=== PATIENT | male | born 1950 | race Two or more races ===

== ENCOUNTER 2017-09-25 09:13 | Inpatient (IN) | payer MEDICARE, MEDICAID ==
[~2017-09-25] VITALS: Ht 177.8 cm; Wt 92.8 kg
[2017-09-25] MEDS ORDERED: SODIUM CHLORIDE 0.9% 1,000 ML IV ONE (10:36)
[2017-09-25] MEDS ORDERED: ONDANSETRON HCL 4 MG/2 ML VIAL IV ONE (10:45)
[2017-09-25] MEDS ORDERED: KETOROLAC TROMETH 30 MG/ML 1ML VIAL IV ONE (10:45)
[2017-09-25] MEDS ORDERED: DEXAMETHASONE SOD PHOS 4 MG/1ML SDV INJ IV ONE (10:45)
[2017-09-25 11:23] LABS: Basophils # (auto) 0.3 uL; Basophils % (auto) 1.1 % (0.0-2.0); Eosinophils # (auto) 0 uL; Eosinophils % (auto) 0.1 % (0.0-7.0); Hematocrit 34.5 % (41.0-53.0); Hemoglobin 11.3 g/dL (13.5-17.5); Lymphocytes # (auto) 1.5 uL; Lymphocytes % (auto) 5.1 % (10.0-50.0); Mean Corpuscular Hemoglobin 32.1 pg (28.0-32.0); Mean Corpuscular Hgb Conc. 32.7 g/dL (32.0-36.0); Mean Corpuscular Volume 98.1 fL (80.0-100.0); Monocytes # (auto) 2.9 uL; Monocytes % (auto) 9.5 % (0.0-12.0); Neutrophils # (auto) 25.2 uL; Neutrophils % (auto) 84.2 % (37.0-80.0); Nucleated Red Blood Cells % 0.1 %; Platelet Count (auto) 256 10^3/uL (140-450); Red Blood Cells 3.52 10^6/uL (4.5-5.90); Red Cell Distribution Width 15.6 % (11.8-14.3); White Blood Cell 29.9 10^3/uL (4.4-10.8)
[2017-09-25 11:43] LABS: Albumin 2.9 g/dL (3.4-5.0); BUN/Creatinine Ratio 14.8; Bilirubin, Total 1.9 mg/dL (0.2-1.0); Calcium 8.3 mg/dL (8.5-10.1); Magnesium 2.6 mg/dL (1.6-2.6); Potassium 3.2 mmol/L (3.5-5.1); Total Protein 7.1 g/dL (6.4-8.2); Uric Acid 6.6 mg/dL (3.5-7.2)
[2017-09-25] MEDS ORDERED: POTASSIUM CHL 10% (20 MEQ/15ML) 15ml ORAL SOLN PO ONE (13:15)
[2017-09-25] MEDS ORDERED: cefTRIAXone 1GM/10ml IVPUSH 10 ML IV ONE (13:15)
[2017-09-25 16:19] LABS: Urine Bacteria NONE SEEN /hpf (None Seen); Urine Blood Negative /uL (Negative); Urine Hyaline Cast FEW /lpf (0 - 2); Urine Specific Gravity 1.016 (1.001-1.035); Urine WBC 1 /hpf (0 - 3)
[2017-09-25] MEDS ORDERED: NITROGLYCERIN 0.4 MG SL TAB SL PRN (19:30)
[2017-09-25] MEDS ORDERED: SOD CHL 0.45% 1,000 ML IV SCH (19:30)
[2017-09-25] MEDS ORDERED: MORPHINE SULFATE 4 MG/ML SYR/VIAL IV PRN (19:30)
[2017-09-25] MEDS ORDERED: TRIATAB3 PO (21:17)
[2017-09-25] MEDS ORDERED: SOTA80TA PO (21:17)
[2017-09-25] MEDS ORDERED: CARV12.544 PO (21:17)
[2017-09-25] MEDS ORDERED: HYOS0.3723 PO (21:17)
[2017-09-25] MEDS ORDERED: ISOS30TA4 PO (21:17)
[2017-09-25] MEDS ORDERED: ATOR1TAB PO (21:17)
[2017-09-25] MEDS ORDERED: DUTA0.5C11 PO (21:17)
[2017-09-25] MEDS ORDERED: IBUP800T24 PO (21:17)
[2017-09-25] MEDS ORDERED: ASPI81TA27 PO (21:17)
[2017-09-25] MEDS ORDERED: ALLO300T2 PO (21:17)
[2017-09-25] MEDS ORDERED: TICA90TA PO (21:17)
[2017-09-25] MEDS ORDERED: LEVO100T8 PO (21:17)
[2017-09-25] MEDS ORDERED: EZET10TA6 PO (21:17)
[2017-09-25] MEDS ORDERED: POTA10TA34 PO (21:17)
[2017-09-25] MEDS: CLINDAMYCIN 600MG IV 50 ML IV SCH (21:33)
[2017-09-25] MEDS ORDERED: TICAGRELOR 90 MG TAB PO SCH (22:00)
[2017-09-25] MEDS: SOTALOL HCL 80 MG TAB PO SCH (22:00)
[2017-09-25] MEDS ORDERED: IBUPROFEN 800 MG TAB PO PRN (22:00)
[2017-09-25] MEDS: D5W/SOD CHL 0.45% 1,000 ML IV SCH (22:25)
[2017-09-25] MEDS: ATORVASTATIN 20 MG TAB PO SCH (22:53)
[2017-09-25] MEDS: HYDROcodone-ACET 5/325MG TAB PO PRN (22:58)
[2017-09-25] MEDS: PIPERACILLIN-TAZOB 3.375GM 50 ML IV SCH (23:23)
[2017-09-26] MEDS: HYDROcodone-ACET 5/325MG TAB PO PRN ×2 (05:00→09:32)
[2017-09-26] MEDS: CLINDAMYCIN 600MG IV 50 ML IV SCH ×3 (05:44→22:14)
[2017-09-26 06:10] LABS: Hematocrit 34.5 % (41.0-53.0); Hemoglobin 10.8 g/dL (13.5-17.5); Mean Corpuscular Hemoglobin 32.6 pg (28.0-32.0); Mean Corpuscular Hgb Conc. 31.4 g/dL (32.0-36.0); Mean Corpuscular Volume 103.9 fL (80.0-100.0); Platelet Count (auto) 212 10^3/uL (140-450); Red Blood Cells 3.32 10^6/uL (4.5-5.90); Red Cell Distribution Width 16.1 % (11.8-14.3); White Blood Cell 27.5 10^3/uL (4.4-10.8)
[2017-09-26 06:12] LABS: Band Neutrophils % (manual) 0; Basophils % (manual) 0 (0.0-2.0); Blast Cells 0; Eosinophils % (manual) 0 (0-7); Metamyelocytes % 0; Myelocytes % 0; Promyelocytes % 0; Reactive Lymphocytes 0
[2017-09-26 06:16] LABS: Albumin 2.5 g/dL (3.4-5.0); BUN/Creatinine Ratio 19.6; Calcium 8.3 mg/dL (8.5-10.1); Potassium 3.5 mmol/L (3.5-5.1); Total Protein 6.8 g/dL (6.4-8.2)
[2017-09-26 07:48] LABS: Lymphocytes % (manual) 5 (10.0-50.0); Monocytes % (manual) 4 (0-12)
[2017-09-26] MEDS: LEVOTHYROXINE SODIUM 100 MCG TAB PO SCH (07:49)
[2017-09-26] MEDS: PIPERACILLIN-TAZOB 3.375GM 50 ML IV SCH ×3 (07:49→18:52)
[2017-09-26] MEDS: D5W/SOD CHL 0.45% 1,000 ML IV SCH ×2 (07:50→17:15)
[2017-09-26] MEDS ORDERED: HYDROCORTISONE 10 MG TAB PO SCH ×2 (08:00→18:00)
[2017-09-26] MEDS: TRIAMTERENE/HCTZ 37.5/25 MG CAP PO SCH (10:00)
[2017-09-26] MEDS: SOTALOL HCL 80 MG TAB PO SCH ×2 (10:00→21:48)
[2017-09-26] MEDS: ASPirin 81 mg TAB PO SCH (10:00)
[2017-09-26] MEDS: ALLOPURINOL 300 MG TAB PO SCH (10:00)
[2017-09-26] MEDS: POTASSIUM CHL 10 Meq TABLET PO SCH (10:00)
[2017-09-26] MEDS: AVODART 0.5 MG PO SCH (10:00)
[2017-09-26] MEDS: ISOSORBIDE MONONITRATE 60 MG TAB PO SCH (10:00)
[2017-09-26 10:27] LABS: Uric Acid 6.3 mg/dL (3.5-7.2)
[2017-09-26 11:25] LABS: CRP High Sensitivity 25.47 mg/dL (< 0.3)
[2017-09-26] MEDS: methylPREDNISolone SOD SUCC 40 MG/ML VL IV SCH ×2 (14:12→22:15)
[2017-09-26] MEDS: ONDANSETRON HCL 4 MG/2 ML VIAL IV PRN (15:20)
[2017-09-26] MEDS ORDERED: ALPRAZolam 0.5 MG TAB PO ONE (15:45)
[2017-09-26] MEDS: HYOSCYAMINE SULF 0.125 MG TAB PO PRN (16:00)
[2017-09-26] MEDS ORDERED: FLEET ENEMA(ADULT) 135 ML PR ONE (17:15)
[2017-09-26] MEDS ORDERED: SODIUM CHLORIDE 0.9% 1,000 ML IV ONE (22:00)
[2017-09-26] MEDS: ATORVASTATIN 20 MG TAB PO SCH (22:15)
[2017-09-27] MEDS ORDERED: metroNIDAZOLE 500MG/100ML 100 ML IV ONE (00:30)
[2017-09-27] MEDS: PIPERACILLIN-TAZOB 3.375GM 50 ML IV SCH ×4 (01:52→17:55)
[2017-09-27] MEDS: D5W/SOD CHL 0.45% 1,000 ML IV SCH ×3 (03:18→23:15)
[2017-09-27 05:45] LABS: Basophils # (auto) 0 uL; Basophils % (auto) 0.1 % (0.0-2.0); Eosinophils # (auto) 0 uL; Hematocrit 27.5 % (41.0-53.0); Hemoglobin 9.1 g/dL (13.5-17.5); Lymphocytes # (auto) 0.5 uL; Lymphocytes % (auto) 1.8 % (10.0-50.0); Mean Corpuscular Hemoglobin 32.4 pg (28.0-32.0); Mean Corpuscular Hgb Conc. 33.3 g/dL (32.0-36.0); Mean Corpuscular Volume 97.3 fL (80.0-100.0); Monocytes # (auto) 0.3 uL; Monocytes % (auto) 1.3 % (0.0-12.0); Neutrophils # (auto) 25.3 uL; Neutrophils % (auto) 96.8 % (37.0-80.0); Platelet Count (auto) 193 10^3/uL (140-450); Red Blood Cells 2.82 10^6/uL (4.5-5.90); Red Cell Distribution Width 15.7 % (11.8-14.3); White Blood Cell 26.1 10^3/uL (4.4-10.8)
[2017-09-27 06:01] LABS: Albumin 2.1 g/dL (3.4-5.0); Bilirubin, Direct 0.4 mg/dL (0-0.2); Bilirubin, Total 0.8 mg/dL (0.2-1.0); Calcium 7.8 mg/dL (8.5-10.1); Potassium 3.3 mmol/L (3.5-5.1)
[2017-09-27] MEDS: CLINDAMYCIN 600MG IV 50 ML IV SCH ×2 (06:26→14:25)
[2017-09-27] MEDS: methylPREDNISolone SOD SUCC 40 MG/ML VL IV SCH ×3 (06:27→22:13)
[2017-09-27] MEDS: LEVOTHYROXINE SODIUM 100 MCG TAB PO SCH ×2 (07:00→11:31)
[2017-09-27] MEDS: metroNIDAZOLE 500MG/100ML 100 ML IV SCH ×3 (07:54→22:13)
[2017-09-27 09:50] LABS: Hepatitis B Surface Antibody Negative
[2017-09-27 10:00] LABS: Hepatitis B Surface Antigen Negative (Negative)
[2017-09-27] MEDS: AVODART 0.5 MG PO SCH (10:00)
[2017-09-27] MEDS: ISOSORBIDE MONONITRATE 60 MG TAB PO SCH (10:00)
[2017-09-27 10:27] LABS: Hepatitis C Antibody Negative (Negative)
[2017-09-27 10:28] LABS: Hepatitis A Total Antibody Positive; Hepatitis B Core Total AB Negative
[2017-09-27] MEDS: SOTALOL HCL 80 MG TAB PO SCH ×2 (10:43→22:14)
[2017-09-27] MEDS: TRIAMTERENE/HCTZ 37.5/25 MG CAP PO SCH (10:43)
[2017-09-27] MEDS: ALLOPURINOL 300 MG TAB PO SCH (11:31)
[2017-09-27] MEDS: ASPirin 81 mg TAB PO SCH (11:31)
[2017-09-27] MEDS: POTASSIUM CHL 10 Meq TABLET PO SCH (11:31)
[2017-09-27] MEDS: HYOSCYAMINE SULF 0.125 MG TAB PO PRN (21:13)
[2017-09-27] MEDS: ALPRAZolam 0.5 MG TAB PO PRN (21:13)
[2017-09-27] MEDS: ATORVASTATIN 20 MG TAB PO SCH (22:14)
[2017-09-28] MEDS: PIPERACILLIN-TAZOB 3.375GM 50 ML IV SCH ×5 (00:21→23:05)
[2017-09-28] MEDS: methylPREDNISolone SOD SUCC 40 MG/ML VL IV SCH ×4 (06:09→23:05)
[2017-09-28] MEDS: metroNIDAZOLE 500MG/100ML 100 ML IV SCH ×3 (06:42→22:00)
[2017-09-28] MEDS: LEVOTHYROXINE SODIUM 100 MCG TAB PO SCH (07:51)
[2017-09-28] MEDS: SOTALOL HCL 80 MG TAB PO SCH ×2 (07:52→23:04)
[2017-09-28] MEDS: ASPirin 81 mg TAB PO SCH (07:52)
[2017-09-28] MEDS: ISOSORBIDE MONONITRATE 60 MG TAB PO SCH (07:52)
[2017-09-28] MEDS: TRIAMTERENE/HCTZ 37.5/25 MG CAP PO SCH (07:52)
[2017-09-28] MEDS: POTASSIUM CHL 10 Meq TABLET PO SCH (07:53)
[2017-09-28] MEDS: ALLOPURINOL 300 MG TAB PO SCH (07:53)
[2017-09-28] MEDS: AVODART 0.5 MG PO SCH (07:57)
[2017-09-28] MEDS: D5W/SOD CHL 0.45% 1,000 ML IV SCH ×2 (09:26→18:41)
[2017-09-28 10:45] LABS: Mean Corpuscular Hemoglobin 31.9 pg (28.0-32.0)
[2017-09-28 10:46] LABS: Mean Corpuscular Hgb Conc. 32.2 g/dL (32.0-36.0); Mean Corpuscular Volume 99.2 fL (80.0-100.0); Platelet Count (auto) 204 10^3/uL (140-450); Red Blood Cells 2.52 10^6/uL (4.5-5.90); White Blood Cell 18.5 10^3/uL (4.4-10.8)
[2017-09-28 11:30] LABS: Band Neutrophils % (manual) 0; Basophils % (manual) 0 (0.0-2.0); Blast Cells 0; Eosinophils % (manual) 0 (0-7); Metamyelocytes % 0; Myelocytes % 0; Promyelocytes % 0; Reactive Lymphocytes 0
[2017-09-28 13:17] LABS: Albumin 2.1 g/dL (3.4-5.0); Calcium 8.2 mg/dL (8.5-10.1); Potassium 3.2 mmol/L (3.5-5.1)
[2017-09-28 13:19] LABS: BUN/Creatinine Ratio 23.5
[2017-09-28 13:24] LABS: Bilirubin, Total 0.6 mg/dL (0.2-1.0); Total Protein 5.6 g/dL (6.4-8.2)
[2017-09-28] MEDS ORDERED: POTASSIUM CHL 20 Meq TABLET PO ONE (14:00)
[2017-09-28 14:20] LABS: Lymphocytes % (manual) 1 (10.0-50.0); Monocytes % (manual) 1 (0-12)
[2017-09-28 17:28] VITALS: BP 119/71
[2017-09-28 22:11] VITALS: BP 134/72
[2017-09-28] MEDS: HYOSCYAMINE SULF 0.125 MG TAB PO PRN (23:02)
[2017-09-28] MEDS: ATORVASTATIN 20 MG TAB PO SCH (23:03)
[2017-09-28] MEDS: ALPRAZolam 0.5 MG TAB PO PRN (23:03)
[2017-09-29 00:46] VITALS: BP 134/72
[2017-09-29] MEDS: metroNIDAZOLE 500MG/100ML 100 ML IV SCH (04:46)
[2017-09-29] MEDS: PIPERACILLIN-TAZOB 3.375GM 50 ML IV SCH (04:46)
[2017-09-29 05:34] VITALS: BP 135/81
[2017-09-29] MEDS: HYOSCYAMINE SULF 0.125 MG TAB PO PRN (05:45)
[2017-09-29] MEDS: ONDANSETRON HCL 4 MG/2 ML VIAL IV PRN (05:46)
[2017-09-29] MEDS: methylPREDNISolone SOD SUCC 40 MG/ML VL IV SCH (06:00)
== END 2017-09-29 09:15 | disposition short-term general hospital (02) | DRG 871 ==
LOC: ER 09:13 → EDBD 09:13 → OVERFLOW 09:14 → EAST 09-28 15:16 → TELE-EAST 09-28 15:28
PROVIDERS: ADMIT Specialist; ATTEND Specialist
DX: A41.9 Sepsis, unspecified organism (principal); R65.21 Severe sepsis with septic shock; E44.0 Moderate protein-calorie malnutrition; N17.9 Acute kidney failure, unspecified; I11.9 Hypertensive heart disease without heart failure; E87.6 Hypokalemia; I25.5 Ischemic cardiomyopathy; F41.9 Anxiety disorder, unspecified; E86.1 Hypovolemia; I25.10 Atherosclerotic heart disease of native coronary artery without angina pectoris; M10.071 Idiopathic gout, right ankle and foot; Z79.899 Other long term (current) drug therapy; Z82.49 Family history of ischemic heart disease and other diseases of the circulatory system; Z95.5 Presence of coronary angioplasty implant and graft; Z95.0 Presence of cardiac pacemaker; Z68.29 Body mass index [BMI] 29.0-29.9, adult; Z88.8 Allergy status to other drugs, medicaments and biological substances; Z91.041 Radiographic dye allergy status; Z91.040 Latex allergy status
CPT/HCPCS: 36415; 36600; 51702; 71046; 73600; 74176; 76700; 80053; 80076; 81001; 82805; 82962; 83036; 83605; 83735; 84550; 85007; 85025; 85027; 85652; 86141; 86704; 86706; 86708; 86803; 87040; 87081; 87086; 87340; 93005; 96361; 96365; 96375; G0378; J1100; J1885; J2405; J2543; J3490

== ENCOUNTER 2020-02-26 17:41 | Emergency (ER) | payer MEDICARE, MEDICAID ==
[~2020-02-26] VITALS: Ht 175.3 cm; Wt 97.5 kg
[~2020-02-26 17:41] MED LIST: ALLO300T2 PO; ASPI-543 PO; ATOR1TAB PO; CARV12.544 PO; DUTA0.5C11 PO; EZET10TA22 PO; HYOS0.3723 PO; IBUP800T24 PO; ISOS30TA4 PO; LEVO100T8 PO; POTA1TAB61 PO; SOTA80TA PO; TICA90TA PO; TRIATAB3 PO
[2020-02-26 20:37] LABS: Basophils # (auto) 0 10 ^3/uL (0-0.2); Basophils % (auto) 0.3 % (0.0-2.0); Eosinophils # (auto) 0 10 ^3/uL (0-0.8); Eosinophils % (auto) 0.2 % (0.0-7.0); Hematocrit 41.8 % (41.0-53.0); Hemoglobin 14.1 g/dL (13.5-17.5); Lymphocytes # (auto) 0.9 10 ^3/uL (0.4-5.4); Lymphocytes % (auto) 8.1 % (10.0-50.0); Mean Corpuscular Hemoglobin 32.9 pg (28.0-32.0); Mean Corpuscular Hgb Conc. 33.8 g/dL (32.0-36.0); Mean Corpuscular Volume 97.2 fL (80.0-100.0); Monocytes # (auto) 0.6 10 ^3/uL (0-1.3); Monocytes % (auto) 4.9 % (0.0-12.0); Neutrophils # (auto) 10.1 10 ^3/uL (1.6-8.6); Neutrophils % (auto) 86.5 % (37.0-80.0); Platelet Count (auto) 204 10^3/uL (140-450); Red Cell Distribution Width 14.6 % (11.8-14.3); White Blood Cell 11.6 10^3/uL (4.4-10.8)
[2020-02-26 20:51] LABS: Albumin 3.6 g/dL (3.4-5.0); BUN/Creatinine Ratio 16.5; Calcium 8.9 mg/dL (8.5-10.1); Potassium 3.3 mmol/L (3.5-5.1)
[2020-02-26 20:54] LABS: Bilirubin, Total 0.9 mg/dL (0.2-1.0); Total Protein 7.3 g/dL (6.4-8.2)
[2020-02-26 21:02] LABS: INR 1.03 (0.9-1.15); Partial Thromboplastin Time 26.7 sec (23.64-32.05)
[2020-02-26] MEDS ORDERED: cefTRIAXone W LIDOCAINE 1 GM IM IM ONE (21:15)
[2020-02-26] MEDS ORDERED: LIDOCAINE 1% HCL (LOCAL ANESTH.) INJ 20ML MDV ONE (21:29)
[2020-02-26] MEDS ORDERED: cefTRIAXone SOD 1,000 MG VL ONE (21:30)
[2020-02-26 22:15] VITALS: BP 162/87
== END 2020-02-26 22:43 | disposition home or self-care (01) ==
LOC: ER 17:41
DX: L03.115 Cellulitis of right lower limb (principal); I10 Essential (primary) hypertension; I25.810 Atherosclerosis of coronary artery bypass graft(s) without angina pectoris; Z86.718 Personal history of other venous thrombosis and embolism; Z95.0 Presence of cardiac pacemaker; Z98.61 Coronary angioplasty status; Z79.899 Other long term (current) drug therapy; Z91.040 Latex allergy status; Z88.8 Allergy status to other drugs, medicaments and biological substances
CPT/HCPCS: 36415; 80053; 85025; 85610; 85730; 93971; 99284; J0696; J2001

== ENCOUNTER 2024-07-18 16:18 | Inpatient (IN) | payer MEDICAID, MEDICARE ==
[~2024-07-18] VITALS: Ht 175.3 cm; Wt 100.3 kg
[~2024-07-18 16:18] MED LIST changes: +ATOR-47 PO; -ATOR1TAB PO; +IBUP-1456 PO; -IBUP800T24 PO; +ISOS1TAB28 PO; -ISOS30TA4 PO; +POTA-215 PO; -POTA1TAB61 PO
--- NOTE | 2024-07-18 16:45 | ED.PDOC ---
GI ASSESSMENT HPI Comments 73-year-old male who comes in with chief complaint of abdominal pain. The patient states that the pain is somewhat epigastric in nature and radiates towards his back. He states that he was at [employer] and the pain was so severe that he had to lay down on the ground. 911 was called and the patient was transferred to our facility. The patient now states that the pain has lasted for about an hour. He rates the pain as a 10/10. When the paramedics arrived, the patient had a blood pressure of 95/65. The patient's blood pressure then went up to 105/65. He denies any nausea or vomiting. The patient also denies any diarrhea at this time. The patient recently had an ablation done on his heart. Time Seen by MD: 16:26 Primary Care Provider: KRISSY Reviewed Notes: Nurses Notes, Cardiopulmonary Physical Therapist Notes, Medications, Allergies (Allergies listed above) Allergies: Coded Allergies: Amlodipine (Verified Allergy, Severe, 09/25/17) Iodine (Verified Allergy, Severe, 09/25/17) Latex (Verified Allergy, Severe, 09/25/17) Home Meds Reported Medications Ibuprofen (Ibuprofen) 800 Mg Tab, 800 MG PO BIDP PRN for MILD PAIN OR TEMP>100.4, MG 09/25/17 Hyoscyamine Sulfate (Hyoscyamine Sulfate) 0.375 Mg Tab, 0.375 MG PO BIDPRN for 30 Days, MG 09/25/17 Aspirin (Aspir-Low) 81 Mg Tab, 81 MG PO DAILY for 30 Days, MG 09/25/17 Ticagrelor Base (BRILINTA) 90 Mg Tab, 90 MG PO BID, TAB 09/25/17 Carvedilol (Carvedilol) 12.5 Mg Tab, 1 TAB PO BID, #180 TAB 1 Refill 09/25/17 Triamterene & Hydrochlorothiaz (Maxzide-25) Tab, 1 TAB PO DAILY, #30 TAB 5 Refills 09/25/17 Dutasteride (Avodart) 0.5 Mg Cap, 1 CAP PO DAILY, #30 CAP 5 Refills 09/25/17 Sotalol Hcl (Sotalol Hcl) 80 Mg Tab, 1 TAB PO BID, #60 TAB 5 Refills 09/25/17 Potassium Chloride (Klor-Con M10) 10 Meq Tab, 1 TAB PO DAILY, #30 TAB 5 Refills 09/25/17 Isosorbide Mononitrate (Isosorbide Mononitrate Er) 30 Mg Tab, 30 MG PO DAILY for 30 Days, MG 09/25/17 Levothyroxine Sodium (Levothyroxine Sodium) 100 Mcg Tab, 100 MCG PO QAM for 30 Days, MCG 09/25/17 Allopurinol (Allopurinol) 300 Mg Tab, 300 MG PO DAILY for 30 Days, MG 09/25/17 Ezetimibe (Zetia) 10 Mg Tab, 1 TAB PO DAILY, #30 TAB 5 Refills 09/25/17 Atorvastatin Calcium (ATORVASTATIN CALCIUM) 80 Mg Tab, 80 MG PO HS, TAB 09/25/17 Information Source: Patient, Emergency Med Personnel Mode of Arrival: EMS Timing: Hours Duration: Since onset Prehospital treatment: 12 Lead EKG, Slot Ambassador Quality: Aching, Burning Vomitus: None Stool: Normal Severity: Severe Recent: None Recent Hx of: None Pain Location: Epigastric Modifying Factors: Nothing Associated sign and symptoms: Abdominal Pain Past Medical History PAST MEDICAL HISTORY: AFIB, CAD, CHF, High Lipids, HTN, Thyroid Past Medical History (Other): Pancreatitis Surgical History: CABG, Cholecystectomy, Pacemaker, PTCA Surgical History (Other): Recent cardiac ablation, right knee surgery Family History Family History: Unknown Social History Smoker: Non-Smoker Alcohol: Rarely Drugs: Denies Drug Use Lives In: Home Constitutional: denies: chills, diaphoresis, fatigue, fever, malaise, sweats, weakness, others EENTM: denies: blurred vision, double vision, ear bleeding, ear discharge, ear drainage, ear pain, ear ringing, eye pain, eye redness, hearing loss, mouth pain, mouth swelling, nasal discharge, nose bleeding, nose congestion, nose pain, photophobia, tearing, throat pain, throat swelling, voice changes, others Respiratory: denies: cough, hemoptysis, orthopnea, SOB at rest, shortness of breath, SOB with excertion, stridor, wheezing, others Cardiovascular: denies: chest pain, dizzy spells, diaphoresis, Dyspnea on exertion, edema, irregular heart beat, left arm pain, lightheadedness, palpitations, PND, syncope, others Gastrointestinal: reports: abdominal pain; denies: abdomen distended, blood streaked bowels, constipated, diarrhea, dysphagia, difficulty swallowing, hematemesis, melena, nausea, poor appetite, poor fluid intake, rectal bleeding, rectal pain, vomiting, others Genitourinary: denies: burning, dysuria, flank pain, frequency, hematuria, incontinence, penile discharge, penile sore, pain, testicle pain, testicle swelling, urgency, others Neurological: denies: dizziness, fainting, headache, left sided numbness, left sided weakness, numbness, paresthesia, pre-existing deficit, right sided numbness, right sided weakness, seizure, speech problems, tingling, tremors, weakness, others Musculoskeletal: denies: back pain, gout, joint pain, joint swelling, muscle pain, muscle stiffness, neck pain, others Integumetry: denies: bruises, change in color, change in hair/nails, dryness, laceration, lesions, lumps, rash, wounds, others Allergic/Immunocompromised: denies: Difficulty Healing, Frequent Infections, Hives, Itching, others Hematologic/Lymphatic: denies: anemia, blood clots, easy bleeding, easy bruising, swollen glands, others Endocrine: denies: excessive hunger, excessive sweating, excessive thirst, excessive urination, flushing, intolerance to cold, intolerance to heat, unexplained weight gain, unexplained weight loss, others Psychiatric: denies: anxiety, bipolar disorder, depression, hopeless, panic disorder, schizophrenia, sleepless, suicidal, others Physical Exam General Appearance: Moderate Distress HEENT: Normal ENT Inspection, Pharynx Normal, TMs Normal Neck: Full Range of Motion, Non-Tender, Normal, Normal Inspection Respiratory: Chest Non-Tender, Lungs Clear, No Accessory Muscle Use, No Respiratory Distress, Normal Breath Sounds Cardiovascular: No Edema, No JVD, No Murmur, No Gallop, Normal Peripheral Pulses, Regular Rate/Rhythm Breast Exam: Deferred Gastrointestinal: Distended, Epigastric, No Organomegaly, No Pulsatile Mass, Normal Bowel Sounds, Soft, Tenderness Genitalia: Deferred Pelvic: Deferred Rectal: Deferred Extremities: No calf tenderness, Normal capillary refill, Normal inspection, Normal range of motion, Non-tender, No pedal edema Musculoskeletal : Apperance: Normal Neurologic: Alert, etl application developer II-XII nml as Tested, No Motor Deficits, Normal Affect, Normal Mood, No Sensory Deficits Cerebellar Function: Normal Reflexes: Normal Skin: Dry, Normal Color, Warm Lymphatic: No Adenopathy EKG EKG : Pulse Rate (adult): 70 [place]: Normal Cardiac Rhythm: Paced ST: Nonsp Was a procedure done? Was a procedure done?: No GI differential Dx Differential Diagnosis: Appendicitis, Bowel Obstruction, Diverticular disease, Gastritis/PUD, Gastroenteritis, Inflammatory BD, Electrolyte Imbalance X-Ray, Labs, Meds, VS Vital Signs Date Time Temp Pulse Resp B/P (MAP) Pulse Ox O2 Delivery O2 Flow Rate FiO2 07/18/24 17:35 70 14 94 Room Air* 0 21 07/18/24 17:35 70 14 100/41 (60) 94 07/18/24 16:45 70 07/18/24 16:30 98.7 97 20 136/63 (87) 95 Lab Test 07/18/24 17:39 Range/Units White Blood Count Pending Red Blood Count Pending Hemoglobin Pending Hematocrit Pending Mean Corpuscular Volume Pending Mean Corpuscular Hemoglobin Pending Mean Corpuscular Hemoglobin Concent Pending Red Cell Distribution Width Pending Platelet Count Pending Mean Platelet Volume Pending Neutrophils (%) (Auto) Pending Lymphocytes (%) (Auto) Pending Monocytes (%) (Auto) Pending Basophils (%) (Auto) Pending Neutrophils # (Auto) Pending Lymphocytes # (Auto) Pending Monocytes # (Auto) Pending Sodium Level Pending Potassium Level Pending Chloride Level Pending Carbon Dioxide Level Pending Anion Gap Pending Blood Urea Nitrogen Pending Creatinine Pending Glomerular Filtration Rate Calc Pending BUN/Creatinine Ratio Pending Serum Glucose Pending Calcium Level Pending Total Bilirubin Pending Aspartate Amino Transferase (AST) Pending Alanine Aminotransferase (ALT) Pending Alkaline Phosphatase Pending Troponin I High Sensitivity Pending Total Protein Pending Albumin Pending Lipase Pending The patient went to CT scan and upon returning the patient was stating that he does not need any pain medication He states that the pain is now gone The patient's labs are pending. Abdomen pelvis shows no sign of any acute disease We did sign the patient out to Dr. Wiggins and we did talk to the patient prior to leaving Images Reviewed?: Images reviewed and evaluated by me Time of 1ST Reevaluation: 16:44 Reevaluation 1ST: Unchanged Patient Education/Counseling: Diagnosis, Treatment, Prognosis Family Education/Counseling: No Family Present Departure 1 Departure Time of Disposition: 18:08 Impression: Primary Impression: Acute abdominal pain Disposition: 30 STILL A PATIENT Condition: Fair Critical Care Note Critical Care Time?: Yes (45 min-critical care time only) Stability Stability form required: No Heart Score Heart Score: Heart Score Response (Comments) Value History Moderate Suspicious 1 EKG Normal 0 Age >65 2 Risk Factors >3 or Hx ASHD 2 Troponin N/A 0 Total 5 AARON GASCA MD Jul 18, 2024 16:45
--- NOTE | 2024-07-18 17:24 | DVH ---
Exam: CT CT AB PEL WO CON-NO ORAL OR IV History: pain Comparison Study: None Technique: Multidetector spiral CT of the abdomen and pelvis was performed from lung bases to pubic symphysis. Imaging was performed without IV contrast. Axial, coronal and sagittal multiplanar reform ats were obtained from the axial data set by the technologist. Radiation dose : Abdomen/Pelvis: CTDIvol 22 mGy, DLP 1209.03 mGy*cm. Findings: Evaluation of solid organs is limited due to lack of intravenous contrast use. Lung Bases: Atelectasis and scarring in the lung bases. Liver: The liver is normal in size. No focal lesions. Gallbladder and biliary Tree: Cholecystectomy. Pneumobilia. Spleen: Unremarkable Pancreas: The pancreas is grossly normal in appearance. Adrenal Glands: Unremarkable Kidneys: Left renal cysts. No hydronephrosis or nephrolithiasis. Bladder: Grossly unremarkable for degree of distention. Bowel: The stomach is grossly normal in appearance. Small bowel and colon are normal in caliber and d istribution. Normal appendix is visualized in the right lower quadrant without findings of appendici tis. Ascites: Absent Lymphadenopathy: No mesenteric, retroperitoneal or periportal lymphadenopathy. Abdominal wall and Mesentery: There is fluid density or nodules in the bilateral groin. Vasculature: The visualized abdominal aorta is normal in size and caliber. There is atherosclerotic calcification of the aorta and its branches. Evaluation of abdominal and pelvic vessels is limited d ue to lack of intravenous contrast. Pelvic Organs: Unremarkable Musculoskeletal: Grade 1 spondylolisthesis of L5 on S1 IMPRESSION: 1. No acute intra-abdominal finding. Nonspecific fluid or nodular density in the bilateral groins. Consider further evaluation with ultrasound. Left renal cysts. Radiation optimization: All CT scans at this facility use at least one of these dose optimization rafy hniques: Automated exposure control mA and/or kV adjustment per patient size (includes targeted exams where dose is matched to clinical indication) or iterative reconstruction. HS:Y
[2024-07-18 17:35] VITALS: PULSE 70; RESP 14; O2SAT 94
--- NOTE | 2024-07-18 18:09 | ECG ---
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
[2024-07-18 18:14] LABS: Basophils # (auto) 0 10 ^3/uL (0-0.2); Basophils % (auto) 0.5 % (0.0-2.0); Eosinophils # (auto) 0.1 10 ^3/uL (0-0.8); Eosinophils % (auto) 0.8 % (0.0-7.0); Hemoglobin 12.6 g/dL (13.5-17.5); Lymphocytes # (auto) 0.8 10 ^3/uL (0.4-5.4); Lymphocytes % (auto) 7.1 % (10.0-50.0); Mean Corpuscular Hemoglobin 32.5 pg (28.0-32.0); Mean Corpuscular Hgb Conc. 33.1 g/dL (32.0-36.0); Mean Corpuscular Volume 98.3 fL (80.0-100.0); Monocytes # (auto) 0.6 10 ^3/uL (0-1.3); Monocytes % (auto) 5.6 % (0.0-12.0); Neutrophils # (auto) 9.2 10 ^3/uL (1.6-8.6); Platelet Count (auto) 156 10^3/uL (140-450); Red Blood Cells 3.86 10^6/uL (4.5-5.90); Red Cell Distribution Width 19.8 % (11.8-14.3); White Blood Cell 10.7 10^3/uL (4.4-10.8)
[2024-07-18] MEDS: PANTOPRAZOLE 40 MG/10 ML VIAL INJ IV ONE (18:16)
[2024-07-18] MEDS: MORPHINE SULFATE 4 MG/ML SYR/VIAL IV ONE (18:16)
[2024-07-18] MEDS: ONDANSETRON HCL 4 MG/2 ML VIAL IV ONE (18:16)
[2024-07-18 18:24] LABS: Albumin 4.1 g/dL (3.2-4.8); Anion Gap 10 (5-15); BUN/Creatinine Ratio 12.8 (10.0-20.0); Blood Urea Nitrogen 22 mg/dL (9-23); Calcium 9.7 mg/dL (8.7-10.4); Carbon Dioxide 25 mmol/L (20-31); Lipase 37 U/L (12-53); Sodium 143 mmol/L (136-145); Total Protein 6.3 g/dL (5.7-8.2)
[2024-07-18 18:27] LABS: Alanine Aminotransferase 69 U/L (7-40); Alkaline Phosphatase 197 U/L (46-116); Aspartate Aminotransferase 137 U/L (13-40); Bilirubin, Total 2.1 mg/dL (0.2-1.0); Chloride 108 mmol/L (98-107); Glucose 150 mg/dL (74-106)
[2024-07-18] MEDS ORDERED: CLOPIDOGREL BISULFATE 75 MG TAB PO ONE (18:45)
[2024-07-18] MEDS: ASPirin 81 mg TAB PO ONE (19:02)
[2024-07-18 19:05] LABS: Urine Bacteria None Seen /hpf (None Seen); Urine WBC None Seen /hpf (0 - 3)
[2024-07-18] MEDS: CLOPIDOGREL BISULFATE 75 MG TAB PO ONE (19:15)
[2024-07-18 19:27] VITALS: PULSE 71; RESP 16; O2SAT 97
[2024-07-18 19:28] LABS: Urine Blood Negative /uL (Negative); Urine Clarity Clear (Clear); Urine Color Yellow (Yellow); Urine Hyaline Cast FEW /lpf (0 - 2); Urine Protein, UAD TRACE (Negative); Urine Specific Gravity 1.023 (1.001-1.035); Urine Urobilinogen 2 mg/dL (Negative); Urine pH 5.5 (5.0-9.0)
--- NOTE | 2024-07-18 19:50 | DVH ---
CHEST RADIOGRAPH Indication: Epigastric pain, elevated troponin Technique: Single frontal view of the chest was obtained Comparison: None FINDINGS: Lines and Tubes: dual lead left sided pacemaker Lungs: No focal consolidation. Pleura: No effusion. No pneumothorax. Cardiomediastinal contours: cardiomegaly Bones: No acute osseous abnormality. IMPRESSION: No acute cardiopulmonary disease.
[2024-07-18] MEDS: SOD CHL 0.45% 1,000 ML IV ONE (21:30)
--- NOTE | 2024-07-18 21:32 | PRN ---
Misceleneous Note Note Note Sign-out received from Dr. Dixon at 6:00 p.m.. 73-year-old male with extensive cardiac history presents with epigastric pain, 10/10 not leave with usual antacids. CT abdomen and pelvis negative for acute process. Labs, imaging pending. Troponin HS elevated at 64 and 63. Patient started on aspirin and Plavix. Case discussed with Dr. Hamilton Case discussed with Dr. Marion. Patient admitted for further treatment, evaluation and monitoring. MARTHA CASTRO MD Jul 18, 2024 21:32
[2024-07-18] MEDS ORDERED: ONDANSETRON HCL 4 MG/2 ML VIAL IV PRN (21:45)
[2024-07-18] MEDS ORDERED: MORPHINE SULFATE INJ 2 MG/ml SYRG IV PRN ×2 (21:45)
[2024-07-18] MEDS ORDERED: NITROGLYCERIN 0.4 MG SL TAB SL PRN (21:45)
[2024-07-18] MEDS ORDERED: DOCUSATE SOD 100 MG CAP PO PRN (21:45)
--- NOTE | 2024-07-18 21:55 | DVHHPRES ---
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 As per patient he was out of [employer] when he started having pain in the upper, [place], 10/10, no aggravating or relieving factor, no radiation. Procedure aborted that because of the pain he went to drug still to get some pain medication were pain was very severe and he had to lay down on the floor. On was called, EMS arrived and his blood pressure was found 95/65, then the blood pressure went up to 105/65. Patient denied any nausea, vomiting, dysuria, constipation, diarrhea, chest pain, short of breath, dysarthria, change in vision, loss of consciousness. Rep orted that he had a cardiac ablation due to atrial fibrillation 2 weeks before at [facility]. Also reported that he had LVEF last 1 was 25%. In she had EKG was negative for any acute ST elevation. Initial lab Workup revealed serum creatinine 1.72, GFR 41, blood sugar 150, transaminitis with amlodipine 2.1, AST 137, ALT 69, alkaline phosphatase 197, lipase 37, mildly elevated troponin I 64> 63> 60, low TSH 0.08. UDS negative, urinalysis negative for UTI. CT abdomen revealed- No acute intra-abdominal finding. Nonspecific fluid or nodular density in the bilateral groins. Consider further evaluation with ultrasound. Left renal cysts. CXR- dual lead left sided pacemaker, cardiomegaly. Whom it include allopurinol 300 mg, atorvastatin 80 mg, ezetemibe, Eliquis 2.5 mg b.i.d., last use 20 mg, cardura, , Jardiance 10 mg, Toprol 25 mg b.i.d., Entresto 1 tab b.i.d., hydrocortisone 50 mg q.d. Past Medical History CAD, CABG x3 in 1992, 2002, 2019, CHF, hypertension, hyperlipidemia, thyroid disease, status post pituitary surgery, atrial fibrillation, ICD in place, status post cardiac ablation Past Surgical History CABGCAD, CABG x3 in 1992, 2002, 2019, status post pituitary surgery, , ICD in place, status post cardiac ablation, he is status post cholecystectomy, retinal surgery-right knee replacement 2021 Past Social History Patient denies is smoking/oxygen alcoholic, denies using drugs, lives weight S at home Review of Systems Review of Systems Allergy- amlodipine, iodine, latex Patient was seen today at the bedside. Cardiovascular- deny acute chest pain or shortness of breath or cough or palpitation Respiratory- denies cough or short of breath or wheezing Gastrointestinal- denies any rectal bleeding, nausea or vomiting Musculoskeletal-denies acute joint swelling or tenderness or redness Neurological- denies acute dysarthria, dysphagia, change in vision Psychiatry- denies depression or SI or HI Skin- denies acute rash or purpura Allergies: Coded Allergies: Amlodipine (Verified Allergy, Severe, 09/25/17) Iodine (Verified Allergy, Severe, 09/25/17) Latex (Verified Allergy, Severe, 09/25/17) Medications Current Medications Medications Dose Ordered Sig/Anna Route Start Time Stop Time Status Last Admin Dose Admin Sodium Chloride 10 ml Q8HR IV 07/18/24 22:00 UNV Ondansetron HCl 4 mg Q4HP PRN IV 07/18/24 21:45 UNV Docusate Sodium 100 mg BIDPRN PRN PO 07/18/24 21:45 UNV Acetaminophen 650 mg Q6HP PRN PO 07/18/24 21:45 UNV Morphine Sulfate 2 mg Q4HPRN PRN IV 07/18/24 21:45 UNV Nitroglycerin 0.4 mg Q5MINP PRN SL 07/18/24 21:45 UNV Morphine Sulfate 2 mg Q30M PRN IV 07/18/24 21:45 UNV Exam Vital Signs Vital Signs Date Time Temp Pulse Resp B/P (MAP) Pulse Ox O2 Delivery O2 Flow Rate FiO2 07/18/24 19:27 71 16 97 Room Air* 0 21 07/18/24 19:27 98.2 145/58 (87) 98.2 Exam General examination- awake, alert, oriented, conversant, obese HEENT- PEER[place], no acute nasal discharge Cardiovascular- S1-S2 audible, rate and rhythm regular, no murmur Respiratory- bilateral lung crackles+ Gastrointestinal-nontender, bowel sound+. Nondistended Musculoskeletal-no acute joint swelling or tenderness or redness# Lower extremity- ++ bilateral leg edema Neurological- cranial nerves intact, no acute dysarthria or dysphagia Psychiatry- denies depression or SI or HI Skin- fragile skin Labs/Xrays Labs Test 07/18/24 21:30 07/18/24 18:20 07/18/24 17:39 Range/Units Urine Color Yellow Yellow Urine Clarity Clear Clear Urine pH 5.5 5.0-9.0 Urine Specific [place] 1.023 1.001-1.035 Urine Protein Trace H Negative Urine Ketones Negative Negative Urine Blood Negative Negative /uL Urine Nitrite Negative Negative Urine Bilirubin Negative Negative Urine Urobilinogen 2 H Negative mg/dL Urine Leukocyte Esterase Negative Negative /uL Urine RBC 1 0 - 3 /hpf Urine WBC None seen 0 - 3 /hpf Urine Squamous Epithelial Cells None seen <5 /hpf Urine Bacteria None seen None Seen /hpf Urine Hyaline Casts Few 0 - 2 /lpf Urine Glucose 4+ H Normal mg/dL White Blood Count 10.7 4.4-10.8 10^3/uL Red Blood Count 3.86 L 4.5-5.90 10^6/uL Hemoglobin 12.6 L 13.5-17.5 g/dL Hematocrit 38.0 L 41.0-53.0 % Mean Corpuscular Volume 98.3 80.0-100.0 fL Mean Corpuscular Hemoglobin 32.5 H 28.0-32.0 pg Mean Corpuscular Hemoglobin Concent 33.1 32.0-36.0 g/dL Red Cell Distribution Width 19.8 H 11.8-14.3 % Platelet Count 156 140-450 10^3/uL Mean Platelet Volume 10.4 6.9-10.8 fL Neutrophils (%) (Auto) 86.0 H 37.0-80.0 % Lymphocytes (%) (Auto) 7.1 L 10.0-50.0 % Monocytes (%) (Auto) 5.6 0.0-12.0 % Eosinophils (%) (Auto) 0.8 0.0-7.0 % Basophils (%) (Auto) 0.5 0.0-2.0 % Neutrophils # (Auto) 9.2 H 1.6-8.6 10 ^3/uL Lymphocytes # (Auto) 0.8 0.4-5.4 10 ^3/uL Monocytes # (Auto) 0.6 0-1.3 10 ^3/uL Eosinophils # (Auto) 0.1 0-0.8 10 ^3/uL Basophils # (Auto) 0 0-0.2 10 ^3/uL Nucleated Red Blood Cells 0.0 % Sodium Level 143 136-145 mmol/L Potassium Level 4.0 3.5-5.1 mmol/L Chloride Level 108 H 98-107 mmol/L Carbon Dioxide Level 25 20-31 mmol/L Anion Gap 10 5-15 Blood Urea Nitrogen 22 9-23 mg/dL Creatinine 1.72 H 0.700-1.30 mg/dL Glomerular Filtration Rate Calc 41 >90 mL/min BUN/Creatinine Ratio 12.8 10.0-20.0 Serum Glucose 150 H 74-106 mg/dL Calcium Level 9.7 8.7-10.4 mg/dL Total Bilirubin 2.1 H 0.2-1.0 mg/dL Aspartate Amino Transferase (AST) 137 H 13-40 U/L Alanine Aminotransferase (ALT) 69 H 7-40 U/L Alkaline Phosphatase 197 H 46-116 U/L Total Protein 6.3 5.7-8.2 g/dL Albumin 4.1 3.2-4.8 g/dL Lipase 37 12-53 U/L Assessment/Plan Assessment/Plan #Acute abdominal pain likely due to gastritis/pancreatitis -lipase 37 -troponin I mildly elevated 64> 63> 60 -CT abdomen revealed- No acute intra-abdominal finding. Nonspecific fluid or nodular density in the bilateral groins. Consider further evaluation with ultrasound. Left renal cysts. CXR- dual lead left sided pacemaker, cardiomegaly. -continue pantoprazole 40 mg IV daily -continue sucralfate 1 g p.o. q.6h # likely NSTEMI likely type 2 from demand related ischemia/likely due to recent cardiac ablation 2 weeks before -continue current management -ordered cardiology consult for further evaluation and care #CAD, CABG x3 in 1992, 2002, 2019, -continue aspirin 81 mg q.d. -pending echo 2D # HFrEF -continue Brilinta 90 mg p.o. b.i.d. # hypertension -carvedilol 12.5 mg p.o. b.i.d. hopefully # hyperlipidemia -continue ezetimibe 10 mg p.o. daily # atrial fibrillation, recent cardiac ablation 2 weeks before -continue sotalol 80 mg p.o. b.i.d. # hypothyroidism due to status post pituitary surgery -TSH 0.08 -continue levothyroxine 100 mg p.o. q.a.m. # CKD stage 3 -dehydration and nephrotoxic drugs # pacemaker in place due to sick sinus syndrome # BPH -continue Flomax 0.4 mg q.d. -continue finasteride 5 mg daily # GOUT -continue allopurinol 100 mg p.o. daily # left renal cyst -incidental CT abdomen finding -follow up outpatient Goals of care/advance care planning; FULL CODE; discussed with the patient >15 minutes PUD prophylaxis: Pantoprazole DVT prophylaxis: Lovenox Plan discussed with Dr. Godl, nursing staff, patient Total time spent on patient evaluation, chart review, assessment and plan, disc ussion discussion >30 minutes Plan discussed with: Patient Plan discussed with: Patient, Other (RN) My Orders Orders - ADELAIDE ORELLANA RESIDENT Procedure Category Date Status Time Admit ADMIT 07/18/24 Transmitted 21:44 Sodium Chloride Lock PHA 07/18/24 Logged (Saline Lock Ns) 22:00 Ondansetron Hcl PHA 07/18/24 Logged (Zofran) 21:45 Docusate Sodium PHA 07/18/24 Logged Capsule (Colace 21:45 Complete Blood Count LAB 07/19/24 Verified 04:00 Comprehensive LAB 07/19/24 Verified Metabolic Panel 04:00 Npo (Nothing By DIET 07/19/24 Transmitted Mouth) Diet Breakfast Acetaminophen Tablet PHA 07/18/24 Logged (Tylenol Tablet) 21:45 Morphine Sulfate PHA 07/18/24 Logged Injection 21:45 Nitroglycerin PHA 07/18/24 Logged Sublingual (Ntrostat 21:45 Morphine Sulfate PHA 07/18/24 Logged Injection 21:45 Oxygen By Nasal RT 07/18/24 Transmitted Cannula 21:44 Stat Ekg For Chest SHAYLA 07/18/24 In Process Pain 21:44 Notify Md Of Changes SHAYLA 07/18/24 In Process From Base 21:44 Racing Driver For SHAYLA 07/18/24 In Process 24 Hours 21:44 Emergency Dysrhythmia SHAYLA 07/18/24 In Process Protocol 21:44 Rhythm Strips Once [employer] [facility] 07/18/24 In Process Every Shift 21:44 Date of Service: Jul 18, 2024 Billing Provider: MELONY GOLD MD Common Visit Codes: 62960-[id number] INP/OBS CARE (HIGH) Secondary Visit Codes: [id number] CARE PLAN 30 MINUTES ADELAIDE ORELLANA RESIDENT Jul 18, 2024 21:55 MELONY GOLD MD Jul 20, 2024 14:58
[2024-07-18] MEDS: SODIUM CHLOR 0.9% PF (SALINE LOCK) 10ML VIAL/SYR IV SCH (22:00)
[2024-07-18] MEDS: CARVEDILOL 12.5 MG TAB PO SCH (22:00)
[2024-07-18] MEDS: TICAGRELOR 90 MG TAB PO SCH (22:00)
[2024-07-18] MEDS: SOTALOL HCL 80 MG TAB PO SCH (22:00)
[2024-07-18] MEDS: ALLOPURINOL 100 MG TAB PO ONE (22:15)
[2024-07-18] MEDS: ISOSORBIDE DINITRATE 10 MG TAB PO ONE (22:30)
[2024-07-18] MEDS ORDERED: MORPHINE SULFATE INJ 2 MG/ml SYRG SC PRN (22:30)
[2024-07-18] MEDS ORDERED: DONNATAL 5ml ORAL Elix (BELLADONNA ALK-PHENOBARB) PO PRN (22:30)
[2024-07-18 22:32] LABS: Amphetamine Screen, Urine Neg (NEGATIVE); Barbiturate Scree,Urine Neg (NEGATIVE); Benzodiazephine Screen, Urine Neg (NEGATIVE); Cannabinoid Screen, Urine Neg (NEGATIVE); Cocaine Screen, Urine Neg (NEGATIVE); Opiate Scree,Urine Neg (NEGATIVE); Phencyclidine Screen, Urine Neg (NEGATIVE)
[2024-07-18 22:35] LABS: Blood Alcohol 3.4 mg/dL (<10); Magnesium 2.5 mg/dL (1.6-2.6)
--- NOTE | 2024-07-18 23:30 | DVHHP2 ---
History of Present Illness 73-year-old male with known history of hypertension, hypercholesterolemia and Atherosclerotic coronary artery disease, status post multiple stent-currently Follows with Dr. Luiz Hamilton cardiology presented to ER with chief symptoms of epigastric abdominal pains spasmodic in nature which refers to back . As per patient he was [facility] when he developed sudden onset of severe epigastric abdominal painsthat compelled him to lay down on floor. As a result paramedics were called and transferred to ER of this facility. The pain was severe at 10/10 That lasted for approximately one hr attended with hypotension BP 95/65 mm Which finally improved to 105/65. There was no nausea vomiting or diarrhea He reports to have recently received ablation in his heart Upon arrival to ER, patient was symptomatic with abdominal pains, hemodynamically frail-received CTA abdomen/pelvis evaluation without remarkable pathology Serial EKGs enzymes were remarkable for acute non-STEMI. He was referred to Dr. 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 and to me for admission under internal medicine service Following my case discussion with ER physician, I attended the patient and admitted To telemetry floor Past Medical History Past medical history records reviewed Past medical history records: R Cardiovascular history: Extensive coronary artery disease requiring CABG, multiple stents x 27 Currently on Brilinta Known history of hypertension requiring antihypertensives Sick sinus--status post pacemaker Respiratory history: No history of COPD asthma Gastrointestinal history: GE reflux Genitourinary history: Chronic kidney disease from hypertension BHP requiring Flomax and Proscar Endocrine history: Hypercholesterolemia-currently on combination of atorvastatin and Zetia Pituitary adenoma Neurology history: No history of CVA Musculoskeletal history: History of gouty arthritis currently on allopurinol Past Surgical History CABG Pacemaker placement 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 History of smoking: Cigarettes: Never History of smoking E cigarettes: Never History of smoking marijuana: Never History of drinking alcohol: Denies History of substance abuse: Never Patient Family History: Cardiovascular disease G8 MOTHER G8 FATHER Allergies: Coded Allergies: Amlodipine (Verified Allergy, Severe, 09/25/17) Iodine (Verified Allergy, Severe, 09/25/17) Latex (Verified Allergy, Severe, 09/25/17) Home Meds Reported Medications Ibuprofen (Ibuprofen) 800 Mg Tab, 800 MG PO BIDP PRN for MILD PAIN OR TEMP>100.4, MG 09/25/17 Hyoscyamine Sulfate (Hyoscyamine Sulfate) 0.375 Mg Tab, 0.375 MG PO BIDPRN for 30 Days, MG 09/25/17 Aspirin (Aspir-Low) 81 Mg Tab, 81 MG PO DAILY for 30 Days, MG 09/25/17 Ticagrelor Base (BRILINTA) 90 Mg Tab, 90 MG PO BID, TAB 09/25/17 Carvedilol (Carvedilol) 12.5 Mg Tab, 1 TAB PO BID, #180 TAB 1 Refill 09/25/17 Triamterene & Hydrochlorothiaz (Maxzide-25) Tab, 1 TAB PO DAILY, #30 TAB 5 Refills 09/25/17 Dutasteride (Avodart) 0.5 Mg Cap, 1 CAP PO DAILY, #30 CAP 5 Refills 09/25/17 Sotalol Hcl (Sotalol Hcl) 80 Mg Tab, 1 TAB PO BID, #60 TAB 5 Refills 09/25/17 Potassium Chloride (Klor-Con M10) 10 Meq Tab, 1 TAB PO DAILY, #30 TAB 5 Refills 09/25/17 Isosorbide Mononitrate (Isosorbide Mononitrate Er) 30 Mg Tab, 30 MG PO DAILY for 30 Days, MG 09/25/17 Levothyroxine Sodium (Levothyroxine Sodium) 100 Mcg Tab, 100 MCG PO QAM for 30 Days, MCG 09/25/17 Allopurinol (Allopurinol) 300 Mg Tab, 300 MG PO DAILY for 30 Days, MG 09/25/17 Ezetimibe (Zetia) 10 Mg Tab, 1 TAB PO DAILY, #30 TAB 5 Refills 09/25/17 Atorvastatin Calcium (ATORVASTATIN CALCIUM) 80 Mg Tab, 80 MG PO HS, TAB 09/25/17 Current Medications Current Medications Medications (Trade) Dose Ordered Sig/Anna Route PRN Reason Start Time Stop Time Status Last Admin Sodium Chloride (Saline Lock Ns) 10 ml Q8HR IV 07/18/24 22:00 Ondansetron HCl (Zofran) 4 mg Q4HP PRN IV NAUSEA / VOMITING 07/18/24 21:45 07/18/24 22:19 DC Docusate Sodium (Colace Capsule) 100 mg BIDPRN PRN PO FOR CONSTIPATION 07/18/24 21:45 Acetaminophen (Tylenol Tablet) 650 mg Q6HP PRN PO PAIN SCALE 1-3 OR TEMP>100.4 07/18/24 21:45 Morphine Sulfate 2 mg Q4HPRN PRN IV SEVERE PAIN (7-10 PAIN SCALE) 07/18/24 21:45 07/18/24 22:24 DC Nitroglycerin (Ntrostat Sublingual) 0.4 mg Q5MINP PRN SL FOR CHEST PAIN 07/18/24 21:45 Morphine Sulfate 2 mg Q30M PRN IV FOR CHEST PAIN 07/18/24 21:45 07/18/24 22:24 DC Tamsulosin HCl (Flomax) 0.4 mg DAILY PO 07/19/24 10:00 Aspirin (Ecotrin Enteric Coated Tablet) 81 mg DAILY PO 07/19/24 10:00 Carvedilol (Coreg Tablet) 12.5 mg BID PO 07/18/24 22:00 EZETIMIBE (Zetia) 10 mg DAILY@LUNCH PO 07/19/24 12:00 Levothyroxine Sodium (Synthroid Tablet) 100 mcg QAM PO 07/19/24 07:00 Sotalol HCl (Betapace) 80 mg BID PO 07/18/24 22:00 Ticagrelor (Brilinta) 90 mg BID PO 07/18/24 22:00 Ondansetron HCl (Zofran) 4 mg Q6HP PRN IV NAUSEA / VOMITING 07/18/24 22:15 Tamsulosin HCl (Flomax) 0.4 mg QPM PO 07/19/24 18:00 Finasteride (Proscar Tablet) 5 mg QPM PO 07/19/24 18:00 Morphine Sulfate 2 mg Q1H PRN SC angina CHEST PAIN 07/18/24 22:30 Belladonna Alkaloids/ Phenobarbital ( Elixir) 5 ml Q8HP PRN PO abdominal spasm pains 07/18/24 22:30 Review of Systems Constitutional: Denies easy tiredness, denies fever chills weight loss HEENT: Denies headache/conjunctival/ENT pains or congestion, Denies hoarse voice, hearing or visual deficit Neck: Denies cervical spine local/radicular pains, denies goiters/stridor Denies stiffness spasms, reduced ROM, RS: Denies chest congestion, cough, wheezing, SOB, pleuritic chest pains CVS: Reports angina, palpitation, SOB, edema, orthopnea, PND GI: Reports epigastric pains, tenderness, loss of appetite,Denies N/V/D, Denies melena, GI bleeding,constipation, : Reports nocturia, prostatism, dysuria, denies flank pains, frequency, hematuria, Denies passing foul odor/cloudy turbid urine, nocturia MS: Denies generalized aches/pains, back pains, spasms, stiffness, Denies radicular pains, denies generalized myalgias/muscle weakness EXTs: Denies edema, rash, open wounds, discoloration, radicular pains NEURO: Denies hypersomnolence, confused mental status, Denies focal weakness or seizures/tremors/myoclonic jerks SKIN: Denies rashes or open ulcerated wound ENDOCRINE: Denies polyuria, polydipsia, denies intolerance to heat and cold HEM/LYMPH: Denies easy tiredness, bruising, lymphadenopathy ALLERGY: Denies allergic reactions Psychiatry: Denies anxiety or depression disorder Otherwise the Review of Systems is Negative as per History & Physical Interview: Yes Vital Signs Vital Signs Date Time Temp Pulse Resp B/P (MAP) Pulse Ox O2 Delivery O2 Flow Rate FiO2 07/18/24 19:27 71 16 97 Room Air* 0 21 07/18/24 19:27 98.2 145/58 (87) 98.2 Physical Exam General appearance: Well-developed, well-nourished elderly white male in discomfort Awake alert oriented x3 no respiratory distress Head: Normocephalic nontraumatic Eyes: EOMI, JOIE, sclera nonicteric, conjunctive- pale ENT: No congestion, NSL bilateral symmetrical, oral mucosa dry Neck: Supple, carotid upstroke +2, trachea midline, JVD-3 cm, C spine- Full ROM No thyroid or lymph node , no use of sternomastoid muscle Chest: Bilateral symmetrical expansions, No costochondral tenderness Lungs: clear breath sounds all over except reduced at bases CVS: PMI- cm medial to L MCL in fifth ICS , S1- S2 NSR no S3 GI: Abdomen soft, obese, bowel sounds normoactive No focal tenderness, no rebound tenderness No hepatosplenomegaly, no mass no hernia , : No CVA tenderness, no bladder mass palpable, genitalia-NE SKIN: Turgor normal, color pink, no rash, no icterus, No varicosity, no ulcers or wounds EXTs: No edema, color pink, no rash, no ecchymosis distal pulses +2 capillary refill <2 seconds, No open wounds JOINTS; full range of motion BACK: No apparent lumbosacral spinal muscle tenderness, LYMPH NODES: No cervical, axillary or inguinal lymph nodes Neuro: Awake alert oriented 4, coherent, all cognitives- intact No pronator drift, no focal motor deficit, No focal sensory deficit, DTR +2, gait steady PSYCH: Affect mildly depressed-denies suicidal ideation Results Labs Test 07/18/24 21:30 07/18/24 18:20 07/18/24 17:39 Range/Units Troponin I High Sensitivity 60 *H </=54 ng/L Urine Color Yellow Yellow Urine Clarity Clear Clear Urine pH 5.5 5.0-9.0 Urine Specific [place] 1.023 1.001-1.035 Urine Protein Trace H Negative Urine Ketones Negative Negative Urine Blood Negative Negative /uL Urine Nitrite Negative Negative Urine Bilirubin Negative Negative Urine Urobilinogen 2 H Negative mg/dL Urine Leukocyte Esterase Negative Negative /uL Urine RBC 1 0 - 3 /hpf Urine WBC None seen 0 - 3 /hpf Urine Squamous Epithelial Cells None seen <5 /hpf Urine Bacteria None seen None Seen /hpf Urine Hyaline Casts Few 0 - 2 /lpf Urine Glucose 4+ H Normal mg/dL Urine Opiates Screen Neg NEGATIVE Urine Fentanyl Screen Neg NEGATIVE Urine Barbiturates Screen Neg NEGATIVE Urine Phencyclidine Screen Neg NEGATIVE Urine Amphetamines Screen Neg NEGATIVE Urine Benzodiazepines Screen Neg NEGATIVE Urine Cocaine Screen Neg NEGATIVE Urine Cannabinoids Screen Neg NEGATIVE White Blood Count 10.7 4.4-10.8 10^3/uL Red Blood Count 3.86 L 4.5-5.90 10^6/uL Hemoglobin 12.6 L 13.5-17.5 g/dL Hematocrit 38.0 L 41.0-53.0 % Mean Corpuscular Volume 98.3 80.0-100.0 fL Mean Corpuscular Hemoglobin 32.5 H 28.0-32.0 pg Mean Corpuscular Hemoglobin Concent 33.1 32.0-36.0 g/dL Red Cell Distribution Width 19.8 H 11.8-14.3 % Platelet Count 156 140-450 10^3/uL Mean Platelet Volume 10.4 6.9-10.8 fL Neutrophils (%) (Auto) 86.0 H 37.0-80.0 % Lymphocytes (%) (Auto) 7.1 L 10.0-50.0 % Monocytes (%) (Auto) 5.6 0.0-12.0 % Eosinophils (%) (Auto) 0.8 0.0-7.0 % Basophils (%) (Auto) 0.5 0.0-2.0 % Neutrophils # (Auto) 9.2 H 1.6-8.6 10 ^3/uL Lymphocytes # (Auto) 0.8 0.4-5.4 10 ^3/uL Monocytes # (Auto) 0.6 0-1.3 10 ^3/uL Eosinophils # (Auto) 0.1 0-0.8 10 ^3/uL Basophils # (Auto) 0 0-0.2 10 ^3/uL Nucleated Red Blood Cells 0.0 % Sodium Level 143 136-145 mmol/L Potassium Level 4.0 3.5-5.1 mmol/L Chloride Level 108 H 98-107 mmol/L Carbon Dioxide Level 25 20-31 mmol/L Anion Gap 10 5-15 Blood Urea Nitrogen 22 9-23 mg/dL Creatinine 1.72 H 0.700-1.30 mg/dL Glomerular Filtration Rate Calc 41 >90 mL/min BUN/Creatinine Ratio 12.8 10.0-20.0 Serum Glucose 150 H 74-106 mg/dL Calcium Level 9.7 8.7-10.4 mg/dL Total Bilirubin 2.1 H 0.2-1.0 mg/dL Aspartate Amino Transferase (AST) 137 H 13-40 U/L Alanine Aminotransferase (ALT) 69 H 7-40 U/L Alkaline Phosphatase 197 H 46-116 U/L Total Protein 6.3 5.7-8.2 g/dL Albumin 4.1 3.2-4.8 g/dL Lipase 37 12-53 U/L PATIENT: MAGNUS BHANDARI ACCT: [id number] UNIT: [id number] : 1950 LOC: ER ROOM / BED: / AGE / SEX: 73 / M ADM STATUS: REG ER SERVICE [id number] ORDERING PHYSICIAN: MARTHA CASTRO MD PROCEDURE(s): CXR1 - CHEST XRAY 1 VIEW REASON: Epigastric pain, elevated troponin ORDER NUMBER(s): [id number], ACCESSION NUMBER(s): [id number] CHEST RADIOGRAPH Indication: Epigastric pain, elevated troponin Comparison: None FINDINGS: Lines and Tubes: dual lead left sided pacemaker Lungs: No focal consolidation. Pleura: No effusion. No pneumothorax. Cardiomediastinal contours: cardiomegaly Bones: No acute osseous abnormality. IMPRESSION: No acute cardiopulmonary disease. ATED BY: ALISHA HERNANDEZ MD DICTATED DATE/TIME: 07/18/241946 SIGNED BY: ALISHA HERNANDEZ MD ORDERING PHYSICIAN: AARON GASCA MD PROCEDURE(s): ABPL - CT AB PEL WO CON-NO ORAL OR IV REASON: pain ORDER NUMBER(s): [id number], ACCESSION NUMBER(s): [id number] History: pain Comparison Study: None Findings: Evaluation of solid organs is limited due to lack of intravenous contrast use. Lung Bases: Atelectasis and scarring in the lung bases. Liver: The liver is normal in size. No focal lesions. Gallbladder and biliary Tree: Cholecystectomy. Pneumobilia. Spleen: Unremarkable Pancreas: The pancreas is grossly normal in appearance. Adrenal Glands: Unremarkable Kidneys: Left renal cysts. No hydronephrosis or nephrolithiasis. Bladder: Grossly unremarkable for degree of distention. Bowel: The stomach is grossly normal in appearance. Small bowel and colon are normal in caliber and distribution. Normal appendix is visualized in the right lower quadrant without findings of appendicitis. Ascites: Absent Lymphadenopathy: No mesenteric, retroperitoneal or periportal lymphadenopathy. Abdominal wall and Mesentery: There is fluid density or nodules in the bilateral groin. Vasculature: The visualized abdominal aorta is normal in size and caliber. There is atherosclerotic calcification of the aorta and its branches. Sue luation of abdominal and pelvic vessels is limited due to lack of intravenous contrast. Pelvic Organs: Unremarkable Musculoskeletal: Grade 1 spondylolisthesis of L5 on S1 IMPRESSION: 1. No acute intra-abdominal finding. Nonspecific fluid or nodular density in the bilateral groins. Consider further evaluation with ultrasound. Left renal cysts. Primary Diagnosis 1. Acute epigastric abdominal pains 2. Acute non STEMI Admitting Diagnosis: 1. Acute epigastric abdominal pains 2. Acute non STEMI 3. Coronary artery disease-status post CABG and PTCA 4. Fairly well-controlled hypertension 5. Hypercholesterolemia 6. Acute kidney injury on CKD 2' Diagnosis/Comorbidities Prostatic hyperplasia Medical decision making: Acute abdominal pains a. Etiology unclear b. Acute non STEMI Present at time of admission: Yes Status: Acute Problem specific AP: 73-year-old elderly white male with known history of hypertensive CAD-status post CABG and PTCA x27 presents with acute epigastric abdominal pains-severe 05/25 attended with hypotension 95/65 mm * Received CT abdomen/pelvis -unremarkable for acute inflammatory condition * EKGs/enzymes unremarkable for acute non-STEMI * Administered antiplatelet agents Plavix and Ecotrin * Referred patient to Dr. Luiz Hamilton for further cardiology evaluation * Case was discussed with ER PA and assigned RN around 9 PM * Full admit orders for telemetry bed was given * Reconciled admission med rec Hypotension Present at time of admission: Yes Status: Acute Problem specific AP: * Etiologic cause could be-hypovolemia, neurogenic from abdominal pains Inadvertent effect of antihypertensive medications/Dyazide * Recommended cautious IV hydration * His blood pressure improved to 145/65 Acute kidney injury on CKD From A intravascular volume depletion B. Inadvertent effect of Dyazide C. Chronic hypertensive kidney disease Present at time of admission: Yes Status: Acute Problem specific AP: * Etiology causes-predominantly from state of hypovolemia, inadvertent effect of Dyazide * Serum creatinine value was high at 1.72 mg/dL * Recommended cautious IV hydration while withholding Dyazide * We will closely monitor patient's renal functions Fairly well-controlled hypertension Hypercholesterolemia Present at time of admission: No Status: Chronic Problem specific AP: * Will cautiously continue antihypertensive medication and low-salt * Will continue patient on Lipitor and low-cholesterol diet Patient education: * Updated depletion about his current condition treatment plans and prognosis * All his questions concerns were satisfactorily addressed Plan Admit to telemetry bed Serial EKGs/enzymes FIO2 2 L via nasal cannula NTG 0.4 mg sublingual Q 5" x 3 angina Morphine sulfate 2 mg slow IV push -unstable angina Reconcile home meds Refer patient to Dr. Luiz Hamilton-notified 2D echo exam VTE precautions Update patient The patient is well informed by me about 1. Clinical impression, treatment plans, side effects of medications, course of the disease and guarded prognosis 2. All patient's question/ concerns raised by patient are satisfactorily addressed by me Plan discussed with: Patient Code Visit Code Visit Total Time (mins): 120 (Including critical care) PAM ASHFORD MD Jul 18, 2024 23:29
--- NOTE | 2024-07-19 03:10 | DVHINCON2 ---
Date of service: Jul 18, 2024 Referring Physician Doni Reason for Consultation Chest pain History of Present Illness This is a 73 year old male with a PMH of CAD, CABG x3 in 1992, 2002, 2019, CHF, hypertension, hyperlipidemia, thyroid disease, status post pituitary surgery, atrial fibrillation, ICD in place, status post cardiac ablation due to atrial fibrillation 2 weeks ago at [facility] was brought in by EMS with complaints of abdominal pain. The patient states that the pain is somewhat epigastric in nature and radiates towards his back. He states that he was at [facility] and the pain was so severe that he had to lay down on the ground. 911 was called and the patient was transferred to our facility. The patient reports his pain lasted for about an hour. He rates the pain as a 10/10. When the paramedics arrived, the patient had a blood pressure of 95/65. EKG shows paced rhythm at 70. CT abd/pel shows no acute intra-abdominal finding. Nonspecific fluid or nodular density in the bilateral groins. Chest x-ray shows NAD. UDS is negative. Urinalysis negative for UTI. 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 AST 137, ALT 69. BNP 150. Troponin 64, 63 and 60. Patient was admitted to the hospital. I am asked to consult on this patient. Family History: Cardiovascular disease G8 MOTHER G8 FATHER Allergies: Coded Allergies: Amlodipine (Verified Allergy, Severe, 09/25/17) Iodine (Verified Allergy, Severe, 09/25/17) Latex (Verified Allergy, Severe, 09/25/17) Home Meds Reported Medications Ibuprofen (Ibuprofen) 800 Mg Tab, 800 MG PO BIDP PRN for MILD PAIN OR TEMP>100.4, MG 09/25/17 Hyoscyamine Sulfate (Hyoscyamine Sulfate) 0.375 Mg Tab, 0.375 MG PO BIDPRN for 30 Days, MG 09/25/17 Aspirin (Aspir-Low) 81 Mg Tab, 81 MG PO DAILY for 30 Days, MG 09/25/17 Ticagrelor Base (BRILINTA) 90 Mg Tab, 90 MG PO BID, TAB 09/25/17 Carvedilol (Carvedilol) 12.5 Mg Tab, 1 TAB PO BID, #180 TAB 1 Refill 09/25/17 Triamterene & Hydrochlorothiaz (Maxzide-25) Tab, 1 TAB PO DAILY, #30 TAB 5 Refills 09/25/17 Dutasteride (Avodart) 0.5 Mg Cap, 1 CAP PO DAILY, #30 CAP 5 Refills 09/25/17 Sotalol Hcl (Sotalol Hcl) 80 Mg Tab, 1 TAB PO BID, #60 TAB 5 Refills 09/25/17 Potassium Chloride (Klor-Con M10) 10 Meq Tab, 1 TAB PO DAILY, #30 TAB 5 Refills 09/25/17 Isosorbide Mononitrate (Isosorbide Mononitrate Er) 30 Mg Tab, 30 MG PO DAILY for 30 Days, MG 09/25/17 Levothyroxine Sodium (Levothyroxine Sodium) 100 Mcg Tab, 100 MCG PO QAM for 30 Days, MCG 09/25/17 Allopurinol (Allopurinol) 300 Mg Tab, 300 MG PO DAILY for 30 Days, MG 09/25/17 Ezetimibe (Zetia) 10 Mg Tab, 1 TAB PO DAILY, #30 TAB 5 Refills 09/25/17 Atorvastatin Calcium (ATORVASTATIN CALCIUM) 80 Mg Tab, 80 MG PO HS, TAB 09/25/17 Current Medications Current Medications Medications (Trade) Dose Ordered Sig/Anna Route PRN Reason Start Time Stop Time Status Last Admin Sodium Chloride (Saline Lock Ns) 10 ml Q8HR IV 07/18/24 22:00 Ondansetron HCl (Zofran) 4 mg Q4HP PRN IV NAUSEA / VOMITING 07/18/24 21:45 07/18/24 22:19 DC Docusate Sodium (Colace Capsule) 100 mg BIDPRN PRN PO FOR CONSTIPATION 07/18/24 21:45 Acetaminophen (Tylenol Tablet) 650 mg Q6HP PRN PO PAIN SCALE 1-3 OR TEMP>100.4 07/18/24 21:45 Morphine Sulfate 2 mg Q4HPRN PRN IV SEVERE PAIN (7-10 PAIN SCALE) 07/18/24 21:45 07/18/24 22:24 DC Nitroglycerin (Ntrostat Sublingual) 0.4 mg Q5MINP PRN SL FOR CHEST PAIN 07/18/24 21:45 Morphine Sulfate 2 mg Q30M PRN IV FOR CHEST PAIN 07/18/24 21:45 07/18/24 22:24 DC Tamsulosin HCl (Flomax) 0.4 mg DAILY PO 07/19/24 10:00 Aspirin (Ecotrin Enteric Coated Tablet) 81 mg DAILY PO 07/19/24 10:00 Carvedilol (Coreg Tablet) 12.5 mg BID PO 07/18/24 22:00 07/18/24 23:55 EZETIMIBE (Zetia) 10 mg DAILY@LUNCH PO 07/19/24 12:00 Levothyroxine Sodium (Synthroid Tablet) 100 mcg QAM PO 07/19/24 07:00 Sotalol HCl (Betapace) 80 mg BID PO 07/18/24 22:00 07/18/24 22:00 Ticagrelor (Brilinta) 90 mg BID PO 07/18/24 22:00 07/18/24 22:00 Ondansetron HCl (Zofran) 4 mg Q6HP PRN IV NAUSEA / VOMITING 07/18/24 22:15 Tamsulosin HCl (Flomax) 0.4 mg QPM PO 07/19/24 18:00 Finasteride (Proscar Tablet) 5 mg QPM PO 07/19/24 18:00 Morphine Sulfate 2 mg Q1H PRN SC angina CHEST PAIN 07/18/24 22:30 Belladonna Alkaloids/ Phenobarbital ( Elixir) 5 ml Q8HP PRN PO abdominal spasm pains 07/18/24 22:30 Pantoprazole Sodium (Protonix) 40 mg DAILY IV 07/19/24 10:00 Sucralfate (Carafate Tab) 1 gm QIDACHS PO 07/19/24 07:00 Patient Own Medication 80 mg HS PO 07/19/24 22:00 07/19/24 00:51 DC Review of Systems Constitutional: denies: chills, diaphoresis, fatigue, fever, malaise, sweats, weakness, others EENTM: denies: blurred vision, double vision, ear bleeding, ear discharge, ear drainage, ear pain, ear ringing, eye pain, eye redness, hearing loss, mouth pain, mouth swelling, nasal discharge, nose bleeding, nose congestion, nose pain, photophobia, tearing, throat pain, throat swelling, voice changes, others Respiratory: denies: cough, hemoptysis, orthopnea, SOB at rest, shortness of breath, SOB with excertion, stridor, wheezing, others Cardiovascular: denies: chest pain, dizzy spells, diaphoresis, Dyspnea on exertion, edema, irregular heart beat, left arm pain, lightheadedness, palpitations, PND, syncope, others Gastrointestinal: reports: abdominal pain; denies: abdomen distended, blood streaked bowels, constipated, diarrhea, dysphagia, difficulty swallowing, hematemesis, melena, nausea, poor appetite, poor fluid intake, rectal bleeding, rectal pain, vomiting, others Genitourinary: denies: burning, dysuria, flank pain, frequency, hematuria, incontinence, penile discharge, penile sore, pain, testicle pain, testicle swelling, urgency, others Neurological: denies: dizziness, fainting, headache, left sided numbness, left sided weakness, numbness, paresthesia, pre-existing deficit, right sided numbness, right sided weakness, seizure, speech problems, tingling, tremors, weakness, others Musculoskeletal: denies: back pain, gout, joint pain, joint swelling, muscle pain, muscle stiffness, neck pain, others Integumetry: denies: bruises, change in color, change in hair/nails, dryness, laceration, lesions, lumps, rash, wounds, others Allergic/Immunocompromised: denies: Difficulty Healing, Frequent Infections, Hives, Itching, others Hematologic/Lymphatic: denies: anemia, blood clots, easy bleeding, easy bruising, swollen glands, others Endocrine: denies: excessive hunger, excessive sweating, excessive thirst, excessive urination, flushing, intolerance to cold, intolerance to heat, unexplained weight gain, unexplained weight loss, others Psychiatric: denies: anxiety, bipolar disorder, depression, hopeless, panic disorder, schizophrenia, sleepless, suicidal, others Vital Signs Vital Signs Date Time Temp Pulse Resp B/P (MAP) Pulse Ox O2 Delivery O2 Flow Rate FiO2 07/19/24 02:19 69 16 117/55 (75) 97 07/18/24 19:27 Room Air* 0 21 07/18/24 19:27 98.2 98.2 Physical Exam GENERAL: Awake, alert, oriented. LUNGS: Clear. CARDIOVASCULAR: Heart sounds are good. ABDOMEN: Soft. Labs/Diagnostic Data Labs Test 07/19/24 00:10 07/18/24 21:30 07/18/24 18:20 07/18/24 17:39 Range/Units Troponin I High Sensitivity 56 *H </=54 ng/L Magnesium Level 2.5 1.6-2.6 mg/dL Thyroid Stimulating Hormone (TSH) 0.08 L 0.55-4.78 uIU/mL Plasma/Serum Blood Alcohol 3.4 <10 mg/dL Urine Color Yellow Yellow Urine Clarity Clear Clear Urine pH 5.5 5.0-9.0 Urine Specific [place] 1.023 1.001-1.035 Urine Protein Trace H Negative Urine Ketones Negative Negative Urine Blood Negative Negative /uL Urine Nitrite Negative Negative Urine Bilirubin Negative Negative Urine Urobilinogen 2 H Negative mg/dL Urine Leukocyte Esterase Negative Negative /uL Urine RBC 1 0 - 3 /hpf Urine WBC None seen 0 - 3 /hpf Urine Squamous Epithelial Cells None seen <5 /hpf Urine Bacteria None seen None Seen /hpf Urine Hyaline Casts Few 0 - 2 /lpf Urine Glucose 4+ H Normal mg/dL Urine Opiates Screen Neg NEGATIVE Urine Fentanyl Screen Neg NEGATIVE Urine Barbiturates Screen Neg NEGATIVE Urine Phencyclidine Screen Neg NEGATIVE Urine Amphetamines Screen Neg NEGATIVE Urine Benzodiazepines Screen Neg NEGATIVE Urine Cocaine Screen Neg NEGATIVE Urine Cannabinoids Screen Neg NEGATIVE White Blood Count 10.7 4.4-10.8 10^3/uL Red Blood Count 3.86 L 4.5-5.90 10^6/uL Hemoglobin 12.6 L 13.5-17.5 g/dL Hematocrit 38.0 L 41.0-53.0 % Mean Corpuscular Volume 98.3 80.0-100.0 fL Mean Corpuscular Hemoglobin 32.5 H 28.0-32.0 pg Mean Corpuscular Hemoglobin Concent 33.1 32.0-36.0 g/dL Red Cell Distribution Width 19.8 H 11.8-14.3 % Platelet Count 156 140-450 10^3/uL Mean Platelet Volume 10.4 6.9-10.8 fL Neutrophils (%) (Auto) 86.0 H 37.0-80.0 % Lymphocytes (%) (Auto) 7.1 L 10.0-50.0 % Monocytes (%) (Auto) 5.6 0.0-12.0 % Eosinophils (%) (Auto) 0.8 0.0-7.0 % Basophils (%) (Auto) 0.5 0.0-2.0 % Neutrophils # (Auto) 9.2 H 1.6-8.6 10 ^3/uL Lymphocytes # (Auto) 0.8 0.4-5.4 10 ^3/uL Monocytes # (Auto) 0.6 0-1.3 10 ^3/uL Eosinophils # (Auto) 0.1 0-0.8 10 ^3/uL Basophils # (Auto) 0 0-0.2 10 ^3/uL Nucleated Red Blood Cells 0.0 % Sodium Level 143 136-145 mmol/L Potassium Level 4.0 3.5-5.1 mmol/L Chloride Level 108 H 98-107 mmol/L Carbon Dioxide Level 25 20-31 mmol/L Anion Gap 10 5-15 Blood Urea Nitrogen 22 9-23 mg/dL Creatinine 1.72 H 0.700-1.30 mg/dL Glomerular Filtration Rate Calc 41 >90 mL/min BUN/Creatinine Ratio 12.8 10.0-20.0 Serum Glucose 150 H 74-106 mg/dL Calcium Level 9.7 8.7-10.4 mg/dL Total Bilirubin 2.1 H 0.2-1.0 mg/dL Aspartate Amino Transferase (AST) 137 H 13-40 U/L Alanine Aminotransferase (ALT) 69 H 7-40 U/L Alkaline Phosphatase 197 H 46-116 U/L B-Type Natriuretic Peptide 150.33 0-100 pg/mL Total Protein 6.3 5.7-8.2 g/dL Albumin 4.1 3.2-4.8 g/dL Lipase 37 12-53 U/L Assessment Acute epigastric abdominal pain. NSTEMI. Coronary artery disease-status post CABG and PTCA. Fairly well-controlled hypertension. Hypercholesterolemia. Acute kidney injury on CKD. Prostatic hyperplasia. HFrEF. Atrial fibrillation, s/p recent cardiac ablation. Plan/Recommendation I agree with your ongoing assessment and care of plan. Trend troponin. Echocardiogram. Aspirin, Lipitor. Coreg. Morphine for pain management. Nitro SL. GI prophylactics. Additional plan as per the hospital course. A total of 45 minutes was spent reviewing the patient record, examining the patient, making a diagnostic and therapeutic plan, discussing this plan with medical personnel, following up on diagnostic studies and following the patient for clinical stability excluding any and all procedures. At least 50% of this time was spent in direct, [id number] contact. Plan discussed with: Patient CHANTEL REY MD Jul 19, 2024 03:10
[2024-07-19] MEDS: LEVOTHYROXINE SODIUM 100 MCG TAB PO SCH (07:11)
[2024-07-19] MEDS: SUCRALFATE 1 GM TAB PO SCH (07:11)
[2024-07-19 07:15] LABS: Basophils # (auto) 0.1 10 ^3/uL (0-0.2); Basophils % (auto) 0.4 % (0.0-2.0); Eosinophils # (auto) 0 10 ^3/uL (0-0.8); Hematocrit 38.1 % (41.0-53.0); Hemoglobin 12.4 g/dL (13.5-17.5); Lymphocytes # (auto) 0.5 10 ^3/uL (0.4-5.4); Mean Corpuscular Hemoglobin 31.8 pg (28.0-32.0); Mean Corpuscular Hgb Conc. 32.6 g/dL (32.0-36.0); Mean Corpuscular Volume 97.3 fL (80.0-100.0); Monocytes % (auto) 5.4 % (0.0-12.0); Neutrophils # (auto) 16.1 10 ^3/uL (1.6-8.6); Neutrophils % (auto) 91.2 % (37.0-80.0); Platelet Count (auto) 158 10^3/uL (140-450); Red Blood Cells 3.92 10^6/uL (4.5-5.90); Red Cell Distribution Width 19.7 % (11.8-14.3); White Blood Cell 17.6 10^3/uL (4.4-10.8)
[2024-07-19 07:40] LABS: Albumin 3.8 g/dL (3.2-4.8); Anion Gap 8 (5-15); Blood Urea Nitrogen 18 mg/dL (9-23); Calcium 9.4 mg/dL (8.7-10.4); Carbon Dioxide 24 mmol/L (20-31); Glucose 94 mg/dL (74-106); Potassium 4.1 mmol/L (3.5-5.1); Sodium 143 mmol/L (136-145)
[2024-07-19 07:41] LABS: Total Protein 6.1 g/dL (5.7-8.2)
[2024-07-19 07:45] LABS: Alanine Aminotransferase 79 U/L (7-40); Alkaline Phosphatase 216 U/L (46-116); Aspartate Aminotransferase 100 U/L (13-40); Bilirubin, Total 1.7 mg/dL (0.2-1.0); Chloride 111 mmol/L (98-107)
[2024-07-19 08:45] VITALS: RESP 18; O2SAT 97
[2024-07-19] MEDS: TAMSULOSIN HYDROCHLORIDE 0.4 MG CAP PO SCH ×2 (10:16→18:39)
[2024-07-19] MEDS: ASPirin-EC 81 mg tab PO SCH (10:16)
[2024-07-19] MEDS: PANTOPRAZOLE 40 MG/10 ML VIAL INJ IV SCH (10:20)
[2024-07-19] MEDS: EZETIMIBE 10 MG TAB PO SCH (12:55)
[2024-07-19 14:20] VITALS: PULSE 66; RESP 16; O2SAT 96
[2024-07-19] MEDS: CEFEPIME 1GM/ 50ML 50 ML IV SCH (14:37)
--- NOTE | 2024-07-19 17:33 | DVHPN2 ---
Progress Note - Dictate Date Seen: Jul 19, 2024 Medical Necessity Reason Pt with a Central, PICC or Fol: No Subjective Patient was seen and evaluated in follow up. Patient is complaining of generalized pain. Patient is ambulating halls. CL 11, QA AUTOMATION ARCHITECT 1.50, AST 100, ALT 79, Trop is 56. Echocardiogram is ordered. vital signs Vital Sign Date Time Temp Pulse Resp B/P (MAP) Pulse Ox O2 Delivery O2 Flow Rate FiO2 07/19/24 13:17 66 18 136/63 (87) 98 07/19/24 11:04 98.1 98.1 07/19/24 08:45 Room Air* 0 N/A Nasal Cannula* medications Current Medications Medications Dose Ordered Sig/Anna Route Start Time Stop Time Status Last Admin Dose Admin Sodium Chloride 10 ml Q8HR IV 07/18/24 22:00 Docusate Sodium 100 mg BIDPRN PRN PO 07/18/24 21:45 Acetaminophen 650 mg Q6HP PRN PO 07/18/24 21:45 Nitroglycerin 0.4 mg Q5MINP PRN SL 07/18/24 21:45 Tamsulosin HCl 0.4 mg DAILY PO 07/19/24 10:00 07/19/24 10:16 0.4 MG Aspirin 81 mg DAILY PO 07/19/24 10:00 07/19/24 10:16 81 MG Carvedilol 12.5 mg BID PO 07/18/24 22:00 07/18/24 23:55 12.5 MG EZETIMIBE 10 mg DAILY@LUNCH PO 07/19/24 12:00 07/19/24 12:55 10 MG Levothyroxine Sodium 100 mcg QAM PO 07/19/24 07:00 07/19/24 07:11 100 MCG Sotalol HCl 80 mg BID PO 07/18/24 22:00 07/19/24 10:15 80 MG Ticagrelor 90 mg BID PO 07/18/24 22:00 07/19/24 10:20 90 MG Ondansetron HCl 4 mg Q6HP PRN IV 07/18/24 22:15 Tamsulosin HCl 0.4 mg QPM PO 07/19/24 18:00 Finasteride 5 mg QPM PO 07/19/24 18:00 Morphine Sulfate 2 mg Q1H PRN SC 07/18/24 22:30 Belladonna Alkaloids/ Phenobarbital 5 ml Q8HP PRN PO 07/18/24 22:30 Pantoprazole Sodium 40 mg DAILY IV 07/19/24 10:00 07/19/24 10:20 40 MG Sucralfate 1 gm QIDACHS PO 07/19/24 07:00 07/19/24 11:49 1 GM Cefepime HCl 50 ml @ 12.5 mls/hr Q8HR IV 07/19/24 14:00 objective GENERAL: Awake, alert, oriented. LUNGS: Clear. CARDIOVASCULAR: Heart sounds are good. ABDOMEN: Soft. laboratory and microbiology Laboratory Tests 07/19/24 06:57 Test 07/19/24 06:57 Range/Units Serum Glucose 94 74-106 mg/dL Problem List Acute epigastric abdominal pain. NSTEMI. Coronary artery disease-status post CABG and PTCA. Fairly well-controlled hypertension. Hypercholesterolemia. Acute kidney injury on CKD. Prostatic hyperplasia. HFrEF. Atrial fibrillation, s/p recent cardiac ablation. Assessment/Plan Continued all current supportive medical care. Echocardiogram. Aspirin, Lipitor. Coreg. Morphine for pain management. Nitro SL. GI prophylactics. Additional plan as per the hospital course. Plan discussed with: Patient CHANTEL REY MD Jul 19, 2024 13:44
[2024-07-19] MEDS: ATORVASTATIN 20 MG TAB PO ONE (18:38)
[2024-07-19] MEDS: FINASTERIDE 5 MG TAB PO SCH (18:38)
[2024-07-19 20:07] VITALS: BP 143/69; PULSE 70; RESP 18; TEMP 97.9; O2SAT 98
[2024-07-19 21:00] VITALS: BP 143/55; PULSE 70; RESP 18; TEMP 98.1; O2SAT 95
[2024-07-19] MEDS ORDERED: PATIENTS OWN MEDICATION (Atorvastatin Calcium 80 MG) PO SCH (22:00)
[2024-07-20] VITALS (9 sets, daily range): BP systolic 108–152; BP diastolic 39–71; PULSE 69–71; RESP 18–20; TEMP 97.7–98.4; O2SAT 94–99
[2024-07-20] MEDS: SOD CHL 0.45% 1,000 ML IV SCH ×2 (00:39→21:45)
--- NOTE | 2024-07-20 01:17 | DVH ---
INDICATION: ELEVATED LFTs TECHNIQUE: Multiple real-time sonographic images of the abdomen were obtained. COMPARISON: None FINDINGS: Liver is homogenous in echogenicity. The liver measures 17.0 cm. No intrahepatic biliary ductal dilatation is noted. The gallbladder wall is unremarkable. No gallstones or gallbladder sludge. No pericholecystic fl uid or edema. The common duct measures 0.9 cm and is unremarkable. The right kidney measures 10.7 cm. No hydronephrosis. The left kidney measures 12.4 cm. No hydronephr osis. Simple cyst seen in the superior pole of the left kidney. The spleen measures 10.7 cm, within normal limits. The echogenicity is within normal limits. The pancreas is not well visualized due to obscuration from bowel gas. The visualized portions of the IVC and aorta are grossly unremarkable. IMPRESSION: 1. Unremarkable exam of the abdomen.
[2024-07-20 07:21] LABS: Basophils # (auto) 0 10 ^3/uL (0-0.2); Basophils % (auto) 0.4 % (0.0-2.0); Eosinophils # (auto) 0.3 10 ^3/uL (0-0.8); Eosinophils % (auto) 2.8 % (0.0-7.0); Hematocrit 37.8 % (41.0-53.0); Hemoglobin 12.9 g/dL (13.5-17.5); Lymphocytes % (auto) 9.3 % (10.0-50.0); Monocytes # (auto) 0.9 10 ^3/uL (0-1.3); Monocytes % (auto) 8.3 % (0.0-12.0); Neutrophils # (auto) 8.6 10 ^3/uL (1.6-8.6); Neutrophils % (auto) 79.2 % (37.0-80.0); Platelet Count (auto) 148 10^3/uL (140-450); Red Cell Distribution Width 19.5 % (11.8-14.3); White Blood Cell 10.9 10^3/uL (4.4-10.8)
[2024-07-20 07:52] LABS: Albumin 3.6 g/dL (3.2-4.8); Anion Gap 7 (5-15); BUN/Creatinine Ratio 13.8 (10.0-20.0); Blood Urea Nitrogen 20 mg/dL (9-23); Calcium 9.6 mg/dL (8.7-10.4); Carbon Dioxide 27 mmol/L (20-31); Cholesterol 133 mg/dL (< 200); Glucose 87 mg/dL (74-106); HDL Cholesterol 50 mg/dL (40-59); LDL Cholesterol 59 mg/dL (< 100); Potassium 3.7 mmol/L (3.5-5.1); Sodium 142 mmol/L (136-145); Triglycerides 115 mg/dL (< 150)
[2024-07-20 07:53] LABS: Chloride 108 mmol/L (98-107)
[2024-07-20 07:54] LABS: Alanine Aminotransferase 69 U/L (7-40); Alkaline Phosphatase 198 U/L (46-116); Aspartate Aminotransferase 68 U/L (13-40); Phosphorus 1.6 mg/dL (2.4-5.1)
[2024-07-20 09:02] LABS: Folate (Folic Acid) 18.07 ng/mL (>5.38)
[2024-07-20] MEDS: ONDANSETRON HCL 4 MG/2 ML VIAL IV PRN (12:15)
--- NOTE | 2024-07-20 14:14 | DVHPN2 ---
Progress Note - Dictate Date Seen: Jul 20, 2024 Medical Necessity Reason Pt with a Central, PICC or Fol: No Subjective Patient was seen and evaluated in follow up. Patient is complaining of generalized pain. WBC 10.9, CL 108, NUCLEAR TEST TECHNICIAN 1.45, AST 68, ALT 69. Abdominal US is unremarkable. vital signs Vital Sign Date Time Temp Pulse Resp B/P (MAP) Pulse Ox O2 Delivery O2 Flow Rate FiO2 07/20/24 11:13 70 138/69 07/20/24 08:44 97.9 20 96 97.9 07/20/24 08:00 Room Air* 0 21 Total Intake and Output 07/19/24 07/19/24 07/20/24 15:00 23:00 07:00 Intake Total 440 ml Balance 440 ml medications Current Medications Medications Dose Ordered Sig/Anna Route Start Time Stop Time Status Last Admin Dose Admin Sodium Chloride 10 ml Q8HR IV 07/18/24 22:00 07/20/24 06:25 10 ML Docusate Sodium 100 mg BIDPRN PRN PO 07/18/24 21:45 Acetaminophen 650 mg Q6HP PRN PO 07/18/24 21:45 Nitroglycerin 0.4 mg Q5MINP PRN SL 07/18/24 21:45 Tamsulosin HCl 0.4 mg DAILY PO 07/19/24 10:00 07/20/24 11:08 0.4 MG Aspirin 81 mg DAILY PO 07/19/24 10:00 07/20/24 10:13 81 MG Carvedilol 12.5 mg BID PO 07/18/24 22:00 07/20/24 10:13 12.5 MG EZETIMIBE 10 mg DAILY@LUNCH PO 07/19/24 12:00 07/20/24 12:11 10 MG Levothyroxine Sodium 100 mcg QAM PO 07/19/24 07:00 07/20/24 06:25 100 MCG Sotalol HCl 80 mg BID PO 07/18/24 22:00 07/20/24 10:13 80 MG Ticagrelor 90 mg BID PO 07/18/24 22:00 07/20/24 10:13 90 MG Ondansetron HCl 4 mg Q6HP PRN IV 07/18/24 22:15 07/20/24 12:15 4 MG Tamsulosin HCl 0.4 mg QPM PO 07/19/24 18:00 07/19/24 18:39 0.4 MG Finasteride 5 mg QPM PO 07/19/24 18:00 07/19/24 18:38 5 MG Morphine Sulfate 2 mg Q1H PRN SC 07/18/24 22:30 Belladonna Alkaloids/ Phenobarbital 5 ml Q8HP PRN PO 07/18/24 22:30 Pantoprazole Sodium 40 mg DAILY IV 07/19/24 10:00 07/20/24 10:13 40 MG Sucralfate 1 gm QIDACHS PO 07/19/24 07:00 07/20/24 12:11 1 GM Cefepime HCl 50 ml @ 12.5 mls/hr Q8HR IV 07/19/24 14:00 07/20/24 06:25 12.5 MLS/HR Sodium Chloride 1,000 ml @ 40 mls/hr Q24H IV 07/20/24 00:00 07/20/24 00:39 40 MLS/HR objective GENERAL: Awake, alert, oriented. LUNGS: Clear. CARDIOVASCULAR: Heart sounds are good. ABDOMEN: Soft. laboratory and microbiology Laboratory Tests 07/20/24 06:35 Test 07/20/24 06:35 Range/Units Serum Glucose 87 74-106 mg/dL Problem List Acute epigastric abdominal pain. NSTEMI. Coronary artery disease-status post CABG and PTCA. Fairly well-controlled hypertension. Hypercholesterolemia. Acute kidney injury on CKD. Prostatic hyperplasia. HFrEF. Atrial fibrillation, s/p recent cardiac ablation. Assessment/Plan Continued all current supportive medical care. Echocardiogram. Aspirin, Lipitor. Coreg. Morphine for pain management. Nitro SL. GI prophylactics. Additional plan as per the hospital course. Dietary Evaluation Review Is there a minimum of two crit: No Plan discussed with: Patient CHANTEL REY MD Jul 20, 2024 12:24
[2024-07-20] MEDS ORDERED: MAGNESIUM SULFATE 1GM/100ML 100 ML IV SCH (22:00)
[2024-07-20] MEDS: NEUTRA-PHOS TABLET PO SCH (23:13)
[2024-07-21] VITALS (10 sets, daily range): BP systolic 119–163; BP diastolic 39–82; PULSE 63–73; RESP 16–20; TEMP 98–99.2; O2SAT 93–98
--- NOTE | 2024-07-21 00:02 | DVHPN2 ---
Progress Note - Dictate Date Seen: Jul 19, 2024 Medical Necessity Reason Pt with a Central, PICC or Fol: No Medical Necessity Reason Evaluation for RUQ abdominal pains, jaundice IV antibiotics Parenteral analgesics Subjective The patient is currently being evaluated and treated acute abdominal pains accompanied by Mild jaundice with elevated liver functions. The latter is Reflective of obstructive jaundice * Recommended patient to receive abdominal ultrasound to looking into Hepato biliary tract obstruction * Refer to Dr. Luiz Hamilton for cardiac evaluation since patient has extensive cardiac history Overnight events are reviewed through medical chart and case discussion with patient's assigned RN while making rounds on patient on the day of service vital signs Vital Sign Vital Sign Date Time Temp Pulse Resp B/P (MAP) Pulse Ox O2 Delivery O2 Flow Rate FiO2 07/19/24 13:17 66 18 136/63 (87) 98 07/19/24 11:04 98.1 98.1 07/19/24 08:45 Room Air* 0 N/A Nasal Cannula* Total Intake and Output 07/19/24 07/19/24 15:00 23:00 Intake Total Balance medications Current Medications Medications Dose Ordered Sig/Anna Route Start Time Stop Time Status Last Admin Dose Admin Sodium Chloride 10 ml Q8HR IV 07/18/24 22:00 07/20/24 23:08 10 ML Docusate Sodium 100 mg BIDPRN PRN PO 07/18/24 21:45 Acetaminophen 650 mg Q6HP PRN PO 07/18/24 21:45 Nitroglycerin 0.4 mg Q5MINP PRN SL 07/18/24 21:45 Tamsulosin HCl 0.4 mg DAILY PO 07/19/24 10:00 07/20/24 11:08 0.4 MG Aspirin 81 mg DAILY PO 07/19/24 10:00 07/20/24 10:13 81 MG Carvedilol 12.5 mg BID PO 07/18/24 22:00 07/20/24 23:07 12.5 MG EZETIMIBE 10 mg DAILY@LUNCH PO 07/19/24 12:00 07/20/24 12:11 10 MG Levothyroxine Sodium 100 mcg QAM PO 07/19/24 07:00 07/20/24 06:25 100 MCG Sotalol HCl 80 mg BID PO 07/18/24 22:00 07/20/24 23:07 80 MG Ticagrelor 90 mg BID PO 07/18/24 22:00 07/20/24 23:07 90 MG Ondansetron HCl 4 mg Q6HP PRN IV 07/18/24 22:15 07/20/24 12:15 4 MG Tamsulosin HCl 0.4 mg QPM PO 07/19/24 18:00 07/20/24 17:33 0.4 MG Finasteride 5 mg QPM PO 07/19/24 18:00 07/20/24 17:32 5 MG Morphine Sulfate 2 mg Q1H PRN SC 07/18/24 22:30 Belladonna Alkaloids/ Phenobarbital 5 ml Q8HP PRN PO 07/18/24 22:30 Pantoprazole Sodium 40 mg DAILY IV 07/19/24 10:00 07/20/24 10:13 40 MG Sucralfate 1 gm QIDACHS PO 07/19/24 07:00 07/20/24 23:07 1 GM Cefepime HCl 50 ml @ 12.5 mls/hr Q12HR IV 07/21/24 02:00 Magnesium Sulfate/ Dextrose 100 ml @ 100 mls/hr Q1HR IV 07/20/24 22:00 Hold Sodium Chloride 1,000 ml @ 25 mls/hr Q24H IV 07/20/24 21:45 Sodium Phosphate 1 tab BID PO 07/20/24 23:30 07/23/24 23:30 07/20/24 23:13 1 TAB objective Physical Exam General appearance: Well-developed, tall obese built elderly white male in mild discomfort Due to recurrent abdominal pains Awake alert oriented x3 no respiratory distress Head: Normocephalic nontraumatic Eyes: EOMI, JOIE, sclera tinge icteric, conjunctive-pale ENT: No congestion, NSL bilateral symmetrical, oral mucosa dry Neck: Supple, carotid upstroke +2, trachea midline, JVD-3 cm, C spine- Full ROM No thyroid or lymph node , no use of sternomastoid muscle Chest: Bilateral symmetrical expansions, No costochondral tenderness Lungs: clear breath sounds all over except reduced at bases CVS: PMI- cm medial to L MCL in fifth ICS , S1- S2 NSR no S3 GI: Abdomen soft, obese, bowel sounds normoactive RUQ tenderness, no rebound tenderness No hepatosplenomegaly, no mass no hernia , : No CVA tenderness, no bladder mass palpable, genitalia-NE SKIN: Turgor normal, color pink, no rash, no icterus, No varicosity, no ulcers or wounds EXTs: No edema, color pink, no rash, no ecchymosis distal pulses +2 capillary refill <2 seconds, No open wounds JOINTS; full range of motion BACK: No apparent lumbosacral spinal muscle tenderness, LYMPH NODES: No cervical, axillary or inguinal lymph nodes Neuro: Awake alert oriented 4, coherent, all cognitives- intact No pronator drift, no focal motor/sensory deficit, gait steady PSYCH: Affect no new findings laboratory and microbiology Laboratory Tests laboratory and microbiology Laboratory Tests 07/19/24 06:57 Test 07/19/24 06:57 Range/Units Serum Glucose 94 74-106 mg/dL ORDERING PHYSICIAN: AARON GASCA MD PROCEDURE(s): ABPL - CT AB PEL WO CON-NO ORAL OR IV REASON: pain ORDER NUMBER(s): [id number], ACCESSION NUMBER(s): [id number] History: pain Comparison Study: None Findings: Evaluation of solid organs is limited due to lack of intravenous contrast use. Lung Bases: Atelectasis and scarring in the lung bases. Liver: The liver is normal in size. No focal lesions. Gallbladder and biliary Tree: Cholecystectomy. Pneumobilia. Spleen: Unremarkable Pancreas: The pancreas is grossly normal in appearance. Adrenal Glands: Unremarkable Kidneys: Left renal cysts. No hydronephrosis or nephrolithiasis. Bladder: Grossly unremarkable for degree of distention. Bowel: The stomach is grossly normal in appearance. Small bowel and colon are normal in caliber and distribution. Normal appendix is visualized in the right lower quadrant without findings of appendicitis. Ascites: Absent Lymphadenopathy: No mesenteric, retroperitoneal or periportal lymphadenopathy. Abdominal wall and Mesentery: There is fluid density or nodules in the bilateral groin. Vasculature: The visualized abdominal aorta is normal in size and caliber. There is atherosclerotic calcification of the aorta and its branches. Evaluation of abdominal and pelvic vessels is limited due to lack of intravenous contrast. Pelvic Organs: Unremarkable Musculoskeletal: Grade 1 spondylolisthesis of L5 on S1 IMPRESSION: 1. No acute intra-abdominal finding. Nonspecific fluid or nodular density in the bilateral groins. Consider further evaluation with ultrasound. Left renal cysts. Problem List Primary Diagnosis 1. Acute RUQ/epigastric abdominal pains a. Suspect hepatobiliary tract sludge b. Rule out choledocholithiasis 2. Leukocytosis From 1. Abdominal pains-etiology unclear 3. Elevated troponins a. Status post recent ablation therapy b. Possible Acute non STEMI 3. Coronary artery disease-status post CABG and PTCA 4. Fairly well-controlled hypertension 5. Hypercholesterolemia 6. Acute kidney injury on CKD From A intravascular volume depletion B. Inadvertent effect of diuretics 2' Diagnosis/Comorbidities Prostatic hyperplasia Assessment/Plan Medical decision making: Acute abdominal pains, hypotension, mild icterus and elevated liver functions Accompanied by leukocytosis.................................................. Improving a. Suspect hepatobiliary sludge b. Rule out choledocholithiasis Present at time of admission: Yes Status: Acute Problem specific AP: * Presented with severe RUQ/epigastric abdominal pains 10 out of 10 last night Attended with hypotension 95/65- the latter could be more hypovolemic than neurogenic. His hemodynamic stability improved as the pain is under control as state of hypovolemia is being corrected. BP improved to 136/63 * Interesting enough imaging studies CT abdomen pelvis did not show acute inflammatory condition affecting internal organs of the abdomen * Recommended ultrasound of abdomen looking into cause of obstructive jaundice Such as hepatobiliary sludge, choledocholithiasis * Currently on IV antibiotics in consult with Dr. Luiz Hamilton * Benefits importance and Side effects of cefepime are well explained to the patient Elevated troponins a. Rule out Acute non STEMI ........................................... Clinically stable Present at time of admission: Yes Status: Acute Problem specific AP: * Patient remains hemodynamically stable * Seen by Dr. Luiz Hamilton * Recommends 2D echo exam * Continued on antiplatelet agents Acute kidney injury on CKD..................................................... Improving From A intravascular volume depletion B. Inadvertent effect of Dyazide C. Chronic hypertensive kidney disease Present at time of admission: Yes Status: Acute Problem specific AP: * Etiology causes-predominantly from state of hypovolemia, inadvertent effect of Dyazide * Electrolyte panels reflective hypovolemic hyperchloremia * Currently on hypotonic saline infusion * Diuretics like Dyazide has been held * Serum creatinine value improved to 1.5 mg/dL as compared to 1.72 mg/dL * We will closely monitor patient's renal functions * Avoid nephrotoxic agents Fairly well-controlled hypertension Hypercholesterolemia Present at time of admission: No Status: Chronic Problem specific AP: * Will cautiously continue antihypertensive medication and low-salt * Will continue patient on Lipitor and low-cholesterol diet 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 RS -obesity hypoventilation and hypoxia, pulmonary embolism, sudden b.CVS-cardiac arrhythmia, embolic events c. GI-GE reflux d. Endocrine-diabetes and comorbidities from diabetes e Neuro-embolic CVA, lifelong disability [id number] susceptibility for Covid infection and comorbidities Recommended patient to follow a. daily weight, b. ADA 1800-calorie diet-40% calories from breakfast 30% calories from lunch and dinner each, avoid carbonated soda c. Recommended aerobic exercises like walking 1-5 miles per day, riding on a stationary bike for 1-2 hours Patient education: * Updated depletion about his current condition treatment plans and prognosis * All his questions concerns were satisfactorily addressed Treatment plans as of today Continue hospital stay at telemetry bed Ultrasound of abdomen Continue IV cefepime FIO2 2 L via nasal cannula NTG 0.4 mg sublingual Q 5" x 3 angina Morphine sulfate 2 mg slow IV push -unstable angina Reconcile home meds Refer patient to Dr. Luiz Hamilton-notified 2D echo exam Education on obesity management VTE precautions Update patient The patient is well informed by me about 1. Clinical impression, treatment plans, side effects of medications, course of the disease and guarded prognosis 2. All patient's question/ concerns raised by patient are satisfactorily addressed by me Plan discussed with: Patient Prognosis Fair to guarded Dietary Evaluation Review Recommendations by RD: Dietary education by RD, Decrease Calorie Intake (Which CC) Expected Outcomes/Goals: Recommend 1800 calorie low carb low-fat diet Recommended intentional weight loss of 50 lb as at rate of 5-6 lb per month A[place] body weight can help patient improve his state of health Is there a minimum of two crit: No Plan discussed with: Patient Total Time (mins): 45 PAM ASHFORD MD Jul 21, 2024 00:02
--- NOTE | 2024-07-21 00:07 | DVHPN2 ---
Progress Note - Dictate Date Seen: Jul 20, 2024 Medical Necessity Reason Pt with a Central, PICC or Fol: No Medical Necessity Reason Evaluation of abdominal pains, jaundice, Elevated liver functions Acute kidney injury IV hydration and IV antibiotics Subjective The patient is currently being evaluated and treated acute abdominal pains Accompanied by leukocytosis, jaundice and elevated liver functions * The patient remains hemodynamically stable, afebrile * Noted improvement in jaundice and elevated liver functions * Abdominal ultrasound unremarkable for gallbladder sludge * Labs are remarkable for hypophosphatemia. Recommended Neutra-Phos Overnight events are reviewed through medical chart and case discussion with patient's assigned RN while making rounds on patient on the day of service vital signs Vital Sign Date Time Temp Pulse Resp B/P (MAP) Pulse Ox O2 Delivery O2 Flow Rate FiO2 07/20/24 11:13 70 138/69 07/20/24 08:44 97.9 20 96 97.9 07/20/24 08:00 Room Air* 0 21 Total Intake and Output 07/19/24 07/19/24 07/20/24 15:00 23:00 07:00 Intake Total 440 ml Balance 440 ml medications Current Medications Medications Dose Ordered Sig/Anna Route Start Time Stop Time Status Last Admin Dose Admin Sodium Chloride 10 ml Q8HR IV 07/18/24 22:00 07/20/24 23:08 10 ML Docusate Sodium 100 mg BIDPRN PRN PO 07/18/24 21:45 Acetaminophen 650 mg Q6HP PRN PO 07/18/24 21:45 Nitroglycerin 0.4 mg Q5MINP PRN SL 07/18/24 21:45 Tamsulosin HCl 0.4 mg DAILY PO 07/19/24 10:00 07/20/24 11:08 0.4 MG Aspirin 81 mg DAILY PO 07/19/24 10:00 07/20/24 10:13 81 MG Carvedilol 12.5 mg BID PO 07/18/24 22:00 07/20/24 23:07 12.5 MG EZETIMIBE 10 mg DAILY@LUNCH PO 07/19/24 12:00 07/20/24 12:11 10 MG Levothyroxine Sodium 100 mcg QAM PO 07/19/24 07:00 07/20/24 06:25 100 MCG Sotalol HCl 80 mg BID PO 07/18/24 22:00 07/20/24 23:07 80 MG Ticagrelor 90 mg BID PO 07/18/24 22:00 07/20/24 23:07 90 MG Ondansetron HCl 4 mg Q6HP PRN IV 07/18/24 22:15 07/20/24 12:15 4 MG Tamsulosin HCl 0.4 mg QPM PO 07/19/24 18:00 07/20/24 17:33 0.4 MG Finasteride 5 mg QPM PO 07/19/24 18:00 07/20/24 17:32 5 MG Morphine Sulfate 2 mg Q1H PRN SC 07/18/24 22:30 Belladonna Alkaloids/ Phenobarbital 5 ml Q8HP PRN PO 07/18/24 22:30 Pantoprazole Sodium 40 mg DAILY IV 07/19/24 10:00 07/20/24 10:13 40 MG Sucralfate 1 gm QIDACHS PO 07/19/24 07:00 07/20/24 23:07 1 GM Cefepime HCl 50 ml @ 12.5 mls/hr Q12HR IV 07/21/24 02:00 Magnesium Sulfate/ Dextrose 100 ml @ 100 mls/hr Q1HR IV 07/20/24 22:00 Hold Sodium Chloride 1,000 ml @ 25 mls/hr Q24H IV 07/20/24 21:45 Sodium Phosphate 1 tab BID PO 07/20/24 23:30 07/23/24 23:30 07/20/24 23:13 1 TAB objective Physical Exam General appearance: Well-developed, tall obese elderly white male in no apparent distress Awake alert oriented x3 no respiratory distress Head: Normocephalic nontraumatic Eyes: EOMI, JOIE, sclera tinge icteric, conjunctive-pale ENT: No congestion, NSL bilateral symmetrical, oral mucosa dry Neck: Supple, carotid upstroke +2, trachea midline, JVD-3 cm, C spine- Full ROM No thyroid or lymph node , no use of sternomastoid muscle Chest: Bilateral symmetrical expansions, No costochondral tenderness Lungs: clear breath sounds all over except reduced at bases CVS: PMI-1.5 cm medial to L MCL in fifth ICS , S1- S2 NSR no S3 GI: Abdomen soft, obese, bowel sounds normoactive RUQ abdominal tenderness, no rebound tenderness No hepatosplenomegaly, no mass no hernia , : No CVA tenderness, no bladder mass palpable, genitalia-NE SKIN: Turgor improving, color pink, no rash, no icterus, No varicosity, no ulcers or wounds EXTs: No edema, color pink, no rash, no ecchymosis Or distal pulses +2 capillary refill <2 seconds, No open wounds JOINTS; full range of motion BACK: No apparent lumbosacral spinal muscle tenderness, LYMPH NODES: No cervical, axillary or inguinal lymph nodes Neuro: Awake alert oriented 4, coherent, all cognitives- intact No pronator drift, no focal motor/sensory deficit, DTR +2, gait steady PSYCH: No new findings laboratory and microbiology Laboratory Tests 07/20/24 06:35 Test 07/20/24 06:35 Range/Units Serum Glucose 87 74-106 mg/dL ORDERING PHYSICIAN: PAM ASHFORD MD PROCEDURE(s): ABDC - ABDOMEN COMPLETE SONOGRAM REASON: ELEVATED LFTs ORDER NUMBER(s): [id number], ACCESSION NUMBER(s): [id number] INDICATION: ELEVATED LFTs TECHNIQUE: Multiple real-time sonographic images of the abdomen were obtained. COMPARISON: None FINDINGS: Liver is homogenous in echogenicity. The liver measures 17.0 cm. No intrahepatic biliary ductal dilatation is noted. The gallbladder wall is unremarkable. No gallstones or gallbladder sludge. No pericholecystic fluid or edema. The common duct measures 0.9 cm and is unremarkable. The right kidney measures 10.7 cm. No hydronephrosis. The left kidney measures 12.4 cm. No hydronephrosis. Simple cyst seen in the superior pole of the left kidney. The spleen measures 10.7 cm, within normal limits. The echogenicity is within normal limits. The pancreas is not well visualized due to obscuration from bowel gas. The visualized portions of the IVC and aorta are grossly unremarkable. IMPRESSION: 1. Unremarkable exam of the abdomen. Problem List Primary Diagnosis 1. Acute RUQ/epigastric abdominal pains a. Suspect hepatobiliary tract sludge b. Rule out choledocholithiasis 2. Leukocytosis From 1. Abdominal pains-etiology unclear 3. Elevated troponins a. Status post recent ablation therapy b. Possible Acute non STEMI 3. Coronary artery disease-status post CABG and PTCA 4. Fairly well-controlled hypertension 5. Hypercholesterolemia 6. Acute kidney injury on CKD From A intravascular volume depletion B. Inadvertent effect of diuretics 2' Diagnosis/Comorbidities Prostatic hyperplasia Assessment/Plan Medical decision making: Acute abdominal pains, hypotension, mild icterus and elevated liver functions Accompanied by leukocytosis.................................................. Improving a. Suspect hepatobiliary sludge b. Rule out choledocholithiasis Present at time of admission: Yes Status: Acute Problem specific AP: * Noted improvement in severe RUQ/epigastric abdominal pains and jaundice * Patient remains hemodynamically stable afebrile * Leukocytosis improved to 10.[address] of 17K as the time of admission * Liver enzymes AST/ALT are improving-total bilirubin slightly worse at 2 mg/dL * Received ultrasound of abdomen unremarkable for hepatobiliary sludge, choledocholithiasis. Other etiology cause of jaundice suggest infectious vs hemolysis be explored * CT abdomen pelvis did not show acute inflammatory condition affecting internal organs * Currently on IV cefepime Elevated troponins a. Rule out Acute non STEMI ........................................... Clinically stable Present at time of admission: Yes Status: Acute Problem specific AP: * Patient remains hemodynamically stable * Seen by Dr. Luiz Hamilton * Recommends 2D echo exam * Continued on antiplatelet agents Acute kidney injury on CKD..................................................... Improving From A intravascular volume depletion B. Inadvertent effect of Dyazide C. Chronic hypertensive kidney disease Present at time of admission: Yes Status: Acute Problem specific AP: * Etiology causes-predominantly from state of hypovolemia, inadvertent effect of Dyazide * Electrolyte panels reflective hypovolemic hyperchloremia * Currently on hypotonic saline infusion * Diuretics like Dyazide has been held * Serum creatinine value improved to 1.45 mg/dL as compared to 1.72 mg/dL * We will closely monitor patient's renal functions * Avoid nephrotoxic agents Fairly well-controlled hypertension Hypercholesterolemia Present at time of admission: No Status: Chronic Problem specific AP: * Will cautiously continue antihypertensive medication and low-salt * Will continue patient on Lipitor and low-cholesterol diet 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 RS -obesity hypoventilation and hypoxia, pulmonary embolism, sudden b.CVS-cardiac arrhythmia, embolic events c. GI-GE reflux d. Endocrine-diabetes and comorbidities from diabetes e Neuro-embolic CVA, lifelong disability [id number] susceptibility for Covid infection and comorbidities Recommended patient to follow a. daily weight, b. ADA 1800-calorie diet-40% calories from breakfast 30% calories from lunch and dinner each, avoid carbonated soda c. Recommended aerobic exercises like walking 1-5 miles per day, riding on a stationary bike for 1-2 hours Patient education: * Updated depletion about his current condition treatment plans and prognosis * All his questions concerns were satisfactorily addressed Treatment plans as of today Continue hospital stay at telemetry bed Reviewed the results of Ultrasound of abdomen Continue IV cefepime FIO2 2 L via nasal cannula NTG 0.4 mg sublingual Q 5" x 3 angina Morphine sulfate 2 mg slow IV push -unstable angina Reconcile home meds Await for 2D echo exam Education on obesity management VTE precautions Update patient The patient is well informed by me about 1. Clinical impression, treatment plans, side effects of medications, course of the disease and guarded prognosis 2. All patient's question/ concerns raised by patient are satisfactorily addressed by me Prognosis fair to guarded Dietary Evaluation Review Recommendations by RD: Dietary education by RD, Decrease Calorie Intake Comments: recommended intentional weight loss of 50 lbs through Low-carb low calorie 1800-calorie diet and aerobic exercises as tolerated Expected Outcomes/Goals: Help avoiding comorbidities due to obesity a. RS -obesity hypoventilation and hypoxia, pulmonary embolism, sudden b.CVS-cardiac arrhythmia, embolic events c. GI-GE reflux d. Endocrine-diabetes and comorbidities from diabetes e Neuro-embolic CVA, lifelong disability [id number] susceptibility for Covid infection and comorbidities Is there a minimum of two crit: No Plan discussed with: Patient Total Time (mins): 45 PAM ASHFORD MD Jul 21, 2024 00:07
[2024-07-21] MEDS: CEFEPIME 1GM/ 50ML 50 ML IV SCH (02:00)
[2024-07-21 06:59] LABS: Albumin 3.6 g/dL (3.2-4.8); Anion Gap 10 (5-15); BUN/Creatinine Ratio 11.4 (10.0-20.0); Blood Urea Nitrogen 17 mg/dL (9-23); Calcium 8.9 mg/dL (8.7-10.4); Carbon Dioxide 24 mmol/L (20-31); Sodium 141 mmol/L (136-145)
[2024-07-21 07:03] LABS: Alanine Aminotransferase 54 U/L (7-40); Alkaline Phosphatase 195 U/L (46-116); Aspartate Aminotransferase 52 U/L (13-40); Chloride 107 mmol/L (98-107); Glucose 74 mg/dL (74-106); Potassium 3.5 mmol/L (3.5-5.1); Total Protein 5.7 g/dL (5.7-8.2)
[2024-07-21] MEDS ORDERED: NEUTRA-PHOS TABLET PO SCH (10:00)
--- NOTE | 2024-07-21 21:06 | DVHPN2 ---
Progress Note - Dictate Date Seen: Jul 21, 2024 Medical Necessity Reason Pt with a Central, PICC or Fol: No Subjective Patient was seen and evaluated in follow up. Patient is complaining of generalized pain. Noted improvement in jaundice. 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 vital signs Vital Sign Date Time Temp Pulse Resp B/P (MAP) Pulse Ox O2 Delivery O2 Flow Rate FiO2 07/21/24 10:13 63 163/74 07/21/24 09:00 98.1 16 95 98.1 07/21/24 08:00 Room Air* 0 21 Total Intake and Output 07/20/24 07/20/24 07/21/24 15:00 23:00 07:00 Intake Total 450 ml 250 ml Output Total 800 ml Balance 450 ml -550 ml medications Current Medications Medications Dose Ordered Sig/Anna Route Start Time Stop Time Status Last Admin Dose Admin Sodium Chloride 10 ml Q8HR IV 07/18/24 22:00 07/21/24 06:25 10 ML Docusate Sodium 100 mg BIDPRN PRN PO 07/18/24 21:45 Acetaminophen 650 mg Q6HP PRN PO 07/18/24 21:45 Nitroglycerin 0.4 mg Q5MINP PRN SL 07/18/24 21:45 Tamsulosin HCl 0.4 mg DAILY PO 07/19/24 10:00 07/21/24 10:13 0.4 MG Aspirin 81 mg DAILY PO 07/19/24 10:00 07/20/24 10:13 81 MG Carvedilol 12.5 mg BID PO 07/18/24 22:00 07/21/24 10:12 12.5 MG EZETIMIBE 10 mg DAILY@LUNCH PO 07/19/24 12:00 07/20/24 12:11 10 MG Levothyroxine Sodium 100 mcg QAM PO 07/19/24 07:00 07/21/24 06:25 100 MCG Sotalol HCl 80 mg BID PO 07/18/24 22:00 07/21/24 10:13 80 MG Ticagrelor 90 mg BID PO 07/18/24 22:00 07/21/24 10:12 90 MG Ondansetron HCl 4 mg Q6HP PRN IV 07/18/24 22:15 07/20/24 12:15 4 MG Tamsulosin HCl 0.4 mg QPM PO 07/19/24 18:00 07/20/24 17:33 0.4 MG Finasteride 5 mg QPM PO 07/19/24 18:00 07/20/24 17:32 5 MG Morphine Sulfate 2 mg Q1H PRN SC 07/18/24 22:30 Belladonna Alkaloids/ Phenobarbital 5 ml Q8HP PRN PO 07/18/24 22:30 Pantoprazole Sodium 40 mg DAILY IV 07/19/24 10:00 07/21/24 10:12 40 MG Sucralfate 1 gm QIDACHS PO 07/19/24 07:00 07/21/24 06:25 1 GM Cefepime HCl 50 ml @ 12.5 mls/hr Q12HR IV 07/21/24 02:00 07/21/24 10:11 12.5 MLS/HR Magnesium Sulfate/ Dextrose 100 ml @ 100 mls/hr Q1HR IV 07/20/24 22:00 Hold Sodium Chloride 1,000 ml @ 25 mls/hr Q24H IV 07/20/24 21:45 Sodium Phosphate 1 tab BID PO 07/20/24 23:30 07/23/24 23:30 07/21/24 10:12 1 TAB objective GENERAL: Awake, alert, oriented. LUNGS: Clear. CARDIOVASCULAR: Heart sounds are good. ABDOMEN: Soft. laboratory and microbiology Laboratory Tests 07/21/24 05:02 07/20/24 06:35 Test 07/21/24 05:02 Range/Units Serum Glucose 74 74-106 mg/dL Problem List Acute epigastric abdominal pain. NSTEMI. Coronary artery disease-status post CABG and PTCA. Fairly well-controlled hypertension. Hypercholesterolemia. Acute kidney injury on CKD. Prostatic hyperplasia. HFrEF. Atrial fibrillation, s/p recent cardiac ablation. Assessment/Plan Continued all current supportive medical care. Echocardiogram. Aspirin, Lipitor. Coreg. Morphine for pain management. Nitro SL. GI prophylactics. Additional plan as per the hospital course. Dietary Evaluation Review Is there a minimum of two crit: No Plan discussed with: Patient CHANTEL REY MD Jul 21, 2024 12:09
--- NOTE | 2024-07-21 22:52 | DVHPN2 ---
Progress Note - Dictate Date Seen: Jul 21, 2024 Medical Necessity Reason Pt with a Central, PICC or Fol: No Medical Necessity Reason Evaluation of RUQ abdominal pain Evaluation for jaundice IV antibiotics IV hydration Subjective The patient is currently being evaluated and treated acute abdominal pains, Jaundice, elevated liver enzymes and acute kidney injury * Symptomatic for nausea and mild worsening of jaundice * Serum total bilirubin values mildly rising 2 mg/dL while liver enzymes Have been improving except for alkaline phosphatase * Consider giving MRCP. Case is discussed with Dr. Luiz Hamilton Patient may require cardiac clearance prior to MRI * Patient is referred to Dr. Luiz Miller Gastroenterology and Dr. Serge Marion infectious disease Overnight events are reviewed through medical chart and case discussion with patient's assigned RN while making rounds on patient on the day of service vital signs Vital Sign Date Time Temp Pulse Resp B/P (MAP) Pulse Ox O2 Delivery O2 Flow Rate FiO2 07/21/24 21:27 73 147/82 07/21/24 17:00 99.2 16 93 99.2 07/21/24 10:00 Room Air* 0 21 Total Intake and Output 07/20/24 07/20/24 07/21/24 15:00 23:00 07:00 Intake Total 450 ml 250 ml Output Total 800 ml Balance 450 ml -550 ml medications Current Medications Medications Dose Ordered Sig/Anna Route Start Time Stop Time Status Last Admin Dose Admin Sodium Chloride 10 ml Q8HR IV 07/18/24 22:00 07/21/24 21:27 10 ML Docusate Sodium 100 mg BIDPRN PRN PO 07/18/24 21:45 Acetaminophen 650 mg Q6HP PRN PO 07/18/24 21:45 Nitroglycerin 0.4 mg Q5MINP PRN SL 07/18/24 21:45 Tamsulosin HCl 0.4 mg DAILY PO 07/19/24 10:00 07/21/24 10:13 0.4 MG Aspirin 81 mg DAILY PO 07/19/24 10:00 07/20/24 10:13 81 MG Carvedilol 12.5 mg BID PO 07/18/24 22:00 07/21/24 21:27 12.5 MG EZETIMIBE 10 mg DAILY@LUNCH PO 07/19/24 12:00 07/21/24 12:04 10 MG Levothyroxine Sodium 100 mcg QAM PO 07/19/24 07:00 07/21/24 21:54 100 MCG Sotalol HCl 80 mg BID PO 07/18/24 22:00 07/21/24 21:27 80 MG Ticagrelor 90 mg BID PO 07/18/24 22:00 07/21/24 21:27 90 MG Ondansetron HCl 4 mg Q6HP PRN IV 07/18/24 22:15 07/21/24 15:39 4 MG Tamsulosin HCl 0.4 mg QPM PO 07/19/24 18:00 07/21/24 17:19 0.4 MG Finasteride 5 mg QPM PO 07/19/24 18:00 07/21/24 17:19 5 MG Morphine Sulfate 2 mg Q1H PRN SC 07/18/24 22:30 Belladonna Alkaloids/ Phenobarbital 5 ml Q8HP PRN PO 07/18/24 22:30 Pantoprazole Sodium 40 mg DAILY IV 07/19/24 10:00 07/21/24 10:12 40 MG Sucralfate 1 gm QIDACHS PO 07/19/24 07:00 07/21/24 21:19 1 GM Magnesium Sulfate/ Dextrose 100 ml @ 100 mls/hr Q1HR IV 07/20/24 22:00 Hold Sodium Chloride 1,000 ml @ 25 mls/hr Q24H IV 07/20/24 21:45 Sodium Phosphate 1 tab BID PO 07/20/24 23:30 07/23/24 23:30 07/21/24 21:27 1 TAB Piperacillin Sod/ Tazobactam Sod 50 ml @ 12.5 mls/hr Q12HR IV 07/22/24 10:00 UNV objective Physical Exam General appearance: Well-developed, tall obese,elderly white male in discomfort Awake alert oriented x3 no respiratory distress Head: Normocephalic nontraumatic Eyes: EOMI, JOIE, sclera tinge icteric, conjunctive-pale ENT: No congestion, NSL bilateral symmetrical, oral mucosa dry Neck: Supple, carotid upstroke +2, trachea midline, JVD-3 cm, C spine- Full ROM No thyroid or lymph node , no use of sternomastoid muscle Chest: Bilateral symmetrical expansions, No costochondral tenderness Lungs: clear breath sounds all over except reduced at bases CVS: PMI- 1.5 cm medial to L MCL in fifth ICS , S1-S2 NSR no S3 GI: Abdomen soft, obese, bowel sounds normoactive RUQ tenderness-present, no rebound tenderness No hepatosplenomegaly, no mass no hernia , : No CVA tenderness, no bladder mass palpable, genitalia-NE SKIN: Turgor normal, color pink, no rash, no icterus, No varicosity, no ulcers or wounds EXTs: No edema, color pink, no rash, no ecchymosis distal pulses +2 capillary refill <2 seconds, No open wounds JOINTS; full range of motion BACK: No apparent lumbosacral spinal muscle tenderness, LYMPH NODES: No cervical, axillary or inguinal lymph nodes Neuro: Awake alert oriented 4, coherent, all cognitives- intact No pronator drift, no focal motor/sensory deficit, DTR + PSYCH: No new focal finding laboratory and microbiology Laboratory Tests 07/21/24 05:02 07/20/24 06:35 Test 07/21/24 05:02 Range/Units Serum Glucose 74 74-106 mg/dL Problem List 1. Acute RUQ/epigastric abdominal pains a. Suspect hepatobiliary tract sludge b. Rule out choledocholithiasis 2. Leukocytosis From 1. Abdominal pains-etiology unclear 3. Elevated troponins a. Status post recent ablation therapy b. Possible Acute non STEMI 3. Coronary artery disease-status post CABG and PTCA 4. Fairly well-controlled hypertension 5. Hypercholesterolemia 6. Acute kidney injury on CKD From A intravascular volume depletion B. Inadvertent effect of diuretics 2' Diagnosis/Comorbidities Prostatic hyperplasia Assessment/Plan Prognosis fair to guarded Dietary Evaluation Review Is there a minimum of two crit: No Plan discussed with: Patient Total Time (mins): 45 Primary Diagnosis 1. Acute epigastric abdominal pains 2. Acute non STEMI Admitting Diagnosis: 1. Acute epigastric abdominal pains 2. Acute non STEMI 3. Coronary artery disease-status post CABG and PTCA 4. Fairly well-controlled hypertension 5. Hypercholesterolemia 6. Acute kidney injury on CKD 2' Diagnosis/Comorbidities Prostatic hyperplasia Assessment/Plan Medical decision making: Acute abdominal pains, hypotension, mild icterus and elevated liver functions Accompanied by leukocytosis.................................................. Improving a. Suspect hepatobiliary sludge b. Rule out choledocholithiasis Present at time of admission: Yes Status: Acute Problem specific AP: * Noted improvement in severe RUQ/epigastric abdominal pains and jaundice * Patient remains hemodynamically stable afebrile * Leukocytosis improved to 10.[address] of 17K as the time of admission * Liver enzymes AST/ALT are improving-total bilirubin slightly worse at 2 mg/dL * Received ultrasound of abdomen unremarkable for hepatobiliary sludge, choledocholithiasis. Other etiology cause of jaundice suggest infectious vs hemolysis be explored. Order reticulocyte count haptoglobin and LDH As well as hepatitis panel * CT abdomen pelvis did not show acute inflammatory condition affecting internal organs * Replace Cefepime with help of Zosyn Elevated troponins a. Rule out Acute non STEMI ........................................... Clinically stable Present at time of admission: Yes Status: Acute Problem specific AP: * Patient remains hemodynamically stable * Seen by Dr. Luiz Hamilton * Recommends 2D echo exam * Continued on antiplatelet agents Acute kidney injury on CKD..................................................... Improving From A intravascular volume depletion B. Inadvertent effect of Dyazide C. Chronic hypertensive kidney disease Present at time of admission: Yes Status: Acute Problem specific AP: * Etiology causes-predominantly from state of hypovolemia, inadvertent effect of Dyazide * Electrolyte panels reflective hypovolemic hyperchloremia * Currently on hypotonic saline infusion * Diuretics like Dyazide has been held * Serum creatinine value improved to 1.49 mg/dL as compared to 1.72 mg/dL * We will closely monitor patient's renal functions * Avoid nephrotoxic agents Fairly well-controlled hypertension Hypercholesterolemia Present at time of admission: No Status: Chronic Problem specific AP: * Will cautiously continue antihypertensive medication and low-salt * Will continue patient on Lipitor and low-cholesterol diet 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 RS -obesity hypoventilation and hypoxia, pulmonary embolism, sudden b.CVS-cardiac arrhythmia, embolic events c. GI-GE reflux d. Endocrine-diabetes and comorbidities from diabetes e Neuro-embolic CVA, lifelong disability [id number] susceptibility for Covid infection and comorbidities Recommended patient to follow a. daily weight, b. ADA 1800-calorie diet-40% calories from breakfast 30% calories from lunch and dinner each, avoid carbonated soda c. Recommended aerobic exercises like walking 1-5 miles per day, riding on a stationary bike for 1-2 hours Patient education: * Updated depletion about his current condition treatment plans and prognosis * All his questions concerns were satisfactorily addressed Treatment plans as of today Continue hospital stay at telemetry bed Replace Cefepime with help of Zosyn Monitor CBC CMP Order hepatitis Refer to Dr. Luiz Miller gastroenterology-case discussed with him Refer to Dr. Serge marion, infectious Disease Reviewed the results of Ultrasound CT of abdomen with patient Continue Neutra-Phos FIO2 2 L via nasal cannula NTG 0.4 mg sublingual Q 5" x 3 angina Morphine sulfate 2 mg slow IV push -unstable angina Reconcile home meds Await for 2D echo exam Education on obesity management VTE precautions Update patient The patient is well informed by me about 1. Clinical impression, treatment plans, side effects of medications, course of the disease and guarded prognosis 2. All patient's question/ concerns raised by patient are satisfactorily addressed by me Dietary Evaluation Review Recommendations by RD: Decrease Calorie Intake Comments: Recommended intentional weight loss of 50 lbs through Low-carb low calorie 1800-calorie diet and aerobic exercises as tolerated a. RS -obesity hypoventilation and hypoxia, pulmonary embolism, sudden b.CVS-cardiac arrhythmia, embolic events c. GI-GE reflux d. Endocrine-diabetes and comorbidities from diabetes e Neuro-embolic CVA, lifelong disability [id number] susceptibility for Covid infection and comorbidities Expected Outcomes/Goals: Help avoiding comorbidities due to obesity Is there a minimum of two crit: No Plan discussed with: Patient Total Time (mins): 45 PAM MARION MD Jul 21, 2024 22:52
[2024-07-22] VITALS (9 sets, daily range): BP systolic 105–153; BP diastolic 36–86; PULSE 63–76; RESP 17–20; TEMP 99–102.9; O2SAT 91–97
[2024-07-22 08:32] LABS: Basophils # (auto) 0.1 10 ^3/uL (0-0.2); Basophils % (auto) 0.6 % (0.0-2.0); Eosinophils # (auto) 0.3 10 ^3/uL (0-0.8); Eosinophils % (auto) 3.5 % (0.0-7.0); Hematocrit 36.8 % (41.0-53.0); Hemoglobin 12.7 g/dL (13.5-17.5); Lymphocytes # (auto) 0.7 10 ^3/uL (0.4-5.4); Lymphocytes % (auto) 6.9 % (10.0-50.0); Mean Corpuscular Hemoglobin 33.1 pg (28.0-32.0); Mean Corpuscular Hgb Conc. 34.7 g/dL (32.0-36.0); Mean Corpuscular Volume 95.6 fL (80.0-100.0); Monocytes # (auto) 0.8 10 ^3/uL (0-1.3); Monocytes % (auto) 8.7 % (0.0-12.0); Neutrophils # (auto) 7.8 10 ^3/uL (1.6-8.6); Neutrophils % (auto) 80.3 % (37.0-80.0); Nucleated Red Blood Cells % 0.2 %; Platelet Count (auto) 145 10^3/uL (140-450); Red Blood Cells 3.85 10^6/uL (4.5-5.90); Red Cell Distribution Width 18.9 % (11.8-14.3); White Blood Cell 9.7 10^3/uL (4.4-10.8)
[2024-07-22 08:33] LABS: Chloride 105 mmol/L (98-107); Potassium 3.7 mmol/L (3.5-5.1); Sodium 139 mmol/L (136-145)
[2024-07-22 08:43] LABS: BUN/Creatinine Ratio 9.6 (10.0-20.0); Blood Urea Nitrogen 15 mg/dL (9-23); Glucose 81 mg/dL (74-106); Magnesium 1.9 mg/dL (1.6-2.6)
[2024-07-22 08:44] LABS: Alanine Aminotransferase 47 U/L (7-40); Albumin 3.7 g/dL (3.2-4.8); Alkaline Phosphatase 214 U/L (46-116); Aspartate Aminotransferase 40 U/L (13-40)
[2024-07-22 08:45] LABS: Total Protein 6.2 g/dL (5.7-8.2)
[2024-07-22 08:47] LABS: Bilirubin, Total 2.4 mg/dL (0.2-1.0); Phosphorus 2.2 mg/dL (2.4-5.1)
[2024-07-22 09:13] LABS: Anion Gap 8 (5-15); Carbon Dioxide 26 mmol/L (20-31)
[2024-07-22] MEDS: PIPERACILLIN-TAZOB 2.25GM 50 ML IV SCH ×2 (10:29→17:29)
--- NOTE | 2024-07-22 13:13 | DVHPN2 ---
Progress Note - Dictate Date Seen: Jul 22, 2024 Medical Necessity Reason Pt with a Central, PICC or Fol: No Subjective Patient was seen and evaluated in follow up. Patient is complaining of generalized pain. 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 vital signs Vital Sign Date Time Temp Pulse Resp B/P (MAP) Pulse Ox O2 Delivery O2 Flow Rate FiO2 07/22/24 11:33 71 133/62 07/22/24 10:00 96 Room Air 0.0 07/22/24 10:00 21 07/22/24 09:00 99.1 18 99.1 Total Intake and Output 07/21/24 07/21/24 07/22/24 15:00 23:00 07:00 Intake Total 100 ml 540 ml 600 ml Output Total 825 ml Balance 100 ml 540 ml -225 ml medications Current Medications Medications Dose Ordered Sig/Anna Route Start Time Stop Time Status Last Admin Dose Admin Sodium Chloride 10 ml Q8HR IV 07/18/24 22:00 07/22/24 06:17 10 ML Docusate Sodium 100 mg BIDPRN PRN PO 07/18/24 21:45 Acetaminophen 650 mg Q6HP PRN PO 07/18/24 21:45 Nitroglycerin 0.4 mg Q5MINP PRN SL 07/18/24 21:45 Tamsulosin HCl 0.4 mg DAILY PO 07/19/24 10:00 07/22/24 10:30 0.4 MG Aspirin 81 mg DAILY PO 07/19/24 10:00 07/20/24 10:13 81 MG Carvedilol 12.5 mg BID PO 07/18/24 22:00 07/22/24 10:31 12.5 MG EZETIMIBE 10 mg DAILY@LUNCH PO 07/19/24 12:00 07/22/24 11:33 10 MG Levothyroxine Sodium 100 mcg QAM PO 07/19/24 07:00 07/22/24 06:27 100 MCG Sotalol HCl 80 mg BID PO 07/18/24 22:00 07/22/24 10:30 80 MG Ticagrelor 90 mg BID PO 07/18/24 22:00 07/22/24 10:29 90 MG Ondansetron HCl 4 mg Q6HP PRN IV 07/18/24 22:15 07/21/24 15:39 4 MG Tamsulosin HCl 0.4 mg QPM PO 07/19/24 18:00 07/21/24 17:19 0.4 MG Finasteride 5 mg QPM PO 07/19/24 18:00 07/21/24 17:19 5 MG Morphine Sulfate 2 mg Q1H PRN SC 07/18/24 22:30 Belladonna Alkaloids/ Phenobarbital 5 ml Q8HP PRN PO 07/18/24 22:30 Pantoprazole Sodium 40 mg DAILY IV 07/19/24 10:00 07/22/24 10:29 40 MG Sucralfate 1 gm QIDACHS PO 07/19/24 07:00 07/22/24 11:33 1 GM Magnesium Sulfate/ Dextrose 100 ml @ 100 mls/hr Q1HR IV 07/20/24 22:00 Hold Sodium Chloride 1,000 ml @ 25 mls/hr Q24H IV 07/20/24 21:45 Sodium Phosphate 1 tab BID PO 07/20/24 23:30 07/23/24 23:30 07/22/24 10:30 1 TAB Piperacillin Sod/ Tazobactam Sod 50 ml @ 12.5 mls/hr Q12HR IV 07/22/24 10:00 07/22/24 10:29 12.5 MLS/HR objective GENERAL: Awake, alert, oriented. LUNGS: Clear. CARDIOVASCULAR: Heart sounds are good. ABDOMEN: Soft. laboratory and microbiology Laboratory Tests 07/22/24 07:35 Test 07/22/24 07:35 Range/Units Serum Glucose 81 74-106 mg/dL Problem List Acute epigastric abdominal pain. NSTEMI. Coronary artery disease-status post CABG and PTCA. Fairly well-controlled hypertension. Hypercholesterolemia. Acute kidney injury on CKD. Prostatic hyperplasia. HFrEF. Atrial fibrillation, s/p recent cardiac ablation. Assessment/Plan Continued all current supportive medical care. Echocardiogram. Aspirin, Lipitor. Coreg. Morphine for pain management. Nitro SL. GI prophylactics. Additional plan as per the hospital course. Dietary Evaluation Review Is there a minimum of two crit: No Plan discussed with: Patient CHANTEL REY MD Jul 22, 2024 12:11
[2024-07-22] MEDS: ACETAMINOPHEN 325 MG TAB PO PRN (14:58)
[2024-07-22 16:26] LABS: Basophils # (auto) 0 10 ^3/uL (0-0.2); Basophils % (auto) 0.5 % (0.0-2.0); Eosinophils # (auto) 0.2 10 ^3/uL (0-0.8); Eosinophils % (auto) 2.5 % (0.0-7.0); Hemoglobin 12.6 g/dL (13.5-17.5); Lymphocytes # (auto) 0.5 10 ^3/uL (0.4-5.4); Lymphocytes % (auto) 5.2 % (10.0-50.0); Mean Corpuscular Hemoglobin 32.8 pg (28.0-32.0); Mean Corpuscular Volume 96.6 fL (80.0-100.0); Monocytes # (auto) 0.8 10 ^3/uL (0-1.3); Monocytes % (auto) 8.2 % (0.0-12.0); Neutrophils % (auto) 83.6 % (37.0-80.0); Nucleated Red Blood Cells % 0.1 %; Platelet Count (auto) 121 10^3/uL (140-450); Red Blood Cells 3.83 10^6/uL (4.5-5.90); Red Cell Distribution Width 18.8 % (11.8-14.3); White Blood Cell 9.5 10^3/uL (4.4-10.8)
--- NOTE | 2024-07-22 16:29 | DVH ---
CHEST RADIOGRAPH Indication: ALOC Technique: Single frontal view of the chest was obtained COMPARISON: XY CHEST XRAY 1 VIEW on DOS: 07/18/24 FINDINGS: Lines and Tubes: Dual lead left-sided pacemaker. Lungs: Questionable mild interstitial pulmonary edema. Pleura: No effusion. No pneumothorax. Cardiomediastinal contours: Cardiomegaly Bones: Unremarkable IMPRESSION: 1. Questionable mild interstitial pulmonary edema.
[2024-07-22] MEDS ORDERED: ACETAMINOPHEN 500 MG TAB or CAP PO PRN (17:15)
[2024-07-22] MEDS: FUROSEMIDE 20 MG/2 ML VIAL IV ONE (17:30)
[2024-07-22 18:59] LABS: Alanine Aminotransferase 40 U/L (7-40); Anion Gap 9 (5-15); BUN/Creatinine Ratio 7.7 (10.0-20.0); Blood Urea Nitrogen 13 mg/dL (9-23); Carbon Dioxide 24 mmol/L (20-31); Chloride 104 mmol/L (98-107); Glucose 85 mg/dL (74-106); Sodium 137 mmol/L (136-145)
[2024-07-22 19:00] LABS: Albumin 3.6 g/dL (3.2-4.8)
[2024-07-22 19:01] LABS: Alkaline Phosphatase 187 U/L (46-116); Aspartate Aminotransferase 40 U/L (13-40); Bilirubin, Total 2.2 mg/dL (0.2-1.0); Calcium 8.5 mg/dL (8.7-10.4); Potassium 3.2 mmol/L (3.5-5.1); Total Protein 5.7 g/dL (5.7-8.2)
[2024-07-22] MEDS: ACETAMINOPHEN 500 MG TAB or CAP PO PRN (21:07)
--- NOTE | 2024-07-22 21:25 | DVHPN2 ---
Progress Note - Dictate Date Seen: Jul 21, 2024 Has the PT tested + for MRSA If YES, has PT been informed?: No Medical Necessity Reason Pt with a Central, PICC or Fol: No Subjective The patient is currently being evaluated and treated acute abdominal pains, Jaundice, elevated liver enzymes and acute kidney injury * Symptomatic for nausea and mild worsening of jaundice * Serum total bilirubin values mildly rising 2 mg/dL while liver enzymes Have been improving except for alkaline phosphatase * Consider giving MRCP. Case is discussed with Dr. Luiz Hamilton Patient may require cardiac clearance prior to MRI * Patient is referred to Dr. Luiz Miller Gastroenterology and Dr. Serge Marion infectious disease Overnight events are reviewed through medical chart and case discussion with patient's assigned RN while making rounds on patient on the day of service vital signs Vital Sign Date Time Temp Pulse Resp B/P (MAP) Pulse Ox O2 Delivery O2 Flow Rate FiO2 07/22/24 20:00 75 Room Air* 0 21 07/22/24 17:30 119/69 07/22/24 16:50 100.1 20 92 100.1 Total Intake and Output 07/21/24 07/21/24 07/22/24 15:00 23:00 07:00 Intake Total 100 ml 540 ml 600 ml Output Total 825 ml Balance 100 ml 540 ml -225 ml medications Current Medications Medications Dose Ordered Sig/Anna Route Start Time Stop Time Status Last Admin Dose Admin Sodium Chloride 10 ml Q8HR IV 07/18/24 22:00 07/22/24 13:23 10 ML Docusate Sodium 100 mg BIDPRN PRN PO 07/18/24 21:45 Nitroglycerin 0.4 mg Q5MINP PRN SL 07/18/24 21:45 Tamsulosin HCl 0.4 mg DAILY PO 07/19/24 10:00 07/22/24 10:30 0.4 MG Aspirin 81 mg DAILY PO 07/19/24 10:00 07/20/24 10:13 81 MG Carvedilol 12.5 mg BID PO 07/18/24 22:00 07/22/24 10:31 12.5 MG EZETIMIBE 10 mg DAILY@LUNCH PO 07/19/24 12:00 07/22/24 11:33 10 MG Levothyroxine Sodium 100 mcg QAM PO 07/19/24 07:00 07/22/24 06:27 100 MCG Sotalol HCl 80 mg BID PO 07/18/24 22:00 07/22/24 10:30 80 MG Ticagrelor 90 mg BID PO 07/18/24 22:00 07/22/24 10:29 90 MG Ondansetron HCl 4 mg Q6HP PRN IV 07/18/24 22:15 07/22/24 17:47 4 MG Tamsulosin HCl 0.4 mg QPM PO 07/19/24 18:00 07/22/24 17:29 0.4 MG Finasteride 5 mg QPM PO 07/19/24 18:00 07/22/24 17:29 5 MG Morphine Sulfate 2 mg Q1H PRN SC 07/18/24 22:30 Belladonna Alkaloids/ Phenobarbital 5 ml Q8HP PRN PO 07/18/24 22:30 Pantoprazole Sodium 40 mg DAILY IV 07/19/24 10:00 07/22/24 10:29 40 MG Sucralfate 1 gm QIDACHS PO 07/19/24 07:00 07/22/24 17:29 1 GM Magnesium Sulfate/ Dextrose 100 ml @ 100 mls/hr Q1HR IV 07/20/24 22:00 Hold Sodium Phosphate 1 tab BID PO 07/20/24 23:30 07/23/24 23:30 07/22/24 10:30 1 TAB Piperacillin Sod/ Tazobactam Sod 50 ml @ 12.5 mls/hr Q6HR IV 07/22/24 17:00 07/22/24 17:29 12.5 MLS/HR Acetaminophen 500 mg Q6HP PRN PO 07/22/24 17:15 objective Physical Exam General appearance: Well-developed, tall obese,elderly white male in discomfort Awake alert oriented x3 no respiratory distress Head: Normocephalic nontraumatic Eyes: EOMI, JOIE, sclera tinge icteric, conjunctive-pale ENT: No congestion, NSL bilateral symmetrical, oral mucosa dry Neck: Supple, carotid upstroke +2, trachea midline, JVD-3 cm, C spine- Full ROM No thyroid or lymph node , no use of sternomastoid muscle Chest: Bilateral symmetrical expansions, No costochondral tenderness Lungs: clear breath sounds all over except reduced at bases CVS: PMI- 1.5 cm medial to L MCL in fifth ICS , S1-S2 NSR no S3 GI: Abdomen soft, obese, bowel sounds normoactive RUQ tenderness-present, no rebound tenderness No hepatosplenomegaly, no mass no hernia , : No CVA tenderness, no bladder mass palpable, genitalia-NE SKIN: Turgor normal, color pink, no rash, no icterus, No varicosity, no ulcers or wounds EXTs: No edema, color pink, no rash, no ecchymosis distal pulses +2 capillary refill <2 seconds, No open wounds JOINTS; full range of motion BACK: No apparent lumbosacral spinal muscle tenderness, LYMPH NODES: No cervical, axillary or inguinal lymph nodes Neuro: Awake alert oriented 4, coherent, all cognitives- intact No pronator drift, no focal motor/sensory deficit, DTR + PSYCH: No new focal finding laboratory and microbiology Laboratory Tests 07/22/24 17:55 07/22/24 15:51 Test 07/22/24 17:55 Range/Units Serum Glucose 85 74-106 mg/dL Problem List 1. Acute RUQ/epigastric abdominal pains a. Suspect hepatobiliary tract sludge b. Rule out choledocholithiasis 2. Leukocytosis From 1. Abdominal pains-etiology unclear 3. Elevated troponins a. Status post recent ablation therapy b. Possible Acute non STEMI 3. Coronary artery disease-status post CABG and PTCA 4. Fairly well-controlled hypertension 5. Hypercholesterolemia 6. Acute kidney injury on CKD From A intravascular volume depletion B. Inadvertent effect of diuretics 2' Diagnosis/Comorbidities Prostatic hyperplasia Assessment/Plan Prognosis fair to guarded Dietary Evaluation Review Is there a minimum of two crit: No Plan discussed with: Patient Total Time (mins): 45 Primary Diagnosis 1. Acute epigastric abdominal pains 2. Acute non STEMI Admitting Diagnosis: 1. Acute epigastric abdominal pains 2. Acute non STEMI 3. Coronary artery disease-status post CABG and PTCA 4. Fairly well-controlled hypertension 5. Hypercholesterolemia 6. Acute kidney injury on CKD 2' Diagnosis/Comorbidities Prostatic hyperplasia Assessment/Plan Medical decision making: Acute abdominal pains, hypotension, mild icterus and elevated liver functions Accompanied by leukocytosis.................................................. Improving a. Suspect hepatobiliary sludge b. Rule out choledocholithiasis Present at time of admission: Yes Status: Acute Problem specific AP: * Noted improvement in severe RUQ/epigastric abdominal pains and jaundice * Patient remains hemodynamically stable afebrile * Leukocytosis improved to 10.[address] of 17K as the time of admission * Liver enzymes AST/ALT are improving-total bilirubin slightly worse at 2 mg/dL * Received ultrasound of abdomen unremarkable for hepatobiliary sludge, choledocholithiasis. Other etiology cause of jaundice suggest infectious vs hemolysis be explored. Order reticulocyte count haptoglobin and LDH As well as hepatitis panel * CT abdomen pelvis did not show acute inflammatory condition affecting internal organs * Replace Cefepime with help of Zosyn Elevated troponins a. Rule out Acute non STEMI ........................................... Clinically stable Present at time of admission: Yes Status: Acute Problem specific AP: * Patient remains hemodynamically stable * Seen by Dr. Luiz Hamilton * Recommends 2D echo exam * Continued on antiplatelet agents Acute kidney injury on CKD..................................................... Improving From A intravascular volume depletion B. Inadvertent effect of Dyazide C. Chronic hypertensive kidney disease Present at time of admission: Yes Status: Acute Problem specific AP: * Etiology causes-predominantly from state of hypovolemia, inadvertent effect of Dyazide * Electrolyte panels reflective hypovolemic hyperchloremia * Currently on hypotonic saline infusion * Diuretics like Dyazide has been held * Serum creatinine value improved to 1.49 mg/dL as compared to 1.72 mg/dL * We will closely monitor patient's renal functions * Avoid nephrotoxic agents Fairly well-controlled hypertension Hypercholesterolemia Present at time of admission: No Status: Chronic Problem specific AP: * Will cautiously continue antihypertensive medication and low-salt * Will continue patient on Lipitor and low-cholesterol diet 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 RS -obesity hypoventilation and hypoxia, pulmonary embolism, sudden b.CVS-cardiac arrhythmia, embolic events c. GI-GE reflux d. Endocrine-diabetes and comorbidities from diabetes e Neuro-embolic CVA, lifelong disability [id number] susceptibility for Covid infection and comorbidities Recommended patient to follow a. daily weight, b. ADA 1800-calorie diet-40% calories from breakfast 30% calories from lunch and dinner each, avoid carbonated soda c. Recommended aerobic exercises like walking 1-5 miles per day, riding on a stationary bike for 1-2 hours Patient education: * Updated depletion about his current condition treatment plans and prognosis * All his questions concerns were satisfactorily addressed Treatment plans as of today Continue hospital stay at telemetry bed Replace Cefepime with help of Zosyn Monitor CBC CMP Order hepatitis Refer to Dr. Luiz Miller gastroenterology-case discussed with him Refer to Dr. Serge marion, infectious Disease Reviewed the results of Ultrasound CT of abdomen with patient Continue Neutra-Phos FIO2 2 L via nasal cannula NTG 0.4 mg sublingual Q 5" x 3 angina Morphine sulfate 2 mg slow IV push -unstable angina Reconcile home meds Await for 2D echo exam Education on obesity management VTE precautions Update patient The patient is well informed by me about 1. Clinical impression, treatment plans, side effects of medications, course of the disease and guarded prognosis 2. All patient's question/ concerns raised by patient are satisfactorily addressed by me Prognosis Fair to guarded Dietary Evaluation Review Recommendations by RD: Decrease Calorie Intake Comments: Recommended intentional weight loss of 50 lbs through Low-carb low calorie 1800-calorie diet and aerobic exercises as tolerated a. RS -obesity hypoventilation and hypoxia, pulmonary embolism, sudden b.CVS-cardiac arrhythmia, embolic events c. GI-GE reflux d. Endocrine-diabetes and comorbidities from diabetes e Neuro-embolic CVA, lifelong disability [id number] susceptibility for Covid infection and comorbidities Expected Outcomes/Goals: Help avoiding comorbidities due to obesity Is there a minimum of two crit: No Plan discussed with: Patient Total Time (mins): 45 PAM MARION MD Jul 22, 2024 21:25
--- NOTE | 2024-07-22 21:47 | DVHPN2 ---
Progress Note - Dictate Date Seen: Jul 22, 2024 Has the PT tested + for MRSA If YES, has PT been informed?: No Medical Necessity Reason Pt with a Central, PICC or Fol: No Medical Necessity Reason Eval of Febrile illness, RUQ abdominal pains and jaundice IV antibiotics Subjective The patient is currently being evaluated and treated acute abdominal pains, Jaundice, elevated liver enzymes and acute kidney injury * Symptomatic for hyperpyrexia (T-max 102 F), delirium nausea and mild worsening of jaundice * Serum total bilirubin values mildly rising 2.4 mg/dL while liver enzymes AST/ALT have improved to the normal baseline except for alkaline phosphatase * Case is discussed with Dr. Serge Marion. consensus is to order MRCP * Patient may require cardiac clearance prior to MRI Overnight events are reviewed through medical chart and case discussion with patient's assigned RN while making rounds on patient on the day of service vital signs Vital Sign Date Time Temp Pulse Resp B/P (MAP) Pulse Ox O2 Delivery O2 Flow Rate FiO2 07/22/24 20:00 75 Room Air* 0 21 07/22/24 17:30 119/69 07/22/24 16:50 100.1 20 92 100.1 Total Intake and Output 07/21/24 07/21/24 07/22/24 15:00 23:00 07:00 Intake Total 100 ml 540 ml 600 ml Output Total 825 ml Balance 100 ml 540 ml -225 ml medications Current Medications Medications Dose Ordered Sig/Anna Route Start Time Stop Time Status Last Admin Dose Admin Sodium Chloride 10 ml Q8HR IV 07/18/24 22:00 07/22/24 13:23 10 ML Docusate Sodium 100 mg BIDPRN PRN PO 07/18/24 21:45 Nitroglycerin 0.4 mg Q5MINP PRN SL 07/18/24 21:45 Tamsulosin HCl 0.4 mg DAILY PO 07/19/24 10:00 07/22/24 10:30 0.4 MG Aspirin 81 mg DAILY PO 07/19/24 10:00 07/20/24 10:13 81 MG Carvedilol 12.5 mg BID PO 07/18/24 22:00 07/22/24 10:31 12.5 MG EZETIMIBE 10 mg DAILY@LUNCH PO 07/19/24 12:00 07/22/24 11:33 10 MG Levothyroxine Sodium 100 mcg QAM PO 07/19/24 07:00 07/22/24 06:27 100 MCG Sotalol HCl 80 mg BID PO 07/18/24 22:00 07/22/24 10:30 80 MG Ticagrelor 90 mg BID PO 07/18/24 22:00 07/22/24 10:29 90 MG Ondansetron HCl 4 mg Q6HP PRN IV 07/18/24 22:15 07/22/24 17:47 4 MG Tamsulosin HCl 0.4 mg QPM PO 07/19/24 18:00 07/22/24 17:29 0.4 MG Finasteride 5 mg QPM PO 07/19/24 18:00 07/22/24 17:29 5 MG Morphine Sulfate 2 mg Q1H PRN SC 07/18/24 22:30 Belladonna Alkaloids/ Phenobarbital 5 ml Q8HP PRN PO 07/18/24 22:30 Pantoprazole Sodium 40 mg DAILY IV 07/19/24 10:00 07/22/24 10:29 40 MG Sucralfate 1 gm QIDACHS PO 07/19/24 07:00 07/22/24 17:29 1 GM Magnesium Sulfate/ Dextrose 100 ml @ 100 mls/hr Q1HR IV 07/20/24 22:00 Hold Sodium Phosphate 1 tab BID PO 07/20/24 23:30 07/23/24 23:30 07/22/24 10:30 1 TAB Piperacillin Sod/ Tazobactam Sod 50 ml @ 12.5 mls/hr Q6HR IV 07/22/24 17:00 07/22/24 17:29 12.5 MLS/HR Acetaminophen 500 mg Q6HP PRN PO 07/22/24 17:15 objective Physical Exam General appearance: Well-developed, tall obese,elderly white male in discomfort Awake alert oriented x3 no respiratory distress Head: Normocephalic nontraumatic Eyes: EOMI, JOIE, sclera tinge icteric, conjunctive-pale ENT: No congestion, NSL bilateral symmetrical, oral mucosa dry Neck: Supple, carotid upstroke +2, trachea midline, JVD-3 cm, C spine- Full ROM No thyroid or lymph node , no use of sternomastoid muscle Chest: Bilateral symmetrical expansions, No costochondral tenderness Lungs: clear breath sounds all over except reduced at bases CVS: PMI- 1.5 cm medial to L MCL in fifth ICS , S1-S2 NSR no S3 GI: Abdomen soft, obese, bowel sounds normoactive RUQ tenderness-present, no rebound tenderness No hepatosplenomegaly, no mass no hernia , : No CVA tenderness, no bladder mass palpable, genitalia-NE SKIN: Turgor normal, color pink, no rash, no icterus, No varicosity, no ulcers or wounds EXTs: No edema, color pink, no rash, no ecchymosis distal pulses +2 capillary refill <2 seconds, No open wounds JOINTS; full range of motion BACK: No apparent lumbosacral spinal muscle tenderness, LYMPH NODES: No cervical, axillary or inguinal lymph nodes Neuro: Awake alert oriented 4, coherent, all cognitives- intact No pronator drift, no focal motor/sensory deficit, DTR + PSYCH: No new focal finding laboratory and microbiology Laboratory Tests 07/22/24 17:55 07/22/24 15:51 Test 07/22/24 17:55 Range/Units Serum Glucose 85 74-106 mg/dL Problem List 1. Acute RUQ/epigastric abdominal pains recommended by hyperpyrexia and jaundice a. Suspect hepatobiliary tract sludge b. Rule out choledocholithiasis 2. Hemolytic jaundice 3. Elevated troponins a. Status post recent ablation therapy b. Possible Acute non STEMI 3. Coronary artery disease-status post CABG and PTCA 4. Fairly well-controlled hypertension 5. Hypercholesterolemia 6. Acute kidney injury on CKD From A intravascular volume depletion B. Inadvertent effect of diuretics 2' Diagnosis/Comorbidities Assessment/Plan Medical decision making: Acute abdominal pains accompanied by hyperpyrexia, jaundice and elevated liver functions and delirium........................................................................ ........................ Improving a. Suspect hepatobiliary sludge b. Rule out choledocholithiasis Present at time of admission: Yes Status: Acute Problem specific AP: * Noted new development of hyperpyrexia with residual RUQ/epigastric abdominal pains and mild worsening of jaundice. T-max was 102 F with delirium Etiologic cause of delirium was due to metabolic encephalopathy * His general condition remains hemodynamically stable * Leukocytosis improved to 9.5 K with neutrophilia (80%)-suggestive of acute inflammatory condition * Liver enzymes AST/ALT have improved to the baseline while noted High value of alkaline phosphatase and bilirubin at 2 mg/dL Case is discussed with Dr. Serge marion, infectious Disease, Dr. Luiz Miller gastroenterology Consensus is to order MRCP * High value of reticulocyte points at hemolytic jaundice-refer patient to Dr. Louie Connell * Hepatitis panels are pending * CT abdomen pelvis did not show acute inflammatory condition affecting internal organs * Revised dose of IV Zosyn Elevated troponins a. Rule out Acute non STEMI ........................................... Clinically stable Present at time of admission: Yes Status: Acute Problem specific AP: * Patient remains hemodynamically stable * Seen by Dr. Luiz Hamilton * Recommends 2D echo exam * Continued on antiplatelet agents Acute kidney injury on CKD..................................................... Worse today From A intravascular volume depletion B. Inadvertent effect of Dyazide C. Chronic hypertensive kidney disease Present at time of admission: Yes Status: Acute Problem specific AP: * Etiology causes-predominantly from state of hypovolemia, inadvertent effect of Dyazide * Electrolyte panels reflective hypovolemic hyperchloremia * Currently on hypotonic saline infusion * Diuretics like Dyazide has been held * Serum creatinine value improved to 1.68 mg/dL as compared to 1.5 mg/dL * We will closely monitor patient's renal functions * Avoid nephrotoxic agents Fairly well-controlled hypertension Hypercholesterolemia Present at time of admission: No Status: Chronic Problem specific AP: * Will cautiously continue antihypertensive medication and low-salt * Will continue patient on Lipitor and low-cholesterol diet 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 RS -obesity hypoventilation and hypoxia, pulmonary embolism, sudden b.CVS-cardiac arrhythmia, embolic events c. GI-GE reflux d. Endocrine-diabetes and comorbidities from diabetes e Neuro-embolic CVA, lifelong disability [id number] susceptibility for Covid infection and comorbidities Recommended patient to follow a. daily weight, b. ADA 1800-calorie diet-40% calories from breakfast 30% calories from lunch and dinner each, avoid carbonated soda c. Recommended aerobic exercises like walking 1-5 miles per day, riding on a stationary bike for 1-2 hours Patient education: * Updated depletion about his current condition treatment plans and prognosis * All his questions concerns were satisfactorily addressed Treatment plans as of today Continue hospital stay at telemetry bed Revised dose of IV Zosyn Order blood cultures Order ammonia level and serum lactate Monitor CBC CMP this evening Await for hepatitis panel results Refer patient to Dr. louie connell Refer to Dr. Luiz Miller gastroenterology-case discussed with him Refer to Dr. Serge marion, infectious Disease-case discussed with him Reviewed the results of Ultrasound CT of abdomen with patient Continue Neutra-Phos FIO2 2 L via nasal cannula NTG 0.4 mg sublingual Q 5" x 3 angina Morphine sulfate 2 mg slow IV push -unstable angina Await for 2D echo exam Education on obesity management VTE precautions Update patient The patient is well informed by me about 1. Clinical impression, treatment plans, side effects of medications, course of the disease and guarded prognosis 2. All patient's question/ concerns raised by patient are satisfactorily addressed by me Prognosis Fair to guarded Dietary Evaluation Review Recommendations by RD: Decrease Calorie Intake Comments: Recommended intentional weight loss of 50 lbs through Low-carb low calorie 1800-calorie diet and aerobic exercises as tolerated a. RS -obesity hypoventilation and hypoxia, pulmonary embolism, sudden b.CVS-cardiac arrhythmia, embolic events c. GI-GE reflux d. Endocrine-diabetes and comorbidities from diabetes e Neuro-embolic CVA, lifelong disability [id number] susceptibility for Covid infection and comorbidities Expected Outcomes/Goals: Help avoiding comorbidities due to obesity Is there a minimum of two crit: No Plan discussed with: Patient Total Time (mins): 45 PAM MARION MD Jul 22, 2024 21:47
--- NOTE | 2024-07-22 22:41 | DVHINCON2 ---
Date of service: Jul 22, [address] arita Reason for Consultation Abdominal pain abnormal liver enzymes status post cholecystectomy History of Present Illness Old male with a history of hypertension hypercholesteremia coronary artery disease admitted with complaints admitted with complaints of abdominal pain in the epigastric area which was radiating to the back. Pain was very severe and radiated to the back No nausea or vomiting hematemesis or lower GI symptoms Has got a fever now and his liver enzymes was found to be increased Patient is on Brilinta Past Medical History Gallbladder disease status post cholecystectomy Coronary artery disease status post bypass graft and multiple stents Hypertension Pacemaker Past Surgical History Cholecystectomy Family History: Cardiovascular disease G8 MOTHER G8 FATHER Family History Noncontributory Social History Denies smoking or drinking Allergies: Coded Allergies: Amlodipine (Verified Allergy, Severe, 09/25/17) Iodine (Verified Allergy, Severe, 09/25/17) Latex (Verified Allergy, Severe, 09/25/17) Home Meds Reported Medications Ibuprofen (Ibuprofen) 800 Mg Tab, 800 MG PO BIDP PRN for MILD PAIN OR TEMP>100.4, MG 09/25/17 Hyoscyamine Sulfate (Hyoscyamine Sulfate) 0.375 Mg Tab, 0.375 MG PO BIDPRN for 30 Days, MG 09/25/17 Aspirin (Aspir-Low) 81 Mg Tab, 81 MG PO DAILY for 30 Days, MG 09/25/17 Ticagrelor Base (BRILINTA) 90 Mg Tab, 90 MG PO BID, TAB 09/25/17 Carvedilol (Carvedilol) 12.5 Mg Tab, 1 TAB PO BID, #180 TAB 1 Refill 09/25/17 Triamterene & Hydrochlorothiaz (Maxzide-25) Tab, 1 TAB PO DAILY, #30 TAB 5 Refills 09/25/17 Dutasteride (Avodart) 0.5 Mg Cap, 1 CAP PO DAILY, #30 CAP 5 Refills 09/25/17 Sotalol Hcl (Sotalol Hcl) 80 Mg Tab, 1 TAB PO BID, #60 TAB 5 Refills 09/25/17 Potassium Chloride (Klor-Con M10) 10 Meq Tab, 1 TAB PO DAILY, #30 TAB 5 Refills 09/25/17 Isosorbide Mononitrate (Isosorbide Mononitrate Er) 30 Mg Tab, 30 MG PO DAILY for 30 Days, MG 09/25/17 Levothyroxine Sodium (Levothyroxine Sodium) 100 Mcg Tab, 100 MCG PO QAM for 30 Days, MCG 09/25/17 Allopurinol (Allopurinol) 300 Mg Tab, 300 MG PO DAILY for 30 Days, MG 09/25/17 Ezetimibe (Zetia) 10 Mg Tab, 1 TAB PO DAILY, #30 TAB 5 Refills 09/25/17 Atorvastatin Calcium (ATORVASTATIN CALCIUM) 80 Mg Tab, 80 MG PO HS, TAB 09/25/17 Current Medications Current Medications Medications (Trade) Dose Ordered Sig/Anna Route PRN Reason Start Time Stop Time Status Last Admin Piperacillin Sod/ Tazobactam Sod 50 ml @ 12.5 mls/hr Q12HR IV 07/22/24 10:00 07/22/24 16:51 DC 07/22/24 10:29 Piperacillin Sod/ Tazobactam Sod 50 ml @ 12.5 mls/hr Q6HR IV 07/22/24 17:00 07/22/24 17:29 Acetaminophen (Tylenol Tablet) 500 mg Q4HP PRN PO MILD PAIN (1-3 PAIN SCALE) 07/22/24 17:15 07/22/24 17:07 DC Acetaminophen (Tylenol Tablet) 500 mg Q6HP PRN PO MILD PAIN (1-3 PAIN SCALE) 07/22/24 17:15 07/22/24 21:07 Review of Systems Noncontributory Vital Signs Vital Signs Date Time Temp Pulse Resp B/P (MAP) Pulse Ox O2 Delivery O2 Flow Rate FiO2 07/22/24 21:09 75 108/50 07/22/24 21:07 102.9 07/22/24 21:00 20 97 07/22/24 20:00 Room Air* 0 21 Physical Exam Poorly built and nourished male in no acute distress but uncomfortable from the pain Fever with a temperature of 102 HEENT examination no pallor no icterus Clear lungs Cardiovascular unremarkable Abdomen is soft mild tenderness in the epigastrium no rigidity no guarding no masses bowel sounds normal Extremities no edema Grossly intact neurologically Labs/Diagnostic Data Labs Test 07/22/24 17:55 07/22/24 15:51 07/22/24 07:35 07/20/24 06:35 Range/Units Sodium Level 137 136-145 mmol/L Potassium Level 3.2 L 3.5-5.1 mmol/L Chloride Level 104 98-107 mmol/L Carbon Dioxide Level 24 20-31 mmol/L Anion Gap 9 5-15 Blood Urea Nitrogen 13 9-23 mg/dL Creatinine 1.68 H 0.700-1.30 mg/dL Glomerular Filtration Rate Calc 42 >90 mL/min BUN/Creatinine Ratio 7.7 L 10.0-20.0 Serum Glucose 85 74-106 mg/dL Calcium Level 8.5 L 8.7-10.4 mg/dL Total Bilirubin 2.2 H 0.2-1.0 mg/dL Aspartate Amino Transferase (AST) 40 13-40 U/L Alanine Aminotransferase (ALT) 40 7-40 U/L Alkaline Phosphatase 187 H 46-116 U/L Ammonia 18 11-32 umol/L Total Protein 5.7 5.7-8.2 g/dL Albumin 3.6 3.2-4.8 g/dL White Blood Count 9.5 4.4-10.8 10^3/uL Red Blood Count 3.83 L 4.5-5.90 10^6/uL Hemoglobin 12.6 L 13.5-17.5 g/dL Hematocrit 37.0 L 41.0-53.0 % Mean Corpuscular Volume 96.6 80.0-100.0 fL Mean Corpuscular Hemoglobin 32.8 H 28.0-32.0 pg Mean Corpuscular Hemoglobin Concent 34.0 32.0-36.0 g/dL Red Cell Distribution Width 18.8 H 11.8-14.3 % Platelet Count 121 L 140-450 10^3/uL Mean Platelet Volume 10.0 6.9-10.8 fL Neutrophils (%) (Auto) 83.6 H 37.0-80.0 % Lymphocytes (%) (Auto) 5.2 L 10.0-50.0 % Monocytes (%) (Auto) 8.2 0.0-12.0 % Eosinophils (%) (Auto) 2.5 0.0-7.0 % Basophils (%) (Auto) 0.5 0.0-2.0 % Neutrophils # (Auto) 8.0 1.6-8.6 10 ^3/uL Lymphocytes # (Auto) 0.5 0.4-5.4 10 ^3/uL Monocytes # (Auto) 0.8 0-1.3 10 ^3/uL Eosinophils # (Auto) 0.2 0-0.8 10 ^3/uL Basophils # (Auto) 0 0-0.2 10 ^3/uL Nucleated Red Blood Cells 0.1 % Reticulocyte Count (auto) 2.24 H 0.5-1.5 % Phosphorus Level 2.2 L 2.4-5.1 mg/dL Magnesium Level 1.9 1.6-2.6 mg/dL Triglycerides Level 115 < 150 mg/dL Cholesterol Level 133 < 200 mg/dL LDL Cholesterol 59 < 100 mg/dL HDL Cholesterol 50 40-59 mg/dL Vitamin B12 Level 373 211-911 pg/mL Folic Acid 18.07 >5.38 ng/mL Test 07/19/24 03:00 07/18/24 21:30 07/18/24 18:20 07/18/24 17:39 Range/Units Troponin I High Sensitivity 56 *H </=54 ng/L Thyroid Stimulating Hormone (TSH) 0.08 L 0.55-4.78 uIU/mL Plasma/Serum Blood Alcohol 3.4 <10 mg/dL Urine Color Yellow Yellow Urine Clarity Clear Clear Urine pH 5.5 5.0-9.0 Urine Specific [place] 1.023 1.001-1.035 Urine Protein Trace H Negative Urine Ketones Negative Negative Urine Blood Negative Negative /uL Urine Nitrite Negative Negative Urine Bilirubin Negative Negative Urine Urobilinogen 2 H Negative mg/dL Urine Leukocyte Esterase Negative Negative /uL Urine RBC 1 0 - 3 /hpf Urine WBC None seen 0 - 3 /hpf Urine Squamous Epithelial Cells None seen <5 /hpf Urine Bacteria None seen None Seen /hpf Urine Hyaline Casts Few 0 - 2 /lpf Urine Glucose 4+ H Normal mg/dL Urine Opiates Screen Neg NEGATIVE Urine Fentanyl Screen Neg NEGATIVE Urine Barbiturates Screen Neg NEGATIVE Urine Phencyclidine Screen Neg NEGATIVE Urine Amphetamines Screen Neg NEGATIVE Urine Benzodiazepines Screen Neg NEGATIVE Urine Cocaine Screen Neg NEGATIVE Urine Cannabinoids Screen Neg NEGATIVE B-Type Natriuretic Peptide 150.33 0-100 pg/mL Lipase 37 12-53 U/L Assessment 73-year-old male with a history of hypertension hypercholesterolemia coronary artery disease status post multiple stents came with severe abdominal pain which was spastic and colicky referring radiate to the back patient has history of cholecystectomy in the past some nausea and anorexia but no hematemesis melena lower GI symptoms Examination mild tenderness in the epigastrium no rigidity no guarding Alk phos is increased bilirubin is also increased liver enzymes like AST ALT are normal lipase is normal at 37 Hemoglobin normal WBCs normal Clinical impression Abdominal pain status post cholecystectomy with abnormal liver enzymes especially alkaline phosphatase and bilirubin with normal lipase and transaminases Possibility choledocholithiasis with cholangitis to be strongly considered especially with fever and abnormal liver enzymes seen this post cholecystectomy patient His pain unfortunately is unremarkable but done without any contrast oral or IV Plan/Recommendation MRI and MRCP as soon as possible Liver panel and lipase Depending upon the MRI MRCP results will probably need to be referred to a referral center soon for possible ERCP and intervention of the biliary tree Thank you Dr. Miller Plan discussed with: Patient STEVEN MILLER MD Jul 22, 2024 22:41
--- NOTE | 2024-07-22 23:44 | DVHINCON2 ---
Date of service: Jul 22, 2024 Family History: Cardiovascular disease G8 MOTHER G8 FATHER Allergies: Coded Allergies: Amlodipine (Verified Allergy, Severe, 09/25/17) Iodine (Verified Allergy, Severe, 09/25/17) Latex (Verified Allergy, Severe, 09/25/17) Home Meds Reported Medications Ibuprofen (Ibuprofen) 800 Mg Tab, 800 MG PO BIDP PRN for MILD PAIN OR TEMP>100.4, MG 09/25/17 Hyoscyamine Sulfate (Hyoscyamine Sulfate) 0.375 Mg Tab, 0.375 MG PO BIDPRN for 30 Days, MG 09/25/17 Aspirin (Aspir-Low) 81 Mg Tab, 81 MG PO DAILY for 30 Days, MG 09/25/17 Ticagrelor Base (BRILINTA) 90 Mg Tab, 90 MG PO BID, TAB 09/25/17 Carvedilol (Carvedilol) 12.5 Mg Tab, 1 TAB PO BID, #180 TAB 1 Refill 09/25/17 Triamterene & Hydrochlorothiaz (Maxzide-25) Tab, 1 TAB PO DAILY, #30 TAB 5 Refills 09/25/17 Dutasteride (Avodart) 0.5 Mg Cap, 1 CAP PO DAILY, #30 CAP 5 Refills 09/25/17 Sotalol Hcl (Sotalol Hcl) 80 Mg Tab, 1 TAB PO BID, #60 TAB 5 Refills 09/25/17 Potassium Chloride (Klor-Con M10) 10 Meq Tab, 1 TAB PO DAILY, #30 TAB 5 Refills 09/25/17 Isosorbide Mononitrate (Isosorbide Mononitrate Er) 30 Mg Tab, 30 MG PO DAILY for 30 Days, MG 09/25/17 Levothyroxine Sodium (Levothyroxine Sodium) 100 Mcg Tab, 100 MCG PO QAM for 30 Days, MCG 09/25/17 Allopurinol (Allopurinol) 300 Mg Tab, 300 MG PO DAILY for 30 Days, MG 09/25/17 Ezetimibe (Zetia) 10 Mg Tab, 1 TAB PO DAILY, #30 TAB 5 Refills 09/25/17 Atorvastatin Calcium (ATORVASTATIN CALCIUM) 80 Mg Tab, 80 MG PO HS, TAB 09/25/17 Current Medications Current Medications Medications (Trade) Dose Ordered Sig/Anna Route PRN Reason Start Time Stop Time Status Last Admin Piperacillin Sod/ Tazobactam Sod 50 ml @ 12.5 mls/hr Q12HR IV 07/22/24 10:00 07/22/24 16:51 DC 07/22/24 10:29 Piperacillin Sod/ Tazobactam Sod 50 ml @ 12.5 mls/hr Q6HR IV 07/22/24 17:00 07/22/24 17:29 Acetaminophen (Tylenol Tablet) 500 mg Q4HP PRN PO MILD PAIN (1-3 PAIN SCALE) 07/22/24 17:15 07/22/24 17:07 DC Acetaminophen (Tylenol Tablet) 500 mg Q6HP PRN PO MILD PAIN (1-3 PAIN SCALE) 07/22/24 17:15 07/22/24 21:07 Vital Signs Vital Signs Date Time Temp Pulse Resp B/P (MAP) Pulse Ox O2 Delivery O2 Flow Rate FiO2 07/22/24 22:07 98.9 07/22/24 21:09 75 108/50 07/22/24 21:00 20 97 07/22/24 20:00 Room Air* 0 21 Labs/Diagnostic Data Labs Test 07/22/24 17:55 07/22/24 15:51 07/22/24 07:35 07/20/24 06:35 Range/Units Sodium Level 137 136-145 mmol/L Potassium Level 3.2 L 3.5-5.1 mmol/L Chloride Level 104 98-107 mmol/L Carbon Dioxide Level 24 20-31 mmol/L Anion Gap 9 5-15 Blood Urea Nitrogen 13 9-23 mg/dL Creatinine 1.68 H 0.700-1.30 mg/dL Glomerular Filtration Rate Calc 42 >90 mL/min BUN/Creatinine Ratio 7.7 L 10.0-20.0 Serum Glucose 85 74-106 mg/dL Calcium Level 8.5 L 8.7-10.4 mg/dL Total Bilirubin 2.2 H 0.2-1.0 mg/dL Aspartate Amino Transferase (AST) 40 13-40 U/L Alanine Aminotransferase (ALT) 40 7-40 U/L Alkaline Phosphatase 187 H 46-116 U/L Ammonia 18 11-32 umol/L Total Protein 5.7 5.7-8.2 g/dL Albumin 3.6 3.2-4.8 g/dL White Blood Count 9.5 4.4-10.8 10^3/uL Red Blood Count 3.83 L 4.5-5.90 10^6/uL Hemoglobin 12.6 L 13.5-17.5 g/dL Hematocrit 37.0 L 41.0-53.0 % Mean Corpuscular Volume 96.6 80.0-100.0 fL Mean Corpuscular Hemoglobin 32.8 H 28.0-32.0 pg Mean Corpuscular Hemoglobin Concent 34.0 32.0-36.0 g/dL Red Cell Distribution Width 18.8 H 11.8-14.3 % Platelet Count 121 L 140-450 10^3/uL Mean Platelet Volume 10.0 6.9-10.8 fL Neutrophils (%) (Auto) 83.6 H 37.0-80.0 % Lymphocytes (%) (Auto) 5.2 L 10.0-50.0 % Monocytes (%) (Auto) 8.2 0.0-12.0 % Eosinophils (%) (Auto) 2.5 0.0-7.0 % Basophils (%) (Auto) 0.5 0.0-2.0 % Neutrophils # (Auto) 8.0 1.6-8.6 10 ^3/uL Lymphocytes # (Auto) 0.5 0.4-5.4 10 ^3/uL Monocytes # (Auto) 0.8 0-1.3 10 ^3/uL Eosinophils # (Auto) 0.2 0-0.8 10 ^3/uL Basophils # (Auto) 0 0-0.2 10 ^3/uL Nucleated Red Blood Cells 0.1 % Reticulocyte Count (auto) 2.24 H 0.5-1.5 % Phosphorus Level 2.2 L 2.4-5.1 mg/dL Magnesium Level 1.9 1.6-2.6 mg/dL Triglycerides Level 115 < 150 mg/dL Cholesterol Level 133 < 200 mg/dL LDL Cholesterol 59 < 100 mg/dL HDL Cholesterol 50 40-59 mg/dL Vitamin B12 Level 373 211-911 pg/mL Folic Acid 18.07 >5.38 ng/mL Test 07/19/24 03:00 07/18/24 21:30 07/18/24 18:20 07/18/24 17:39 Range/Units Troponin I High Sensitivity 56 *H </=54 ng/L Thyroid Stimulating Hormone (TSH) 0.08 L 0.55-4.78 uIU/mL Plasma/Serum Blood Alcohol 3.4 <10 mg/dL Urine Color Yellow Yellow Urine Clarity Clear Clear Urine pH 5.5 5.0-9.0 Urine Specific [place] 1.023 1.001-1.035 Urine Protein Trace H Negative Urine Ketones Negative Negative Urine Blood Negative Negative /uL Urine Nitrite Negative Negative Urine Bilirubin Negative Negative Urine Urobilinogen 2 H Negative mg/dL Urine Leukocyte Esterase Negative Negative /uL Urine RBC 1 0 - 3 /hpf Urine WBC None seen 0 - 3 /hpf Urine Squamous Epithelial Cells None seen <5 /hpf Urine Bacteria None seen None Seen /hpf Urine Hyaline Casts Few 0 - 2 /lpf Urine Glucose 4+ H Normal mg/dL Urine Opiates Screen Neg NEGATIVE Urine Fentanyl Screen Neg NEGATIVE Urine Barbiturates Screen Neg NEGATIVE Urine Phencyclidine Screen Neg NEGATIVE Urine Amphetamines Screen Neg NEGATIVE Urine Benzodiazepines Screen Neg NEGATIVE Urine Cocaine Screen Neg NEGATIVE Urine Cannabinoids Screen Neg NEGATIVE B-Type Natriuretic Peptide 150.33 0-100 pg/mL Lipase 37 12-53 U/L Problems(with codes): (1) Acute abdominal pain (2) Chest pain, rule out acute myocardial infarction (3) Chest pain with moderate risk of acute coronary syndrome Plan/Recommendation ASSESSMENT AND PLAN: ID Problem List: - Acute epigastric abdominal pain - Hyperbilirubinemia - Elevated liver enzymes - Fevers - Possible ascending cholangitis Assessment This is a 73 y.o. male with a past medical history of hypertension, hypercholesterolemia, coronary artery disease status post multiple stents and CABG, sick sinus syndrome with pacemaker and ICD, COPD, asthma, GERD, chronic kidney disease, BPH, pituitary adenoma, and gouty arthritis, who presents with acute onset of severe epigastric abdominal pain. He developed severe, colicky epigastric abdominal pain, rated 10/10, causing him to be doubled over. On evaluation in the ED, his blood pressure was 95/65, which has since improved. He denies nausea, vomiting, or heavy meals prior to symptom onset. He has not had recurrent severe abdominal pain since admission but is experiencing fevers up to 102.9F. Laboratory evaluation reveals elevated liver enzymes with AST 137 U/L, ALT 69 U/L, alkaline phosphatase 197 U/L, and total bilirubin initially 2.1 mg/dL, peaking at 24 mg/dL during admission. Imaging including abdominal CT and ultrasound were unremarkable, showing no acute intra-abdominal findings, no biliary duct dilation, and no hydronephrosis. Blood cultures were obtained and are no growth to date. Plan: - Suspect ascending cholangitis as the etiology of fevers and elevated LFTs in a post-cholecystectomy patient. continue Zosyn - Continue to monitor vital signs and trend liver enzymes. - Follow up on blood cultures. - Recommend MRCP to evaluate the biliary tract if feasible, considering pacemaker/ICD and bilateral prosthetic knee joints. - Defer any interventions, including ERCP, to GI service. Isolation Precautions: standard Assessment and plan were discussed with the patient as written above Plan is subject to change pending incorporation of new incoming information/diagnostics. Updates may be added as addendum at the bottom (OR TOP) of this note Thank you for interesting consult. We will continue to follow. Please contact us for any questions or concerns. Kaley Marion M.D. [facility] Ph: ? History: The patient's chart and medications were reviewed in detail, and the patient was seen and examined. History obtained from: patient Jesus Mcocy is a 73 y.o. male with a past medical history of hypertension, hypercholesterolemia, coronary artery disease status post multiple stents and CABG, sick sinus syndrome with pacemaker and ICD, COPD, asthma, GERD, chronic kidney disease, BPH, pituitary adenoma, and gouty arthritis, who presents with acute onset of severe epigastric abdominal pain. He developed severe, colicky epigastric abdominal pain, rated 10/10, causing him to be doubled over. On evaluation in the ED, his blood pressure was 95/65, which has since improved. He denies nausea, vomiting, or heavy meals prior to symptom onset. He has not had severe abdominal pain since admission but is experiencing fevers up to 102.9F. Review of Systems: A complete 10-system review of systems was completed and negative except as noted in the HPI or here. ROS: - CONSTITUTIONAL: Reports fever. Denies weight loss and chills. - HEENT: Denies changes in vision and hearing. - RESPIRATORY: Denies shortness of breath and cough. - CV: Denies palpitations and chest pain. - GI: Reports severe epigastric abdominal pain. Denies nausea, vomiting, and diarrhea. - : Denies dysuria and urinary frequency. - MSK: Denies myalgia and joint pain. - SKIN: Denies rash and pruritus. - NEUROLOGICAL: Denies headache and syncope. - PSYCHIATRIC: Denies recent changes in mood. Denies anxiety and depression. Past Medical History: Diagnosis Date Hypertension Hypercholesterolemia Coronary artery disease status post multiple stents and CABG Sick sinus syndrome with pacemaker and ICD COPD Asthma GERD Chronic kidney disease BPH Pituitary adenoma Gouty arthritis Past Surgical History: CABG Pacemaker/ICD placement Cholecystectomy Home Medications: Prior to Admission Medications Medication Sig aspirin 81 mg tablet Take 1 tablet by mouth daily. ibuprofen Take as needed. ticagrelor (BRILINTA) Take as prescribed. carvedilol (COREG) Take as prescribed. triamterene Take as prescribed. dutasteride Take as prescribed. potassium Take as prescribed. isosorbide Take as prescribed. levothyroxine Take as prescribed. allopurinol Take as prescribed. acetazolamide Take as prescribed. atorvastatin Take as prescribed. 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 Tobacco Use Smoking status: Never Smokeless tobacco: Never Vaping Use Vaping status: Never Used Substance and Sexual Activity Alcohol use: Denies Drug use: Denies Sexual activity: Not Currently Other Topics Concern Not on file Social History Narrative Not on file Social Determinants of Health Not on file Objective: Vital Signs on Arrival: Temp: 98.2 F (36.8 C) BP: 95/65 Pulse: 71 Resp: 16 SpO2: 97% on room air Most Recent Vital Signs: Temp: 98.6 F (37.0 C) BP: 145/58 Pulse: 71 Resp: 16 SpO2: 97% on room air Admission Weight: Weight: Not provided BMI: Not provided Physical Exam: General: NAD Neck: Supple. No masses. HEENT: PERRL. Normal lids and conjunctiva. Moist mucous membranes. Oropharynx without lesions, exudates or excessive erythema. Normal appearance of the external aspects of the nose and ears. Heart: Regular rhythm, normal rate. No murmur. No lower extremity edema. Lungs: Normal respiratory effort. Clear to auscultation bilaterally. No wheezes. No crackles. Abdomen: Mildly distended. Soft, non-tender. Normal active bowel sounds. No masses or abdominal hernia. Msk: No digital cyanosis. Normal strength and tone in all 4 limbs Skin: Warm and dry, no rashes. Neuro: Alert. No facial droop or slurred speech. Extra-ocular movements intact. Sensation intact to soft touch in all 4 limbs. Psych: Appropriate mood. Full affect. Oriented to person, place, time, and situation. Lines: Active Lines None noted Diagnostic Studies: Available diagnostic studies were reviewed personally. Significant relevant results and findings are outlined below or addressed in the Assessment and Plan above. Pertinent Labs: AST: 137 U/L ALT: 69 U/L Alkaline phosphatase: 197 U/L Total bilirubin: 2.1 mg/dL, peaked at 24 mg/dL during admission Blood cultures: No growth to date Urinalysis: Negative for nitrites and leukocyte esterase, no pyuria Urine drug screen: Negative Pertinent Imaging: Abdominal CT Scan: No acute intra-abdominal findings. Nonspecific fluid/nodular density in bilateral groins. Chest X-Ray: No acute cardiopulmonary disease. Abdominal Ultrasound: Unremarkable. No hydronephrosis. Spleen: 10.7 cm. Common bile duct: 0.9 cm, unremarkable. No intrahepatic biliary dilatation noted. Plan discussed with: Patient KALEY MARION MD Jul 22, 2024 23:44
[2024-07-22] MEDS: CYANOCOBALAMIN (B-12) 1000 MCG/1 ML VIAL SUBCUT ONE (23:59)
[2024-07-23] VITALS (10 sets, daily range): BP systolic 91–105; BP diastolic 43–66; PULSE 63–71; RESP 16–19; TEMP 98.3–101.9; O2SAT 91–97
[2024-07-23 10:42] LABS: Basophils # (auto) 0 10 ^3/uL (0-0.2); Basophils % (auto) 0.4 % (0.0-2.0); Eosinophils # (auto) 0.2 10 ^3/uL (0-0.8); Eosinophils % (auto) 2.1 % (0.0-7.0); Hematocrit 37.3 % (41.0-53.0); Hemoglobin 12.4 g/dL (13.5-17.5); Lymphocytes # (auto) 0.4 10 ^3/uL (0.4-5.4); Lymphocytes % (auto) 5.1 % (10.0-50.0); Mean Corpuscular Hemoglobin 32.1 pg (28.0-32.0); Mean Corpuscular Hgb Conc. 33.2 g/dL (32.0-36.0); Mean Corpuscular Volume 96.8 fL (80.0-100.0); Monocytes # (auto) 0.7 10 ^3/uL (0-1.3); Monocytes % (auto) 8.4 % (0.0-12.0); Neutrophils # (auto) 7.2 10 ^3/uL (1.6-8.6); Nucleated Red Blood Cells % 0.1 %; Platelet Count (auto) 127 10^3/uL (140-450); Red Blood Cells 3.86 10^6/uL (4.5-5.90); White Blood Cell 8.6 10^3/uL (4.4-10.8)
[2024-07-23 11:05] LABS: Albumin 3.5 g/dL (3.2-4.8); Anion Gap 11 (5-15); BUN/Creatinine Ratio 7.3 (10.0-20.0); Blood Urea Nitrogen 14 mg/dL (9-23); Carbon Dioxide 24 mmol/L (20-31); Chloride 101 mmol/L (98-107); Glucose 90 mg/dL (74-106); Sodium 136 mmol/L (136-145)
[2024-07-23 11:11] LABS: Alanine Aminotransferase 46 U/L (7-40); Alkaline Phosphatase 170 U/L (46-116); Aspartate Aminotransferase 54 U/L (13-40); Bilirubin, Total 2.2 mg/dL (0.2-1.0); Calcium 8.5 mg/dL (8.7-10.4)
--- NOTE | 2024-07-23 14:58 | DVHPN2 ---
Progress Note - Dictate Date Seen: Jul 23, 2024 Has the PT tested + for MRSA If YES, has PT been informed?: No Medical Necessity Reason Pt with a Central, PICC or Fol: No Subjective Patient continues to have fever and abdominal pains vital signs Vital Sign Date Time Temp Pulse Resp B/P (MAP) Pulse Ox O2 Delivery O2 Flow Rate FiO2 07/23/24 13:05 99.8 07/23/24 13:00 63 17 91/48 (62) 91 07/23/24 10:00 Room Air 0.0 07/23/24 10:00 21 Total Intake and Output 07/22/24 07/22/24 07/23/24 15:00 23:00 07:00 Intake Total 150 ml 475 ml 665 ml Balance 150 ml 475 ml 665 ml medications Current Medications Medications Dose Ordered Sig/Anna Route Start Time Stop Time Status Last Admin Dose Admin Sodium Chloride 10 ml Q8HR IV 07/18/24 22:00 07/23/24 14:17 10 ML Docusate Sodium 100 mg BIDPRN PRN PO 07/18/24 21:45 Nitroglycerin 0.4 mg Q5MINP PRN SL 07/18/24 21:45 Tamsulosin HCl 0.4 mg DAILY PO 07/19/24 10:00 07/23/24 09:53 0.4 MG Aspirin 81 mg DAILY PO 07/19/24 10:00 07/20/24 10:13 81 MG Carvedilol 12.5 mg BID PO 07/18/24 22:00 07/23/24 09:53 12.5 MG EZETIMIBE 10 mg DAILY@LUNCH PO 07/19/24 12:00 07/23/24 11:34 10 MG Levothyroxine Sodium 100 mcg QAM PO 07/19/24 07:00 07/23/24 05:19 100 MCG Sotalol HCl 80 mg BID PO 07/18/24 22:00 07/23/24 09:53 80 MG Ticagrelor 90 mg BID PO 07/18/24 22:00 07/23/24 09:53 90 MG Ondansetron HCl 4 mg Q6HP PRN IV 07/18/24 22:15 07/23/24 14:26 4 MG Tamsulosin HCl 0.4 mg QPM PO 07/19/24 18:00 07/22/24 17:29 0.4 MG Finasteride 5 mg QPM PO 07/19/24 18:00 07/22/24 17:29 5 MG Morphine Sulfate 2 mg Q1H PRN SC 07/18/24 22:30 Belladonna Alkaloids/ Phenobarbital 5 ml Q8HP PRN PO 07/18/24 22:30 Pantoprazole Sodium 40 mg DAILY IV 07/19/24 10:00 07/23/24 09:52 40 MG Sucralfate 1 gm QIDACHS PO 07/19/24 07:00 07/23/24 11:34 1 GM Magnesium Sulfate/ Dextrose 100 ml @ 100 mls/hr Q1HR IV 07/20/24 22:00 Hold Sodium Phosphate 1 tab BID PO 07/20/24 23:30 07/23/24 23:30 07/23/24 09:53 1 TAB Piperacillin Sod/ Tazobactam Sod 50 ml @ 12.5 mls/hr Q6HR IV 07/22/24 17:00 07/23/24 11:34 12.5 MLS/HR Acetaminophen 500 mg Q6HP PRN PO 07/22/24 17:15 07/23/24 12:05 500 MG objective Abdomen is soft mild nonspecific tenderness in both upper quadrants and epigastrium and periumbilically No rigidity no guarding laboratory and microbiology Laboratory Tests 07/23/24 09:50 Test 07/23/24 09:50 Range/Units Serum Glucose 90 74-106 mg/dL Assessment/Plan 73-year-old male with a history of hypertension hypercholesterolemia coronary artery disease status post multiple stents came with severe abdominal pain which was spastic and colicky referring radiate to the back patient has history of cholecystectomy in the past some nausea and anorexia but no hematemesis melena lower GI symptoms Examination mild tenderness in the epigastrium no rigidity no guarding Alk phos is increased bilirubin is also increased liver enzymes like AST ALT are normal lipase is normal at 37 Hemoglobin normal WBCs normal Clinical impression Abdominal pain status post cholecystectomy with abnormal liver enzymes especially alkaline phosphatase and bilirubin with normal lipase and transaminases Possibility choledocholithiasis with cholangitis to be strongly considered especially with fever and abnormal liver enzymes seen this post cholecystectomy patient His CFscan unfortunately is unremarkable but done without any contrast oral or IV plan apparently MRI MRCP could not be done because of the some question about metals If unable to do MRI we will recommend a dedicated CT with oral and IV contrast with special evaluation of the common bile duct as well as pancreatic ducts We will recommend to repeat the labs liver panel and lipase Because of the fever we will recommend also an ID consult Thank you Dr. Miller Dietary Evaluation Review Recommendations by RD: Decrease Calorie Intake Comments: Recommended intentional weight loss of 50 lbs through Low-carb low calorie 1800-calorie diet and aerobic exercises as tolerated a. RS -obesity hypoventilation and hypoxia, pulmonary embolism, sudden b.CVS-cardiac arrhythmia, embolic events c. GI-GE reflux d. Endocrine-diabetes and comorbidities from diabetes e Neuro-embolic CVA, lifelong disability [id number] susceptibility for Covid infection and comorbidities Expected Outcomes/Goals: Help avoiding comorbidities due to obesity Is there a minimum of two crit: No Plan discussed with: Patient STEVEN MILLER MD Jul 23, 2024 14:58
--- NOTE | 2024-07-23 15:18 | DVHPN2 ---
Progress Note - Dictate Date Seen: Jul 23, 2024 Has the PT tested + for MRSA If YES, has PT been informed?: No Medical Necessity Reason Pt with a Central, PICC or Fol: No Subjective Patient was seen and evaluated in follow up. Patient is complaining of generalized pain. Patient is febrile and patient is on cooling measures. Patient's daughter Cari at bedside. MRI has been held due to the patient having a pacemaker. K 3, [employer] 1.91, AST 54, ALT 46. vital signs Vital Sign Date Time Temp Pulse Resp B/P (MAP) Pulse Ox O2 Delivery O2 Flow Rate FiO2 07/23/24 13:05 99.8 07/23/24 11:00 70 125/59 07/23/24 10:00 94 Room Air 0.0 07/23/24 10:00 21 07/23/24 09:00 16 Total Intake and Output 07/22/24 07/22/24 07/23/24 15:00 23:00 07:00 Intake Total 150 ml 475 ml 665 ml Balance 150 ml 475 ml 665 ml medications Current Medications Medications Dose Ordered Sig/Anna Route Start Time Stop Time Status Last Admin Dose Admin Sodium Chloride 10 ml Q8HR IV 07/18/24 22:00 07/23/24 14:17 10 ML Docusate Sodium 100 mg BIDPRN PRN PO 07/18/24 21:45 Nitroglycerin 0.4 mg Q5MINP PRN SL 07/18/24 21:45 Tamsulosin HCl 0.4 mg DAILY PO 07/19/24 10:00 07/23/24 09:53 0.4 MG Aspirin 81 mg DAILY PO 07/19/24 10:00 07/20/24 10:13 81 MG Carvedilol 12.5 mg BID PO 07/18/24 22:00 07/23/24 09:53 12.5 MG EZETIMIBE 10 mg DAILY@LUNCH PO 07/19/24 12:00 07/23/24 11:34 10 MG Levothyroxine Sodium 100 mcg QAM PO 07/19/24 07:00 07/23/24 05:19 100 MCG Sotalol HCl 80 mg BID PO 07/18/24 22:00 07/23/24 09:53 80 MG Ticagrelor 90 mg BID PO 07/18/24 22:00 07/23/24 09:53 90 MG Ondansetron HCl 4 mg Q6HP PRN IV 07/18/24 22:15 07/23/24 09:52 4 MG Tamsulosin HCl 0.4 mg QPM PO 07/19/24 18:00 07/22/24 17:29 0.4 MG Finasteride 5 mg QPM PO 07/19/24 18:00 07/22/24 17:29 5 MG Morphine Sulfate 2 mg Q1H PRN SC 07/18/24 22:30 Belladonna Alkaloids/ Phenobarbital 5 ml Q8HP PRN PO 07/18/24 22:30 Pantoprazole Sodium 40 mg DAILY IV 07/19/24 10:00 07/23/24 09:52 40 MG Sucralfate 1 gm QIDACHS PO 07/19/24 07:00 07/23/24 11:34 1 GM Magnesium Sulfate/ Dextrose 100 ml @ 100 mls/hr Q1HR IV 07/20/24 22:00 Hold Sodium Phosphate 1 tab BID PO 07/20/24 23:30 07/23/24 23:30 07/23/24 09:53 1 TAB Piperacillin Sod/ Tazobactam Sod 50 ml @ 12.5 mls/hr Q6HR IV 07/22/24 17:00 07/23/24 11:34 12.5 MLS/HR Acetaminophen 500 mg Q6HP PRN PO 07/22/24 17:15 07/23/24 12:05 500 MG objective GENERAL: Awake, alert, oriented. LUNGS: Clear. CARDIOVASCULAR: Heart sounds are good. ABDOMEN: Soft. laboratory and microbiology Laboratory Tests 07/23/24 09:50 Test 07/23/24 09:50 Range/Units Serum Glucose 90 74-106 mg/dL Problem List Acute epigastric abdominal pain. NSTEMI. Coronary artery disease-status post CABG and PTCA. Fairly well-controlled hypertension. Hypercholesterolemia. Acute kidney injury on CKD. Prostatic hyperplasia. HFrEF. Atrial fibrillation, s/p recent cardiac ablation. Assessment/Plan Continued all current supportive medical care. Echocardiogram. Aspirin, Lipitor. Coreg. Morphine for pain management. Nitro SL. GI prophylactics. Additional plan as per the hospital course. Dietary Evaluation Review Recommendations by RD: Decrease Calorie Intake Comments: Recommended intentional weight loss of 50 lbs through Low-carb low calorie 1800-calorie diet and aerobic exercises as tolerated a. RS -obesity hypoventilation and hypoxia, pulmonary embolism, sudden b.CVS-cardiac arrhythmia, embolic events c. GI-GE reflux d. Endocrine-diabetes and comorbidities from diabetes e Neuro-embolic CVA, lifelong disability [id number] susceptibility for Covid infection and comorbidities Expected Outcomes/Goals: Help avoiding comorbidities due to obesity Is there a minimum of two crit: No Plan discussed with: Patient CHANTEL REY MD Jul 23, 2024 14:28
[2024-07-23] MEDS ORDERED: methylPREDNISolone SOD SUCC 125 MG/2 ML VL IV PRN (17:00)
--- NOTE | 2024-07-23 17:21 | DVHPN2 ---
Progress Note - Dictate Date Seen: Jul 23, 2024 Has the PT tested + for MRSA If YES, has PT been informed?: No Medical Necessity Reason Pt with a Central, PICC or Fol: No Medical Necessity Reason Febrile illness RUQ abdominal pains Jaundice Currently on IV antibiotics Subjective The patient remains symptomatic for hyperpyrexia (T-max 102.9 F) cough Accompanied by mind jaundice and elevation of liver enzymes. Serum TB 2.2 mg Mild elevation of AST/ALT and significantly high alkaline phosphatase * Awaiting to receive MRCP/CT scan abdomen imaging studies * Currently followed by Dr. Serge Marion. * Patient may require cardiac clearance prior to MRI * Dr. Luiz Miller gastroenterology also recommends MRCP to rule out CBD pathology Overnight events are reviewed through medical chart and case discussion with patient's assigned RN while making rounds on patient on the day of service vital signs Vital Sign Date Time Temp Pulse Resp B/P (MAP) Pulse Ox O2 Delivery O2 Flow Rate FiO2 07/23/24 13:05 99.8 07/23/24 13:00 63 17 91/48 (62) 91 07/23/24 10:00 Room Air 0.0 07/23/24 10:00 21 Total Intake and Output 07/22/24 07/22/24 07/23/24 15:00 23:00 07:00 Intake Total 150 ml 475 ml 665 ml Balance 150 ml 475 ml 665 ml medications Current Medications Medications Dose Ordered Sig/Anna Route Start Time Stop Time Status Last Admin Dose Admin Sodium Chloride 10 ml Q8HR IV 07/18/24 22:00 07/23/24 14:17 10 ML Docusate Sodium 100 mg BIDPRN PRN PO 07/18/24 21:45 Nitroglycerin 0.4 mg Q5MINP PRN SL 07/18/24 21:45 Tamsulosin HCl 0.4 mg DAILY PO 07/19/24 10:00 07/23/24 09:53 0.4 MG Aspirin 81 mg DAILY PO 07/19/24 10:00 07/20/24 10:13 81 MG Carvedilol 12.5 mg BID PO 07/18/24 22:00 07/23/24 09:53 12.5 MG EZETIMIBE 10 mg DAILY@LUNCH PO 07/19/24 12:00 07/23/24 11:34 10 MG Levothyroxine Sodium 100 mcg QAM PO 07/19/24 07:00 07/23/24 05:19 100 MCG Sotalol HCl 80 mg BID PO 07/18/24 22:00 07/23/24 09:53 80 MG Ticagrelor 90 mg BID PO 07/18/24 22:00 07/23/24 09:53 90 MG Ondansetron HCl 4 mg Q6HP PRN IV 07/18/24 22:15 07/23/24 14:26 4 MG Tamsulosin HCl 0.4 mg QPM PO 07/19/24 18:00 07/22/24 17:29 0.4 MG Finasteride 5 mg QPM PO 07/19/24 18:00 07/22/24 17:29 5 MG Morphine Sulfate 2 mg Q1H PRN SC 07/18/24 22:30 Belladonna Alkaloids/ Phenobarbital 5 ml Q8HP PRN PO 07/18/24 22:30 Pantoprazole Sodium 40 mg DAILY IV 07/19/24 10:00 07/23/24 09:52 40 MG Sucralfate 1 gm QIDACHS PO 07/19/24 07:00 07/23/24 11:34 1 GM Magnesium Sulfate/ Dextrose 100 ml @ 100 mls/hr Q1HR IV 07/20/24 22:00 Hold Sodium Phosphate 1 tab BID PO 07/20/24 23:30 07/23/24 23:30 07/23/24 09:53 1 TAB Piperacillin Sod/ Tazobactam Sod 50 ml @ 12.5 mls/hr Q6HR IV 07/22/24 17:00 07/23/24 11:34 12.5 MLS/HR Acetaminophen 500 mg Q6HP PRN PO 07/22/24 17:15 07/23/24 12:05 500 MG objective Physical Exam General appearance: Well-developed, tall obese,elderly white male in discomfort Awake alert oriented x3 no respiratory distress Head: Normocephalic nontraumatic Eyes: EOMI, JOIE, sclera tinge icteric, conjunctive-pale ENT: No congestion, NSL bilateral symmetrical, oral mucosa dry Neck: Supple, carotid upstroke +2, trachea midline, JVD-3 cm, C spine- Full ROM No thyroid or lymph node , no use of sternomastoid muscle Chest: Bilateral symmetrical expansions, No costochondral tenderness Lungs: clear breath sounds all over except reduced at bases CVS: PMI- 1.5 cm medial to L MCL in fifth ICS , S1-S2 NSR no S3 GI: Abdomen soft, obese, bowel sounds normoactive RUQ tenderness-present, no rebound tenderness No hepatosplenomegaly, no mass no hernia , : No CVA tenderness, no bladder mass palpable, genitalia-NE SKIN: Turgor normal, color pink, no rash, no icterus, No varicosity, no ulcers or wounds EXTs: No edema, color pink, no rash, no ecchymosis distal pulses +2 capillary refill <2 seconds, No open wounds JOINTS; full range of motion BACK: No apparent lumbosacral spinal muscle tenderness, LYMPH NODES: No cervical, axillary or inguinal lymph nodes Neuro: Awake alert oriented 4, coherent, all cognitives- intact No pronator drift, no focal motor/sensory deficit, DTR + PSYCH: No new focal finding laboratory and microbiology Laboratory Tests 07/23/24 09:50 Test 07/23/24 09:50 Range/Units Serum Glucose 90 74-106 mg/dL Problem List 1. Acute RUQ/epigastric abdominal pains accompanied by hyperpyrexia and jaundice a. Suspect rule out cholangitis Choledocholithiasis 2. Hemolytic jaundice 3. Elevated troponins a. Status post recent ablation therapy b. Possible Acute non STEMI 4. Coronary artery disease-status post CABG and PTCA 4. Fairly well-controlled hypertension 5. Hypercholesterolemia 6. Acute kidney injury on CKD From A intravascular volume depletion B. Inadvertent effect of diuretics 2' Diagnosis/Comorbidities Assessment/Plan Medical decision making: Suspect acute cholangitis manifested by hyperpyrexia, RUQ abdominal pains, jaundice and elevated liver functions Present at time of admission: Yes Status: Acute Problem specific AP: * Remains symptomatic for hyperpyrexia (102.9 F) with residual RUQ/epigastric abdominal pains and mild worsening of jaundice. Noted relative bradycardia with hyperpyrexia raises concern about 1. Drug-induced fever 2. Inadvertent effect of sotalol * Overall, his general condition remains hemodynamically stable * Leukocytosis improved to 8.4 K with neutrophilia (84%)-suggestive of acute inflammatory condition * Liver enzymes AST/ALT have improved to the baseline while noted High value of alkaline phosphatase and bilirubin at 2.2 mg/dL Recommended patient to receive MRCP in based on my consensus from case discussion Dr. Serge marion, infectious Disease and Dr. Luiz Miller gastroenterology * Patient may need pacemaker interrogation prior to MRI as per my case discussion with Dr. Luiz Hamilton * High value of reticulocyte points at hemolytic jaundice- * Awaiting to receive consolidation from Dr. Louie Connell * Hepatitis panels are pending * CT abdomen pelvis did not show acute inflammatory condition affecting internal organs * Continue patient on Revised dose of IV Zosyn Elevated troponins a. Rule out Acute non STEMI ........................................... Clinically stable Present at time of admission: Yes Status: Acute Problem specific AP: * Patient remains hemodynamically stable * Seen by Dr. Luiz Hamilton * Recommends 2D echo exam * Continued on antiplatelet agents Acute kidney injury on CKD..................................................... Worse today From A intravascular volume depletion B. Inadvertent effect of Dyazide C. Chronic hypertensive kidney disease Present at time of admission: Yes Status: Acute Problem specific AP: * Etiology causes-predominantly from state of hypovolemia, inadvertent effect of Dyazide * Electrolyte panels reflective hypovolemic hyperchloremia which is corrected * Has been off hypotonic saline infusion for past 24 hours * Serum creatinine value improved to 1.91 mg/dL as compared to 1.5 mg/dL * Diuretics like Dyazide has been held * We will closely monitor patient's renal functions * Avoid nephrotoxic agents Fairly well-controlled hypertension Hypercholesterolemia Present at time of admission: No Status: Chronic Problem specific AP: * Will cautiously continue antihypertensive medication and low-salt * Will continue patient on Lipitor and low-cholesterol diet 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 RS -obesity hypoventilation and hypoxia, pulmonary embolism, sudden b.CVS-cardiac arrhythmia, embolic events c. GI-GE reflux d. Endocrine-diabetes and comorbidities from diabetes e Neuro-embolic CVA, lifelong disability [id number] susceptibility for Covid infection and comorbidities Recommended patient to follow a. daily weight, b. ADA 1800-calorie diet-40% calories from breakfast 30% calories from lunch and dinner each, avoid carbonated soda c. Recommended aerobic exercises like walking 1-5 miles per day, riding on a stationary bike for 1-2 hours Patient education: * Updated depletion about his current condition treatment plans and prognosis * All his questions concerns were satisfactorily addressed Treatment plans as of today Continue hospital stay at telemetry bed Requests pacemaker interrogation by [facility] Continue patient on revised dose of IV Zosyn Order blood cultures p.r.n. temp > 101.5 x2 more times Order ammonia level and serum lactate Monitor CBC CMP tomorrow morning Await for hepatitis panel results Await consultation from Dr. louie connell Reviewed input of Dr. Luiz Miller gastroenterology-case discussed with him Reviewed input of Dr. Serge marion, infectious Disease-case discussed with him Reviewed the results of Ultrasound CT of abdomen with patient Continue Neutra-Phos FIO2 2 L via nasal cannula NTG 0.4 mg sublingual Q 5" x 3 angina Morphine sulfate 2 mg slow IV push -unstable angina Await for 2D echo exam Education on obesity management VTE precautions Update patient The patient is well informed by me about 1. Clinical impression, treatment plans, side effects of medications, course of the disease and guarded prognosis 2. All patient's question/ concerns raised by patient are satisfactorily addressed by me Prognosis Fair to guarded Dietary Evaluation Review Recommendations by RD: Decrease Calorie Intake Comments: Recommended intentional weight loss of 50 lbs through Low-carb low calorie 1800-calorie diet and aerobic exercises as tolerated a. RS -obesity hypoventilation and hypoxia, pulmonary embolism, sudden b.CVS-cardiac arrhythmia, embolic events c. GI-GE reflux d. Endocrine-diabetes and comorbidities from diabetes e Neuro-embolic CVA, lifelong disability [id number] susceptibility for Covid infection and comorbidities Expected Outcomes/Goals: Help avoiding comorbidities due to obesity Is there a minimum of two crit: No Plan discussed with: Patient Critical Care Time(min): 45 PAM MARION MD Jul 23, 2024 17:21
[2024-07-24] VITALS (8 sets, daily range): BP systolic 94–129; BP diastolic 44–80; PULSE 64–117; RESP 16–29; TEMP 97.8–98.2; O2SAT 94–98
--- NOTE | 2024-07-24 00:30 | DVHINCON2 ---
Date of service: Jul 24, [address] Hamilton Reason for Consultation history of pituitary surgery History of Present Illness 73 year old male with a history of atrial fibrillation, CAD s/p CABG x 3, HTN, HLD, Afib, pituitary adenoma s/p resection complicated by central hypothyroidism who was admitted on 07/18 for acute epigastric pain. Patient has been hemodynamically stable since admission. Troponins have been mildly elevated to max 64. LFTs with mild elevation currently to AST 54, ALT 46, alk phos 170. Patient has had recent hyperpyrexia with development of jaundice concerning for cholangitis. Patient was starting on empiric zosyn. No acute infection currently identified via cultures. Patient reports history of pituitary adenoma complicated by what is described to be apoplexy s/p resection in 2018. He follows with Dr Darren Camejo at [facility] for his endocrinological care. He has not had an MRI to his recollection since the surgery due to in place stents and other surgical hardware. Patient states his resection was complicated by deficiencies requiring residential levothyroxine, hydrocortisone 20mg qam, somatropin daily. He has not been on any hydrocortisone since admission and as stated he remains hemodynamically stable. Past Medical History Problems Medical Problems: (1) Acute abdominal pain Status: Acute (2) Acute gouty arthritis Status: Acute (3) CAD (coronary artery disease) of artery bypass graft Status: Acute (4) CAD S/P percutaneous coronary angioplasty Status: Acute (5) Cellulitis of right lower extremity without foot Status: Acute (6) Hypokalemia Status: Acute (7) Moderate protein malnutrition Status: Acute (8) Neutrophilic leukocytosis Status: Acute (9) Pacemaker Status: Acute (10) Renal insufficiency Status: Acute Past Surgical History Past Surgical History Medical Problems: (1) Acute abdominal pain Status: Acute (2) Acute gouty arthritis Status: Acute (3) CAD (coronary artery disease) of artery bypass graft Status: Acute (4) CAD S/P percutaneous coronary angioplasty Status: Acute (5) Cellulitis of right lower extremity without foot Status: Acute (6) Hypokalemia Status: Acute (7) Moderate protein malnutrition Status: Acute (8) Neutrophilic leukocytosis Status: Acute (9) Pacemaker Status: Acute (10) Renal insufficiency Status: Acute Family History: Cardiovascular disease G8 MOTHER G8 FATHER Allergies: Coded Allergies: Amlodipine (Verified Allergy, Severe, 09/25/17) Iodine (Verified Allergy, Severe, 09/25/17) Latex (Verified Allergy, Severe, 09/25/17) Home Meds Reported Medications Ibuprofen (Ibuprofen) 800 Mg Tab, 800 MG PO BIDP PRN for MILD PAIN OR TEMP>100.4, MG 09/25/17 Hyoscyamine Sulfate (Hyoscyamine Sulfate) 0.375 Mg Tab, 0.375 MG PO BIDPRN for 30 Days, MG 09/25/17 Aspirin (Aspir-Low) 81 Mg Tab, 81 MG PO DAILY for 30 Days, MG 09/25/17 Ticagrelor Base (BRILINTA) 90 Mg Tab, 90 MG PO BID, TAB 09/25/17 Carvedilol (Carvedilol) 12.5 Mg Tab, 1 TAB PO BID, #180 TAB 1 Refill 09/25/17 Triamterene & Hydrochlorothiaz (Maxzide-25) Tab, 1 TAB PO DAILY, #30 TAB 5 Refills 09/25/17 Dutasteride (Avodart) 0.5 Mg Cap, 1 CAP PO DAILY, #30 CAP 5 Refills 09/25/17 Sotalol Hcl (Sotalol Hcl) 80 Mg Tab, 1 TAB PO BID, #60 TAB 5 Refills 09/25/17 Potassium Chloride (Klor-Con M10) 10 Meq Tab, 1 TAB PO DAILY, #30 TAB 5 Refills 09/25/17 Isosorbide Mononitrate (Isosorbide Mononitrate Er) 30 Mg Tab, 30 MG PO DAILY for 30 Days, MG 09/25/17 Levothyroxine Sodium (Levothyroxine Sodium) 100 Mcg Tab, 100 MCG PO QAM for 30 Days, MCG 09/25/17 Allopurinol (Allopurinol) 300 Mg Tab, 300 MG PO DAILY for 30 Days, MG 09/25/17 Ezetimibe (Zetia) 10 Mg Tab, 1 TAB PO DAILY, #30 TAB 5 Refills 09/25/17 Atorvastatin Calcium (ATORVASTATIN CALCIUM) 80 Mg Tab, 80 MG PO HS, TAB 09/25/17 Current Medications Current Medications Medications (Trade) Dose Ordered Sig/Anna Route PRN Reason Start Time Stop Time Status Last Admin Methylprednisolone Sodium Succinate (Solu Medrol) 125 mg PRN PRN IV prior CT with contrast 07/23/24 17:00 07/23/24 17:50 DC Methylprednisolone Sodium Succinate (Solu Medrol) 80 mg Q6H PRN IV Post CT with contrast 07/23/24 17:15 07/23/24 18:32 DC Methylprednisolone Sodium Succinate (Solu Medrol) 80 mg Q6H PRN IV Post CT with contrast 07/24/24 07:00 07/24/24 13:01 Review of Systems Negative other than that which is stated in the HPI. Vital Signs Vital Signs Date Time Temp Pulse Resp B/P (MAP) Pulse Ox O2 Delivery O2 Flow Rate FiO2 07/23/24 22:09 70 105/66 07/23/24 22:08 101.2 07/23/24 20:00 Room Air* 0 21 07/23/24 17:00 19 97 Physical Exam General - lying in bed, in no acute distress, obese habitus HEENT - normocephalic, atraumatic, no thyromegaly, no lymphadenopathy CV - no murmurs Resp - clear to auscultation bilaterally Psych - alert and oriented x 4 Labs/Diagnostic Data Labs Test 07/23/24 09:50 07/22/24 17:55 07/22/24 07:35 07/20/24 06:35 Range/Units White Blood Count 8.6 4.4-10.8 10^3/uL Red Blood Count 3.86 L 4.5-5.90 10^6/uL Hemoglobin 12.4 L 13.5-17.5 g/dL Hematocrit 37.3 L 41.0-53.0 % Mean Corpuscular Volume 96.8 80.0-100.0 fL Mean Corpuscular Hemoglobin 32.1 H 28.0-32.0 pg Mean Corpuscular Hemoglobin Concent 33.2 32.0-36.0 g/dL Red Cell Distribution Width 19.0 H 11.8-14.3 % Platelet Count 127 L 140-450 10^3/uL Mean Platelet Volume 10.3 6.9-10.8 fL Neutrophils (%) (Auto) 84.0 H 37.0-80.0 % Lymphocytes (%) (Auto) 5.1 L 10.0-50.0 % Monocytes (%) (Auto) 8.4 0.0-12.0 % Eosinophils (%) (Auto) 2.1 0.0-7.0 % Basophils (%) (Auto) 0.4 0.0-2.0 % Neutrophils # (Auto) 7.2 1.6-8.6 10 ^3/uL Lymphocytes # (Auto) 0.4 0.4-5.4 10 ^3/uL Monocytes # (Auto) 0.7 0-1.3 10 ^3/uL Eosinophils # (Auto) 0.2 0-0.8 10 ^3/uL Basophils # (Auto) 0 0-0.2 10 ^3/uL Nucleated Red Blood Cells 0.1 % Sodium Level 136 136-145 mmol/L Potassium Level 3.0 L 3.5-5.1 mmol/L Chloride Level 101 98-107 mmol/L Carbon Dioxide Level 24 20-31 mmol/L Anion Gap 11 5-15 Blood Urea Nitrogen 14 9-23 mg/dL Creatinine 1.91 H 0.700-1.30 mg/dL Glomerular Filtration Rate Calc 36 >90 mL/min BUN/Creatinine Ratio 7.3 L 10.0-20.0 Serum Glucose 90 74-106 mg/dL Calcium Level 8.5 L 8.7-10.4 mg/dL Total Bilirubin 2.2 H 0.2-1.0 mg/dL Aspartate Amino Transferase (AST) 54 H 13-40 U/L Alanine Aminotransferase (ALT) 46 H 7-40 U/L Alkaline Phosphatase 170 H 46-116 U/L Total Protein 6.0 5.7-8.2 g/dL Albumin 3.5 3.2-4.8 g/dL Lipase 40 12-53 U/L Ammonia 18 11-32 umol/L Reticulocyte Count (auto) 2.24 H 0.5-1.5 % Phosphorus Level 2.2 L 2.4-5.1 mg/dL Magnesium Level 1.9 1.6-2.6 mg/dL Triglycerides Level 115 < 150 mg/dL Cholesterol Level 133 < 200 mg/dL LDL Cholesterol 59 < 100 mg/dL HDL Cholesterol 50 40-59 mg/dL Vitamin B12 Level 373 211-911 pg/mL Folic Acid 18.07 >5.38 ng/mL Test 07/19/24 03:00 07/18/24 21:30 07/18/24 18:20 07/18/24 17:39 Range/Units Troponin I High Sensitivity 56 *H </=54 ng/L Thyroid Stimulating Hormone (TSH) 0.08 L 0.55-4.78 uIU/mL Plasma/Serum Blood Alcohol 3.4 <10 mg/dL Urine Color Yellow Yellow Urine Clarity Clear Clear Urine pH 5.5 5.0-9.0 Urine Specific [place] 1.023 1.001-1.035 Urine Protein Trace H Negative Urine Ketones Negative Negative Urine Blood Negative Negative /uL Urine Nitrite Negative Negative Urine Bilirubin Negative Negative Urine Urobilinogen 2 H Negative mg/dL Urine Leukocyte Esterase Negative Negative /uL Urine RBC 1 0 - 3 /hpf Urine WBC None seen 0 - 3 /hpf Urine Squamous Epithelial Cells None seen <5 /hpf Urine Bacteria None seen None Seen /hpf Urine Hyaline Casts Few 0 - 2 /lpf Urine Glucose 4+ H Normal mg/dL Urine Opiates Screen Neg NEGATIVE Urine Fentanyl Screen Neg NEGATIVE Urine Barbiturates Screen Neg NEGATIVE Urine Phencyclidine Screen Neg NEGATIVE Urine Amphetamines Screen Neg NEGATIVE Urine Benzodiazepines Screen Neg NEGATIVE Urine Cocaine Screen Neg NEGATIVE Urine Cannabinoids Screen Neg NEGATIVE B-Type Natriuretic Peptide 150.33 0-100 pg/mL Microbiology Date/Time Source Procedure Growth Status 07/22/24 17:55 Blood Blood Culture - Preliminary NO GROWTH AFTER 24 HOURS OF INCUBATION. Resulted Assessment 73 year old male with a history of atrial fibrillation, CAD s/p CABG x 3, HTN, HLD, Afib, pituitary adenoma s/p resection complicated by central hypothyroidism who was admitted on 07/18 for acute epigastric pain. 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 He has notably not been on his home hydrocortisone 20mg daily since admission without evidence of hemodynamic compromise. While he may have some underlying adrenal function, given his acute illness he will unlikely be able to mount an appropriate stress response and as such we will start empiric hydrocortisone stress dose therapy. - Start IV hydrocortisone 50mg q8h - Continue home levothyroxine # Acute epigastric pain # Coronary artery disease s/p CABG x 3 # Hypertension # Hyperlipidemia # Atrial fibrillation - Rest of management per primary team Thank you Dr Hamilton for the consultation. Please do not hesitate to contact me for any further questions. I will continue to follow along closely. Joao Downs MD Endocrinology Plan discussed with: Patient JOAO DOWNS MD Jul 24, 2024 00:30
[2024-07-24] MEDS: HYDROCORTISONE SOD SUCC 100 MG/2ML INJ VIAL IV SCH (05:17)
[2024-07-24] MEDS: IOHEXOL 300 MG/ML 100ML BOTTLE IJ ONE (07:46)
[2024-07-24] MEDS: GASTROGRAFIN 30 ML SOL ONE (07:46)
[2024-07-24 09:32] LABS: Hepatitis B Surface Antigen Negative (Negative)
[2024-07-24 09:52] LABS: Hepatitis A Ab IgM Negative
[2024-07-24 09:53] LABS: Hepatitis B Core IgM Negative (Negative)
[2024-07-24 09:54] LABS: Hepatitis C Antibody Negative (Negative)
[2024-07-24] MEDS: methylPREDNISolone SOD SUCC 125 MG/2 ML VL IV ONE (10:41)
--- NOTE | 2024-07-24 12:06 | DVH ---
Exam: CT CT ABD PELVIS W CON-ORAL IV History: abd pain TECHNIQUE: A digital care transitions nurse image was obtained. During the uneventful, intravenous administration of c ontrast material, multislice data acquisition was obtained through the abdomen and pelvis. The data s et was subsequently reconstructed into axial images. Images were reviewed on a work station using a c ombination of axial and multiplanar using a variety of window levels and settings. 100 cc of Omnipaqu e 300 contrast was injected intravenously. All CT scans at this medical facility are performed using dose modulation techniques as appropriate t o a performed exam including the following:Automated exposure control was utilized; adjustment of the MA and/or KV according to patient size; and use of iterative reconstruction technique. Radiation Dose Information: CT Dose: CTDI volume is 23.01 mGy. Dose-length product is 1462.27 mGy*cm Comparison: CT CT AB PEL WO CON-NO ORAL OR IV on DOS: 07/18/24 FINDINGS: There are several left renal cysts measuring up to 2.9 cm. There is no evidence of nephrolithiasis o r hydronephrosis. The gallbladder is surgically absent. Theliver, pancreas, adrenal glands, and spleen appear within normal limits. There is no evidence of abdominal lymphadenopathy. There is no free fluid or free air. The stomach grossly appears unremarkable. The small and large bowel loops demonstrate normal caliber and appear within normal limits.. There is barium contrast seen throughout the colon. The abdominal aorta and IVC appear within normal limits. The bladder appears within normal limits the degree of distention. Pelvic organs is unremarkable. Th ere is no evidence of a pelvic mass or lymphadenopathy. There is no free fluid collection. There is again nonspecific fluid collections and fat stranding in the right and left groin subcutaneous tissue s. There is curvilinear scarring versus atelectasis in the left lung base. There is no acute osseous abnormality. IMPRESSION: 1. Nonspecific fluid collections and fat stranding in the right and left groin subcutaneous tissues. Clinical correlation is recommended as well as further evaluation with ultrasound. HS:Y
[2024-07-24] MEDS: methylPREDNISolone SOD SUCC 125 MG/2 ML VL IV PRN ×2 (12:26→18:38)
--- NOTE | 2024-07-24 22:12 | DVHPN2 ---
Consult Progress Note Date Seen: Jul 24, 2024 Subjective Patient reports: Other (no fevers in last 24 hours , acute pain episodes , normal active bowel sounds and no signs of discomfort there ) Objective vital signs Vital Sign Date Time Temp Pulse Resp B/P (MAP) Pulse Ox O2 Delivery O2 Flow Rate FiO2 07/24/24 21:00 98.1 70 18 129/57 (81) 96 98.1 07/24/24 10:00 Room Air* 0 21 Total Intake and Output 07/23/24 07/23/24 07/24/24 15:00 23:00 07:00 Intake Total 25 ml 325 ml 530 ml Output Total 250 ml Balance 25 ml 75 ml 530 ml medications Current Medications Medications Dose Ordered Sig/Anna Route Start Time Stop Time Status Last Admin Dose Admin Sodium Chloride 10 ml Q8HR IV 07/18/24 22:00 07/24/24 13:21 10 ML Docusate Sodium 100 mg BIDPRN PRN PO 07/18/24 21:45 Nitroglycerin 0.4 mg Q5MINP PRN SL 07/18/24 21:45 Tamsulosin HCl 0.4 mg DAILY PO 07/19/24 10:00 07/24/24 08:58 0.4 MG Aspirin 81 mg DAILY PO 07/19/24 10:00 07/20/24 10:13 81 MG Carvedilol 12.5 mg BID PO 07/18/24 22:00 07/24/24 09:01 12.5 MG EZETIMIBE 10 mg DAILY@LUNCH PO 07/19/24 12:00 07/24/24 13:20 10 MG Levothyroxine Sodium 100 mcg QAM PO 07/19/24 07:00 07/24/24 05:17 100 MCG Sotalol HCl 80 mg BID PO 07/18/24 22:00 07/24/24 09:01 80 MG Ticagrelor 90 mg BID PO 07/18/24 22:00 07/24/24 08:59 90 MG Ondansetron HCl 4 mg Q6HP PRN IV 07/18/24 22:15 07/24/24 08:58 4 MG Tamsulosin HCl 0.4 mg QPM PO 07/19/24 18:00 07/24/24 18:37 0.4 MG Finasteride 5 mg QPM PO 07/19/24 18:00 07/24/24 18:37 5 MG Morphine Sulfate 2 mg Q1H PRN SC 07/18/24 22:30 Belladonna Alkaloids/ Phenobarbital 5 ml Q8HP PRN PO 07/18/24 22:30 Pantoprazole Sodium 40 mg DAILY IV 07/19/24 10:00 07/24/24 08:58 40 MG Sucralfate 1 gm QIDACHS PO 07/19/24 07:00 07/24/24 18:37 1 GM Magnesium Sulfate/ Dextrose 100 ml @ 100 mls/hr Q1HR IV 07/20/24 22:00 Hold Piperacillin Sod/ Tazobactam Sod 50 ml @ 12.5 mls/hr Q6HR IV 07/22/24 17:00 07/24/24 18:37 12.5 MLS/HR Acetaminophen 500 mg Q6HP PRN PO 07/22/24 17:15 07/23/24 22:08 500 MG Hydrocortisone Sodium Succinate 50 mg Q8HR IV 07/24/24 06:00 07/24/24 05:17 50 MG Physical Exam: General: NAD Neck: Supple. No masses. HEENT: PERRL. Normal lids and conjunctiva. Moist mucous membranes. Oropharynx without lesions, exudates or excessive erythema. Normal appearance of the external aspects of the nose and ears. Heart: Regular rhythm, normal rate. No murmur. No lower extremity edema. Lungs: Normal respiratory effort. Clear to auscultation bilaterally. No wheezes. No crackles. Abdomen: Mildly distended. Soft, non-tender. Normal active bowel sounds. No masses or abdominal hernia. Msk: No digital cyanosis. Normal strength and tone in all 4 limbs Skin: Warm and dry, no rashes. Neuro: Alert. No facial droop or slurred speech. Extra-ocular movements intact. Sensation intact to soft touch in all 4 limbs. Psych: Appropriate mood. Full affect. Oriented to person, place, time, and situation. laboratory and microbiology Laboratory Tests 07/23/24 09:50 Test 07/23/24 09:50 Range/Units Serum Glucose 90 74-106 mg/dL Problem List/Assessment/Plan Problems(with codes): (1) Chest pain, rule out acute myocardial infarction (2) Acute abdominal pain (3) Chest pain with moderate risk of acute coronary syndrome Problem List/Assessment/Plan ID Problem List: - Acute epigastric abdominal pain - Hyperbilirubinemia - Elevated liver enzymes - Fevers - Possible ascending cholangitis Assessment This is a 73 y.o. male with a past medical history of hypertension, hypercholesterolemia, coronary artery disease status post multiple stents and CABG, sick sinus syndrome with pacemaker and ICD, COPD, asthma, GERD, chronic kidney disease, BPH, pituitary adenoma, and gouty arthritis, who presents with acute onset of severe epigastric abdominal pain. He developed severe, colicky epigastric abdominal pain, rated 10/10, causing him to be doubled over. On evaluation in the ED, his blood pressure was 95/65, which has since improved. He denies nausea, vomiting, or heavy meals prior to symptom onset. He has not had recurrent severe abdominal pain since admission but is experiencing fevers up to 102.9F. Laboratory evaluation reveals elevated liver enzymes with AST 137 U/L, ALT 69 U/L, alkaline phosphatase 197 U/L, and total bilirubin initially 2.1 mg/dL, peaking at 24 mg/dL during admission. Imaging including abdominal CT and ultrasound were unremarkable, showing no acute intra-abdominal findings, no biliary duct dilation, and no hydronephrosis. Blood cultures were obtained and are no growth to date. Plan: - Suspect ascending cholangitis as the etiology of fevers and elevated LFTs in a post-cholecystectomy patient. continue Zosyn - Continue to monitor vital signs and trend liver enzymes. - Follow up on blood cultures. - Recommend MRCP to evaluate the biliary tract if feasible, considering pacemaker/ICD and bilateral prosthetic knee joints. - Defer any interventions, including ERCP, to GI service. Plan discussed with: Other Dietary Evaluation Review Recommendations by RD: Decrease Calorie Intake Comments: Recommended intentional weight loss of 50 lbs through Low-carb low calorie 1800-calorie diet and aerobic exercises as tolerated a. RS -obesity hypoventilation and hypoxia, pulmonary embolism, sudden b.CVS-cardiac arrhythmia, embolic events c. GI-GE reflux d. Endocrine-diabetes and comorbidities from diabetes e Neuro-embolic CVA, lifelong disability [id number] susceptibility for Covid infection and comorbidities Expected Outcomes/Goals: Help avoiding comorbidities due to obesity Is there a minimum of two crit: KALEY Moore MD Jul 24, 2024 22:12
--- NOTE | 2024-07-24 22:12 | DVHPN2 ---
Consult Progress Note Date Seen: Jul 23, 2024 Subjective Patient reports: Feels better (fevers of 101 ongoing) Objective vital signs Vital Sign Date Time Temp Pulse Resp B/P (MAP) Pulse Ox O2 Delivery O2 Flow Rate FiO2 07/24/24 21:00 98.1 70 18 129/57 (81) 96 98.1 07/24/24 10:00 Room Air* 0 21 Total Intake and Output 07/23/24 07/23/24 07/24/24 15:00 23:00 07:00 Intake Total 25 ml 325 ml 530 ml Output Total 250 ml Balance 25 ml 75 ml 530 ml medications Current Medications Medications Dose Ordered Sig/Anna Route Start Time Stop Time Status Last Admin Dose Admin Sodium Chloride 10 ml Q8HR IV 07/18/24 22:00 07/24/24 13:21 10 ML Docusate Sodium 100 mg BIDPRN PRN PO 07/18/24 21:45 Nitroglycerin 0.4 mg Q5MINP PRN SL 07/18/24 21:45 Tamsulosin HCl 0.4 mg DAILY PO 07/19/24 10:00 07/24/24 08:58 0.4 MG Aspirin 81 mg DAILY PO 07/19/24 10:00 07/20/24 10:13 81 MG Carvedilol 12.5 mg BID PO 07/18/24 22:00 07/24/24 09:01 12.5 MG EZETIMIBE 10 mg DAILY@LUNCH PO 07/19/24 12:00 07/24/24 13:20 10 MG Levothyroxine Sodium 100 mcg QAM PO 07/19/24 07:00 07/24/24 05:17 100 MCG Sotalol HCl 80 mg BID PO 07/18/24 22:00 07/24/24 09:01 80 MG Ticagrelor 90 mg BID PO 07/18/24 22:00 07/24/24 08:59 90 MG Ondansetron HCl 4 mg Q6HP PRN IV 07/18/24 22:15 07/24/24 08:58 4 MG Tamsulosin HCl 0.4 mg QPM PO 07/19/24 18:00 07/24/24 18:37 0.4 MG Finasteride 5 mg QPM PO 07/19/24 18:00 07/24/24 18:37 5 MG Morphine Sulfate 2 mg Q1H PRN SC 07/18/24 22:30 Belladonna Alkaloids/ Phenobarbital 5 ml Q8HP PRN PO 07/18/24 22:30 Pantoprazole Sodium 40 mg DAILY IV 07/19/24 10:00 07/24/24 08:58 40 MG Sucralfate 1 gm QIDACHS PO 07/19/24 07:00 07/24/24 18:37 1 GM Magnesium Sulfate/ Dextrose 100 ml @ 100 mls/hr Q1HR IV 07/20/24 22:00 Hold Piperacillin Sod/ Tazobactam Sod 50 ml @ 12.5 mls/hr Q6HR IV 07/22/24 17:00 07/24/24 18:37 12.5 MLS/HR Acetaminophen 500 mg Q6HP PRN PO 07/22/24 17:15 07/23/24 22:08 500 MG Hydrocortisone Sodium Succinate 50 mg Q8HR IV 07/24/24 06:00 07/24/24 05:17 50 MG Physical Exam: General: NAD Neck: Supple. No masses. HEENT: PERRL. Normal lids and conjunctiva. Moist mucous membranes. Oropharynx without lesions, exudates or excessive erythema. Normal appearance of the external aspects of the nose and ears. Heart: Regular rhythm, normal rate. No murmur. No lower extremity edema. Lungs: Normal respiratory effort. Clear to auscultation bilaterally. No wheezes. No crackles. Abdomen: Mildly distended. Soft, non-tender. Normal active bowel sounds. No masses or abdominal hernia. Msk: No digital cyanosis. Normal strength and tone in all 4 limbs Skin: Warm and dry, no rashes. Neuro: Alert. No facial droop or slurred speech. Extra-ocular movements intact. Sensation intact to soft touch in all 4 limbs. Psych: Appropriate mood. Full affect. Oriented to person, place, time, and situation. laboratory and microbiology Laboratory Tests 07/23/24 09:50 Test 07/23/24 09:50 Range/Units Serum Glucose 90 74-106 mg/dL Problem List/Assessment/Plan Problem List/Assessment/Plan Problems(with codes): (1) Acute abdominal pain (2) Chest pain, rule out acute myocardial infarction (3) Chest pain with moderate risk of acute coronary syndrome Plan/Recommendation ASSESSMENT AND PLAN: ID Problem List: - Acute epigastric abdominal pain - Hyperbilirubinemia - Elevated liver enzymes - Fevers - Possible ascending cholangitis Assessment This is a 73 y.o. male with a past medical history of hypertension, hypercholesterolemia, coronary artery disease status post multiple stents and CABG, sick sinus syndrome with pacemaker and ICD, COPD, asthma, GERD, chronic kidney disease, BPH, pituitary adenoma, and gouty arthritis, who presents with acute onset of severe epigastric abdominal pain. He developed severe, colicky epigastric abdominal pain, rated 10/10, causing him to be doubled over. On evaluation in the ED, his blood pressure was 95/65, which has since improved. He denies nausea, vomiting, or heavy meals prior to symptom onset. He has not had recurrent severe abdominal pain since admission but is experiencing fevers up to 102.9F. Laboratory evaluation reveals elevated liver enzymes with AST 137 U/L, ALT 69 U/L, alkaline phosphatase 197 U/L, and total bilirubin initially 2.1 mg/dL, peaking at 24 mg/dL during admission. Imaging including abdominal CT and ultrasound were unremarkable, showing no acute intra-abdominal findings, no biliary duct dilation, and no hydronephrosis. Blood cultures were obtained and are no growth to date. Plan: - Suspect ascending cholangitis as the etiology of fevers and elevated LFTs in a post-cholecystectomy patient. continue Zosyn - Continue to monitor vital signs and trend liver enzymes. - Follow up on blood cultures. - Recommend MRCP to evaluate the biliary tract if feasible, considering pacemaker/ICD and bilateral prosthetic knee joints. - Defer any interventions, including ERCP, to GI service. Isolation Precautions: standard Assessment and plan were discussed with the patient as written above Plan is subject to change pending incorporation of new incoming information/diagnostics. Updates may be added as addendum at the bottom (OR TOP) of this note Thank you for interesting consult. We will continue to follow. Please contact us for any questions or concerns. Kaley Marion M.D. [facility] Ph: ? Plan discussed with: Patient Dietary Evaluation Review Recommendations by RD: Decrease Calorie Intake Comments: Recommended intentional weight loss of 50 lbs through Low-carb low calorie 1800-calorie diet and aerobic exercises as tolerated a. RS -obesity hypoventilation and hypoxia, pulmonary embolism, sudden b.CVS-cardiac arrhythmia, embolic events c. GI-GE reflux d. Endocrine-diabetes and comorbidities from diabetes e Neuro-embolic CVA, lifelong disability [id number] susceptibility for Covid infection and comorbidities Expected Outcomes/Goals: Help avoiding comorbidities due to obesity Is there a minimum of two crit: KALEY Moore MD Jul 24, 2024 22:12
[2024-07-24] MEDS: POTASSIUM CHL 20 Meq TABLET PO ONE (23:00)
--- NOTE | 2024-07-24 23:07 | DVHPN2 ---
Progress Note - Dictate Date Seen: Jul 24, 2024 Has the PT tested + for MRSA If YES, has PT been informed?: No Medical Necessity Reason Pt with a Central, PICC or Fol: No Subjective Patient was seen and evaluated in follow up. No overnight events. Patient is complaining of a cough. CT abd/pel shows nonspecific fluid collections and fat stranding in the right and left groin subcutaneous tissues. Hepatitis panel is negative. MRCP is pending. vital signs Vital Sign Date Time Temp Pulse Resp B/P (MAP) Pulse Ox O2 Delivery O2 Flow Rate FiO2 07/24/24 22:59 70 169/75 07/24/24 21:00 98.1 18 96 98.1 07/24/24 10:00 Room Air* 0 21 Total Intake and Output 07/23/24 07/23/24 07/24/24 15:00 23:00 07:00 Intake Total 25 ml 325 ml 530 ml Output Total 250 ml Balance 25 ml 75 ml 530 ml medications Current Medications Medications Dose Ordered Sig/Anna Route Start Time Stop Time Status Last Admin Dose Admin Sodium Chloride 10 ml Q8HR IV 07/18/24 22:00 07/24/24 23:01 10 ML Docusate Sodium 100 mg BIDPRN PRN PO 07/18/24 21:45 Nitroglycerin 0.4 mg Q5MINP PRN SL 07/18/24 21:45 Tamsulosin HCl 0.4 mg DAILY PO 07/19/24 10:00 07/24/24 08:58 0.4 MG Aspirin 81 mg DAILY PO 07/19/24 10:00 07/20/24 10:13 81 MG Carvedilol 12.5 mg BID PO 07/18/24 22:00 07/24/24 22:58 12.5 MG EZETIMIBE 10 mg DAILY@LUNCH PO 07/19/24 12:00 07/24/24 13:20 10 MG Levothyroxine Sodium 100 mcg QAM PO 07/19/24 07:00 07/24/24 05:17 100 MCG Sotalol HCl 80 mg BID PO 07/18/24 22:00 07/24/24 22:59 80 MG Ticagrelor 90 mg BID PO 07/18/24 22:00 07/24/24 08:59 90 MG Ondansetron HCl 4 mg Q6HP PRN IV 07/18/24 22:15 07/24/24 08:58 4 MG Tamsulosin HCl 0.4 mg QPM PO 07/19/24 18:00 07/24/24 18:37 0.4 MG Finasteride 5 mg QPM PO 07/19/24 18:00 07/24/24 18:37 5 MG Morphine Sulfate 2 mg Q1H PRN SC 07/18/24 22:30 Belladonna Alkaloids/ Phenobarbital 5 ml Q8HP PRN PO 07/18/24 22:30 Pantoprazole Sodium 40 mg DAILY IV 07/19/24 10:00 07/24/24 08:58 40 MG Sucralfate 1 gm QIDACHS PO 07/19/24 07:00 07/24/24 22:59 1 GM Magnesium Sulfate/ Dextrose 100 ml @ 100 mls/hr Q1HR IV 07/20/24 22:00 Hold Piperacillin Sod/ Tazobactam Sod 50 ml @ 12.5 mls/hr Q6HR IV 07/22/24 17:00 07/24/24 18:37 12.5 MLS/HR Acetaminophen 500 mg Q6HP PRN PO 07/22/24 17:15 07/23/24 22:08 500 MG Hydrocortisone Sodium Succinate 50 mg Q8HR IV 07/24/24 06:00 07/24/24 23:00 50 MG objective GENERAL: Awake, alert, oriented. LUNGS: Clear. CARDIOVASCULAR: Heart sounds are good. ABDOMEN: Soft. laboratory and microbiology Laboratory Tests 07/23/24 09:50 Test 07/23/24 09:50 Range/Units Serum Glucose 90 74-106 mg/dL Problem List Acute epigastric abdominal pain. NSTEMI. Coronary artery disease-status post CABG and PTCA. Fairly well-controlled hypertension. Hypercholesterolemia. Acute kidney injury on CKD. Prostatic hyperplasia. HFrEF. Atrial fibrillation, s/p recent cardiac ablation. Assessment/Plan Continued all current supportive medical care. Echocardiogram. Aspirin, Lipitor. Coreg. Morphine for pain management. Nitro SL. GI prophylactics. Additional plan as per the hospital course. Dietary Evaluation Review Recommendations by RD: Decrease Calorie Intake Comments: Recommended intentional weight loss of 50 lbs through Low-carb low calorie 1800-calorie diet and aerobic exercises as tolerated a. RS -obesity hypoventilation and hypoxia, pulmonary embolism, sudden b.CVS-cardiac arrhythmia, embolic events c. GI-GE reflux d. Endocrine-diabetes and comorbidities from diabetes e Neuro-embolic CVA, lifelong disability [id number] susceptibility for Covid infection and comorbidities Expected Outcomes/Goals: Help avoiding comorbidities due to obesity Is there a minimum of two crit: No Plan discussed with: Patient CHANTEL REY MD Jul 24, 2024 23:07
--- NOTE | 2024-07-24 23:56 | DVHPN2 ---
Progress Note - Dictate Date Seen: Jul 24, 2024 Has the PT tested + for MRSA If YES, has PT been informed?: No Medical Necessity Reason Pt with a Central, PICC or Fol: No Medical Necessity Reason Eval for adrenal insufficiency Febrile illness Abdominal pains And jaundice Subjective The patient has recovered from hyperpyrexia (T-max 102.9 F) cough Chest congestion * Remains completely afebrile, hemodynamically stemming * Repeat CT scan abdomen shows no abnormality at biliary tract * Total bilirubin remains at 2.2 mg with mild elevation of AST/PLT * Currently followed by Dr. Serge Marion. Overnight events are reviewed through medical chart and case discussion with patient's assigned RN while making rounds on patient on the day of service vital signs Vital Sign Date Time Temp Pulse Resp B/P (MAP) Pulse Ox O2 Delivery O2 Flow Rate FiO2 07/24/24 22:59 70 169/75 07/24/24 21:00 98.1 18 96 98.1 07/24/24 20:00 Room Air* 0 21 Total Intake and Output 07/23/24 07/23/24 07/24/24 15:00 23:00 07:00 Intake Total 25 ml 325 ml 530 ml Output Total 250 ml Balance 25 ml 75 ml 530 ml medications Current Medications Medications Dose Ordered Sig/Anna Route Start Time Stop Time Status Last Admin Dose Admin Sodium Chloride 10 ml Q8HR IV 07/18/24 22:00 07/24/24 23:01 10 ML Docusate Sodium 100 mg BIDPRN PRN PO 07/18/24 21:45 Nitroglycerin 0.4 mg Q5MINP PRN SL 07/18/24 21:45 Tamsulosin HCl 0.4 mg DAILY PO 07/19/24 10:00 07/24/24 08:58 0.4 MG Aspirin 81 mg DAILY PO 07/19/24 10:00 07/20/24 10:13 81 MG Carvedilol 12.5 mg BID PO 07/18/24 22:00 07/24/24 22:58 12.5 MG EZETIMIBE 10 mg DAILY@LUNCH PO 07/19/24 12:00 07/24/24 13:20 10 MG Levothyroxine Sodium 100 mcg QAM PO 07/19/24 07:00 07/24/24 05:17 100 MCG Sotalol HCl 80 mg BID PO 07/18/24 22:00 07/24/24 22:59 80 MG Ticagrelor 90 mg BID PO 07/18/24 22:00 07/24/24 23:14 90 MG Ondansetron HCl 4 mg Q6HP PRN IV 07/18/24 22:15 07/24/24 08:58 4 MG Tamsulosin HCl 0.4 mg QPM PO 07/19/24 18:00 07/24/24 18:37 0.4 MG Finasteride 5 mg QPM PO 07/19/24 18:00 07/24/24 18:37 5 MG Morphine Sulfate 2 mg Q1H PRN SC 07/18/24 22:30 Belladonna Alkaloids/ Phenobarbital 5 ml Q8HP PRN PO 07/18/24 22:30 Pantoprazole Sodium 40 mg DAILY IV 07/19/24 10:00 07/24/24 08:58 40 MG Sucralfate 1 gm QIDACHS PO 07/19/24 07:00 07/24/24 22:59 1 GM Magnesium Sulfate/ Dextrose 100 ml @ 100 mls/hr Q1HR IV 07/20/24 22:00 Hold Piperacillin Sod/ Tazobactam Sod 50 ml @ 12.5 mls/hr Q6HR IV 07/22/24 17:00 07/24/24 18:37 12.5 MLS/HR Acetaminophen 500 mg Q6HP PRN PO 07/22/24 17:15 07/23/24 22:08 500 MG Hydrocortisone Sodium Succinate 50 mg Q8HR IV 07/24/24 06:00 07/24/24 23:00 50 MG objective Physical Exam General appearance: Well-developed, tall obese,elderly white male in discomfort Awake alert oriented x3 no respiratory distress Head: Normocephalic nontraumatic Eyes: EOMI, JOIE, sclera tinge icteric, conjunctive-pale ENT: No congestion, NSL bilateral symmetrical, oral mucosa dry Neck: Supple, carotid upstroke +2, trachea midline, JVD-3 cm, C spine- Full ROM No thyroid or lymph node , no use of sternomastoid muscle Chest: Bilateral symmetrical expansions, No costochondral tenderness Lungs: clear breath sounds all over except reduced at bases CVS: PMI- 1.5 cm medial to L MCL in fifth ICS , S1-S2 NSR no S3 GI: Abdomen soft, obese, bowel sounds normoactive RUQ tenderness-present, no rebound tenderness No hepatosplenomegaly, no mass no hernia , : No CVA tenderness, no bladder mass palpable, genitalia-NE SKIN: Turgor normal, color pink, no rash, no icterus, No varicosity, no ulcers or wounds EXTs: No edema, color pink, no rash, no ecchymosis distal pulses +2 capillary refill <2 seconds, No open wounds JOINTS; full range of motion BACK: No apparent lumbosacral spinal muscle tenderness, LYMPH NODES: No cervical, axillary or inguinal lymph nodes Neuro: Awake alert oriented 4, coherent, all cognitives- intact No pronator drift, no focal motor/sensory deficit, DTR + PSYCH: No new focal finding laboratory and microbiology Laboratory Tests 07/23/24 09:50 Test 07/23/24 09:50 Range/Units Serum Glucose 90 74-106 mg/dL Problem List 1. Acute RUQ/epigastric abdominal pains accompanied by hyperpyrexia and jaundice...................................... Significantly improving a. Ruled out cholangitis/ Choledocholithiasis 2. Hemolytic jaundice 3. Elevated troponins a. Status post recent ablation therapy b. Possible Acute non STEMI 4. Coronary artery disease-status post CABG and PTCA 4. Fairly well-controlled hypertension 5. Hypercholesterolemia 6. Acute kidney injury on CKD From A intravascular volume depletion B. Inadvertent effect of diuretics 2' Diagnosis/Comorbidities Assessment/Plan Medical decision making: Ruled out acute cholangitis Lower respiratory tract infection accompanied by hyperpyrexia, RUQ abdominal pains, mild jaundice and elevated liver functions.... Improving Adrenal insufficiency and hypopituitarism Present at time of admission: Yes Status: Acute Problem specific AP: * The patient has recovered from hyperpyrexia, remains hemodynamically stable * Noted significantly improved altered mental status * Patient reports symptoms of hallucinations with hyperpyrexia in past * Reports improvement in state of chest congestion * Repeat CT scan abdomen is unremarkable for biliary tract pathology * Hepatitis panel is unremarkable * Leukocytosis improved to 8.4 K with neutrophilia (84%)-suggestive of acute inflammatory condition * Liver enzymes AST/ALT have improved to the baseline while noted High value of alkaline phosphatase and bilirubin at 2.2 mg/dL * High value of reticulocyte points at hemolytic jaundice- * Continue patient on Revised dose of IV Zosyn * Question about adrenal insufficiency and hypopituitarism are well addressed by Dr. Martinez Elevated troponins a. Rule out Acute non STEMI ........................................... Clinically stable Present at time of admission: Yes Status: Acute Problem specific AP: * Patient remains hemodynamically stable * Seen by Dr. Luiz Hamilton * Recommends 2D echo exam * Continued on antiplatelet agents Acute kidney injury on CKD..................................................... Worse today From A intravascular volume depletion B. Inadvertent effect of Dyazide C. Chronic hypertensive kidney disease Present at time of admission: Yes Status: Acute Problem specific AP: * Etiology causes-predominantly from state of hypovolemia, inadvertent effect of Dyazide * Electrolyte panels reflective hypovolemic hyperchloremia which is corrected * Has been off hypotonic saline infusion for past 24 hours * Serum creatinine value improved to 1.91 mg/dL as compared to 1.5 mg/dL * Diuretics like Dyazide has been held * We will closely monitor patient's renal functions * Avoid nephrotoxic agents Fairly well-controlled hypertension Hypercholesterolemia Present at time of admission: No Status: Chronic Problem specific AP: * Will cautiously continue antihypertensive medication and low-salt * Will continue patient on Lipitor and low-cholesterol diet 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 RS -obesity hypoventilation and hypoxia, pulmonary embolism, sudden b.CVS-cardiac arrhythmia, embolic events c. GI-GE reflux d. Endocrine-diabetes and comorbidities from diabetes e Neuro-embolic CVA, lifelong disability [id number] susceptibility for Covid infection and comorbidities Recommended patient to follow a. daily weight, b. ADA 1800-calorie diet-40% calories from breakfast 30% calories from lunch and dinner each, avoid carbonated soda c. Recommended aerobic exercises like walking 1-5 miles per day, riding on a stationary bike for 1-2 hours Patient education: * Updated depletion about his current condition treatment plans and prognosis * All his questions concerns were satisfactorily addressed Treatment plans as of today Continue hospital stay at telemetry bed Continue patient on IV Zosyn Continue IV steroids Monitor CBC CMP tomorrow morning Await for hepatitis panel results Await consultation from Dr. ino connell Reviewed input of Dr. Luiz Miller gastroenterology-case discussed with him Reviewed input of Dr. Serge marion, infectious Disease-case discussed with him Reviewed the results of Ultrasound CT of abdomen with patient Continue Neutra-Phos FIO2 2 L via nasal cannula NTG 0.4 mg sublingual Q 5" x 3 angina Morphine sulfate 2 mg slow IV push -unstable angina Education on obesity management VTE precautions Update patient The patient is well informed by me about 1. Clinical impressions, etiologic cause of his abdominal pains, hyperpyrexia and syncope treatment plans, side effects of medications including Avodart, sotalol, course of the disease and fair prognosis 2. All patient's question/ concerns raised by patient are satisfactorily addressed by me Prognosis Fair Dietary Evaluation Review Recommendations by RD: Decrease Calorie Intake Comments: Recommended intentional weight loss of 50 lbs through Low-carb low calorie 1800-calorie diet and aerobic exercises as tolerated a. RS -obesity hypoventilation and hypoxia, pulmonary embolism, sudden b.CVS-cardiac arrhythmia, embolic events c. GI-GE reflux d. Endocrine-diabetes and comorbidities from diabetes e Neuro-embolic CVA, lifelong disability [id number] susceptibility for Covid infection and comorbidities Expected Outcomes/Goals: Help avoiding comorbidities due to obesity Is there a minimum of two crit: No Plan discussed with: Patient Total Time (mins): 45 PAM MARION MD Jul 24, 2024 23:56
[2024-07-25] VITALS (7 sets, daily range): BP systolic 139–162; BP diastolic 67–76; PULSE 70–83; RESP 17–18; TEMP 98–98.3; O2SAT 93–99
[2024-07-25 10:02] LABS: Basophils # (auto) 0 10 ^3/uL (0-0.2); Basophils % (auto) 0.2 % (0.0-2.0); Eosinophils # (auto) 0 10 ^3/uL (0-0.8); Hematocrit 38.5 % (41.0-53.0); Hemoglobin 13.1 g/dL (13.5-17.5); Lymphocytes # (auto) 0.5 10 ^3/uL (0.4-5.4); Lymphocytes % (auto) 4.6 % (10.0-50.0); Mean Corpuscular Hemoglobin 32.5 pg (28.0-32.0); Mean Corpuscular Volume 95.4 fL (80.0-100.0); Monocytes # (auto) 0.3 10 ^3/uL (0-1.3); Monocytes % (auto) 3.2 % (0.0-12.0); Neutrophils # (auto) 9.5 10 ^3/uL (1.6-8.6); Platelet Count (auto) 175 10^3/uL (140-450); Red Blood Cells 4.04 10^6/uL (4.5-5.90); Red Cell Distribution Width 18.6 % (11.8-14.3); White Blood Cell 10.3 10^3/uL (4.4-10.8)
[2024-07-25 10:20] LABS: Albumin 3.9 g/dL (3.2-4.8); Anion Gap 8 (5-15); BUN/Creatinine Ratio 14.6 (10.0-20.0); Bilirubin, Total 1.1 mg/dL (0.2-1.0); Calcium 9.5 mg/dL (8.7-10.4); Carbon Dioxide 25 mmol/L (20-31); Chloride 106 mmol/L (98-107); Magnesium 2.4 mg/dL (1.6-2.6); Phosphorus 2.5 mg/dL (2.4-5.1); Potassium 3.8 mmol/L (3.5-5.1); Sodium 139 mmol/L (136-145); Total Protein 6.7 g/dL (5.7-8.2)
[2024-07-25 10:29] LABS: Alanine Aminotransferase 63 U/L (7-40); Alkaline Phosphatase 144 U/L (46-116); Aspartate Aminotransferase 81 U/L (13-40); Blood Urea Nitrogen 30 mg/dL (9-23); Glucose 138 mg/dL (74-106)
--- NOTE | 2024-07-25 12:52 | DVHPN2 ---
Progress Note - Dictate Date Seen: Jul 25, 2024 Has the PT tested + for MRSA If YES, has PT been informed?: No Medical Necessity Reason Pt with a Central, PICC or Fol: No Subjective The patient has recovered from hyperpyrexia (T-max 102.9 F) cough Chest congestion * Remains completely afebrile, hemodynamically stemming * Repeat CT scan abdomen shows no abnormality at biliary tract * Total bilirubin remains at 2.2 mg with mild elevation of AST/PLT * Currently followed by Dr. Serge Marion. Overnight events are reviewed through medical chart and case discussion with patient's assigned RN while making rounds on patient on the day of service vital signs Vital Sign Date Time Temp Pulse Resp B/P (MAP) Pulse Ox O2 Delivery O2 Flow Rate FiO2 07/25/24 09:02 70 157/76 07/25/24 09:00 98.0 17 99 98.0 07/24/24 20:00 Room Air* 0 21 Total Intake and Output 07/24/24 07/24/24 07/25/24 15:00 23:00 07:00 Intake Total 1050 ml 362.5 ml Output Total 1450 ml 1100 ml Balance -400 ml -737.5 ml medications Current Medications Medications Dose Ordered Sig/Anna Route Start Time Stop Time Status Last Admin Dose Admin Sodium Chloride 10 ml Q8HR IV 07/18/24 22:00 07/25/24 05:08 10 ML Docusate Sodium 100 mg BIDPRN PRN PO 07/18/24 21:45 Nitroglycerin 0.4 mg Q5MINP PRN SL 07/18/24 21:45 Tamsulosin HCl 0.4 mg DAILY PO 07/19/24 10:00 07/25/24 09:01 0.4 MG Aspirin 81 mg DAILY PO 07/19/24 10:00 07/20/24 10:13 81 MG Carvedilol 12.5 mg BID PO 07/18/24 22:00 07/25/24 09:02 12.5 MG EZETIMIBE 10 mg DAILY@LUNCH PO 07/19/24 12:00 07/25/24 12:10 10 MG Levothyroxine Sodium 100 mcg QAM PO 07/19/24 07:00 07/25/24 06:08 100 MCG Sotalol HCl 80 mg BID PO 07/18/24 22:00 07/25/24 09:01 80 MG Ticagrelor 90 mg BID PO 07/18/24 22:00 07/25/24 09:01 90 MG Ondansetron HCl 4 mg Q6HP PRN IV 07/18/24 22:15 07/24/24 08:58 4 MG Tamsulosin HCl 0.4 mg QPM PO 07/19/24 18:00 07/24/24 18:37 0.4 MG Finasteride 5 mg QPM PO 07/19/24 18:00 07/24/24 18:37 5 MG Morphine Sulfate 2 mg Q1H PRN SC 07/18/24 22:30 Belladonna Alkaloids/ Phenobarbital 5 ml Q8HP PRN PO 07/18/24 22:30 Pantoprazole Sodium 40 mg DAILY IV 07/19/24 10:00 07/25/24 09:00 40 MG Sucralfate 1 gm QIDACHS PO 07/19/24 07:00 07/25/24 12:10 1 GM Magnesium Sulfate/ Dextrose 100 ml @ 100 mls/hr Q1HR IV 07/20/24 22:00 Hold Piperacillin Sod/ Tazobactam Sod 50 ml @ 12.5 mls/hr Q6HR IV 07/22/24 17:00 07/25/24 12:11 12.5 MLS/HR Acetaminophen 500 mg Q6HP PRN PO 07/22/24 17:15 07/23/24 22:08 500 MG Hydrocortisone Sodium Succinate 50 mg Q8HR IV 07/24/24 06:00 07/25/24 05:08 50 MG objective Physical Exam General appearance: Well-developed, tall obese,elderly white male in discomfort Awake alert oriented x3 no respiratory distress Head: Normocephalic nontraumatic Eyes: EOMI, JOIE, sclera tinge icteric, conjunctive-pale ENT: No congestion, NSL bilateral symmetrical, oral mucosa dry Neck: Supple, carotid upstroke +2, trachea midline, JVD-3 cm, C spine- Full ROM No thyroid or lymph node , no use of sternomastoid muscle Chest: Bilateral symmetrical expansions, No costochondral tenderness Lungs: clear breath sounds all over except reduced at bases CVS: PMI- 1.5 cm medial to L MCL in fifth ICS , S1-S2 NSR no S3 GI: Abdomen soft, obese, bowel sounds normoactive RUQ tenderness-present, no rebound tenderness No hepatosplenomegaly, no mass no hernia , : No CVA tenderness, no bladder mass palpable, genitalia-NE SKIN: Turgor normal, color pink, no rash, no icterus, No varicosity, no ulcers or wounds EXTs: No edema, color pink, no rash, no ecchymosis distal pulses +2 capillary refill <2 seconds, No open wounds JOINTS; full range of motion BACK: No apparent lumbosacral spinal muscle tenderness, LYMPH NODES: No cervical, axillary or inguinal lymph nodes Neuro: Awake alert oriented 4, coherent, all cognitives- intact No pronator drift, no focal motor/sensory deficit, DTR + PSYCH: No new focal finding laboratory and microbiology Laboratory Tests 07/25/24 09:49 Test 07/25/24 09:49 Range/Units Serum Glucose 138 H 74-106 mg/dL Problem List 1. Acute RUQ/epigastric abdominal pains accompanied by hyperpyrexia and jaundice...................................... Significantly improving a. Ruled out cholangitis/ Choledocholithiasis 2. Hemolytic jaundice 3. Elevated troponins a. Status post recent ablation therapy b. Possible Acute non STEMI 4. Coronary artery disease-status post CABG and PTCA 4. Fairly well-controlled hypertension 5. Hypercholesterolemia 6. Acute kidney injury on CKD From A intravascular volume depletion B. Inadvertent effect of diuretics 2' Diagnosis/Comorbidities Assessment/Plan Medical decision making: Ruled out acute cholangitis Lower respiratory tract infection accompanied by hyperpyrexia, RUQ abdominal pains, mild jaundice and elevated liver functions.... Improving Adrenal insufficiency and hypopituitarism Present at time of admission: Yes Status: Acute Problem specific AP: * The patient has recovered from hyperpyrexia, remains hemodynamically stable * Noted significantly improved altered mental status * Patient reports symptoms of hallucinations with hyperpyrexia in past * Reports improvement in state of chest congestion * Repeat CT scan abdomen is unremarkable for biliary tract pathology * Hepatitis panel is unremarkable * Leukocytosis improved to 8.4 K with neutrophilia (84%)-suggestive of acute inflammatory condition * Liver enzymes AST/ALT have improved to the baseline while noted High value of alkaline phosphatase and bilirubin at 2.2 mg/dL * High value of reticulocyte points at hemolytic jaundice- * Continue patient on Revised dose of IV Zosyn * Question about adrenal insufficiency and hypopituitarism are well addressed by Dr. Martinez Elevated troponins a. Rule out Acute non STEMI ........................................... Clinically stable Present at time of admission: Yes Status: Acute Problem specific AP: * Patient remains hemodynamically stable * Seen by Dr. Luiz Hamilton * Recommends 2D echo exam * Continued on antiplatelet agents Acute kidney injury on CKD..................................................... Worse today From A intravascular volume depletion B. Inadvertent effect of Dyazide C. Chronic hypertensive kidney disease Present at time of admission: Yes Status: Acute Problem specific AP: * Etiology causes-predominantly from state of hypovolemia, inadvertent effect of Dyazide * Electrolyte panels reflective hypovolemic hyperchloremia which is corrected * Has been off hypotonic saline infusion for past 24 hours * Serum creatinine value improved to 1.91 mg/dL as compared to 1.5 mg/dL * Diuretics like Dyazide has been held * We will closely monitor patient's renal functions * Avoid nephrotoxic agents Fairly well-controlled hypertension Hypercholesterolemia Present at time of admission: No Status: Chronic Problem specific AP: * Will cautiously continue antihypertensive medication and low-salt * Will continue patient on Lipitor and low-cholesterol diet 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 RS -obesity hypoventilation and hypoxia, pulmonary embolism, sudden b.CVS-cardiac arrhythmia, embolic events c. GI-GE reflux d. Endocrine-diabetes and comorbidities from diabetes e Neuro-embolic CVA, lifelong disability [id number] susceptibility for Covid infection and comorbidities Recommended patient to follow a. daily weight, b. ADA 1800-calorie diet-40% calories from breakfast 30% calories from lunch and dinner each, avoid carbonated soda c. Recommended aerobic exercises like walking 1-5 miles per day, riding on a stationary bike for 1-2 hours Patient education: * Updated depletion about his current condition treatment plans and prognosis * All his questions concerns were satisfactorily addressed Treatment plans as of today Continue hospital stay at telemetry bed Continue patient on IV Zosyn Continue IV steroids Monitor CBC CMP tomorrow morning Await for hepatitis panel results Await consultation from Dr. ino connell Reviewed input of Dr. Luiz Miller gastroenterology-case discussed with him Reviewed input of Dr. Serge marion, infectious Disease-case discussed with him Reviewed the results of Ultrasound CT of abdomen with patient Continue Neutra-Phos FIO2 2 L via nasal cannula NTG 0.4 mg sublingual Q 5" x 3 angina Morphine sulfate 2 mg slow IV push -unstable angina Education on obesity management VTE precautions Update patient The patient is well informed by me about 1. Clinical impressions, etiologic cause of his abdominal pains, hyperpyrexia and syncope treatment plans, side effects of medications including Avodart, sotalol, course of the disease and fair prognosis 2. All patient's question/ concerns raised by patient are satisfactorily addressed by me Dietary Evaluation Review Recommendations by RD: Decrease Calorie Intake Comments: Recommended intentional weight loss of 50 lbs through Low-carb low calorie 1800-calorie diet and aerobic exercises as tolerated a. RS -obesity hypoventilation and hypoxia, pulmonary embolism, sudden b.CVS-cardiac arrhythmia, embolic events c. GI-GE reflux d. Endocrine-diabetes and comorbidities from diabetes e Neuro-embolic CVA, lifelong disability [id number] susceptibility for Covid infection and comorbidities Expected Outcomes/Goals: Help avoiding comorbidities due to obesity Is there a minimum of two crit: PAM Moore MD Jul 25, 2024 12:52
[2024-07-25] MEDS ORDERED: LEVO500T91 PO (12:54)
[2024-07-25] MEDS ORDERED: HYDROCORTISONE 10 MG TAB PO SCH (18:00)
--- NOTE | 2024-07-25 21:23 | DVHPN2 ---
Progress Note - Dictate Date Seen: Jul 25, 2024 Has the PT tested + for MRSA If YES, has PT been informed?: No Medical Necessity Reason Pt with a Central, PICC or Fol: No Subjective Patient was seen and evaluated in follow up. Patient has no new complaints at this time. Patient denies any cardiac symptoms. Patient is cardiac stable for discharge. vital signs Vital Sign Date Time Temp Pulse Resp B/P (MAP) Pulse Ox O2 Delivery O2 Flow Rate FiO2 07/25/24 14:21 98.3 72 95 07/25/24 13:00 17 141/67 (91) 07/25/24 10:00 Room Air* 0 21 Total Intake and Output 07/24/24 07/24/24 07/25/24 15:00 23:00 07:00 Intake Total 1050 ml 362.5 ml Output Total 1450 ml 1100 ml Balance -400 ml -737.5 ml objective GENERAL: Awake, alert, oriented. LUNGS: Clear. CARDIOVASCULAR: Heart sounds are good. ABDOMEN: Soft. laboratory and microbiology Laboratory Tests 07/25/24 09:49 Test 07/25/24 09:49 Range/Units Serum Glucose 138 H 74-106 mg/dL Problem List Acute epigastric abdominal pain. NSTEMI. Coronary artery disease-status post CABG and PTCA. Fairly well-controlled hypertension. Hypercholesterolemia. Acute kidney injury on CKD. Prostatic hyperplasia. HFrEF. Atrial fibrillation, s/p recent cardiac ablation. Assessment/Plan Continued all current supportive medical care. Aspirin, Lipitor. Coreg. Morphine for pain management. Nitro SL. GI prophylactics. Additional plan as per the hospital course. Dietary Evaluation Review Recommendations by RD: Decrease Calorie Intake Comments: 1) Consider a Cardiac diet 2) Continue current plan of care Expected Outcomes/Goals: F/U in 3-5 days Is there a minimum of two crit: No Plan discussed with: Patient CHANTEL REY MD Jul 25, 2024 21:23
[2024-07-26] MEDS ORDERED: HYDROCORTISONE 10 MG TAB PO SCH (10:00)
--- NOTE | 2024-07-27 17:17 | DVHPN2 ---
Consult Progress Note Date Seen: Jul 25, 2024 Subjective Patient reports: Feels better (no fever for 24 hours) Objective vital signs Vital Sign Date Time Temp Pulse Resp B/P (MAP) Pulse Ox O2 Delivery O2 Flow Rate FiO2 07/25/24 14:21 98.3 72 95 07/25/24 13:00 17 141/67 (91) 07/25/24 10:00 Room Air* 0 21 medications PHYSICAL EXAM: - GENERAL: Alert and oriented x 3. No acute distress. Well-nourished. ? - EYES: EOMI. Anicteric. ?- HENT: Moist mucous membranes. No scleral icterus. No cervical lymphadenopathy. ?- LUNGS: Clear to auscultation bilaterally. No accessory muscle use.? - CARDIOVASCULAR: Regular rate and rhythm. No murmur. No JVD.? - ABDOMEN: Soft, non-tender and non-distended. No palpable masses.? - EXTREMITIES: No edema. Non-tender.?SKIN: No rashes or lesions. Warm. ? - NEUROLOGIC: No focal neurological deficits. CN II-XII grossly intact, but not individually tested.? - PSYCHIATRIC: Cooperative. Appropriate mood and affect. laboratory and microbiology Laboratory Tests 07/25/24 09:49 Test 07/25/24 09:49 Range/Units Serum Glucose 138 H 74-106 mg/dL Problem List/Assessment/Plan Problem List/Assessment/Plan ID Problem List: - Acute epigastric abdominal pain - Hyperbilirubinemia - Elevated liver enzymes - Fevers - Possible ascending cholangitis Assessment This is a 73 y.o. male with a past medical history of hypertension, hypercholesterolemia, coronary artery disease status post multiple stents and CABG, sick sinus syndrome with pacemaker and ICD, COPD, asthma, GERD, chronic kidney disease, BPH, pituitary adenoma, and gouty arthritis, who presents with acute onset of severe epigastric abdominal pain. He developed severe, colicky epigastric abdominal pain, rated 10/10, causing him to be doubled over. On evaluation in the ED, his blood pressure was 95/65, which has since improved. He denies nausea, vomiting, or heavy meals prior to symptom onset. He has not had recurrent severe abdominal pain since admission but is experiencing fevers up to 102.9F. Laboratory evaluation reveals elevated liver enzymes with AST 137 U/L, ALT 69 U/L, alkaline phosphatase 197 U/L, and total bilirubin initially 2.1 mg/dL, peaking at 24 mg/dL during admission. Imaging including abdominal CT and ultrasound were unremarkable, showing no acute intra-abdominal findings, no biliary duct dilation, and no hydronephrosis. Blood cultures were obtained and are no growth to date. Plan: - Suspect ascending cholangitis as the etiology of fevers and elevated LFTs in a post-cholecystectomy patient. continue Zosyn - can be discharged on Levofloxacin 500mg qdx 10 days. recommend patient check temperature at home and should fevers or abdominal pain recur he should be taken to hospital with ERCP capacity. - Continue to monitor vital signs and trend liver enzymes. - Follow up on blood cultures. - Recommend MRCP to evaluate the biliary tract if feasible, considering pacemaker/ICD and bilateral prosthetic knee joints. - Defer any interventions, including ERCP, to GI service. Plan discussed with: Patient Dietary Evaluation Review Recommendations by RD: Decrease Calorie Intake Comments: 1) Consider a Cardiac diet 2) Continue current plan of care Expected Outcomes/Goals: F/U in 3-5 days Is there a minimum of two crit: KALEY Moore MD Jul 27, 2024 17:17
== END 2024-07-25 16:50 | disposition home or self-care (01) | DRG 280 ==
LOC: EDBD 16:18 → ER 16:18 → TELE 21:44 → TELE-WESTW 07-19 22:40
PROVIDERS: ADMIT Internal Medicine; ATTEND Specialist
PROC: 5A09357 Assistance with Respiratory Ventilation, Less than 24 Consecutive Hours, Continuous Positive Airway Pressure (ICD-10-PCS; principal; 2024-07-20)
DX: I21.4 Non-ST elevation (NSTEMI) myocardial infarction (principal); G93.41 Metabolic encephalopathy; E27.40 Unspecified adrenocortical insufficiency; N17.9 Acute kidney failure, unspecified; I50.20 Unspecified systolic (congestive) heart failure; I13.0 Hypertensive heart and chronic kidney disease with heart failure and stage 1 through stage 4 chronic kidney disease, or unspecified chronic kidney disease; E23.0 Hypopituitarism; I25.10 Atherosclerotic heart disease of native coronary artery without angina pectoris; E78.00 Pure hypercholesterolemia, unspecified; N40.0 Benign prostatic hyperplasia without lower urinary tract symptoms; E11.22 Type 2 diabetes mellitus with diabetic chronic kidney disease; E03.8 Other specified hypothyroidism; K21.9 Gastro-esophageal reflux disease without esophagitis; M10.9 Gout, unspecified; I48.91 Unspecified atrial fibrillation; Z96.651 Presence of right artificial knee joint; N18.30 Chronic kidney disease, stage 3 unspecified; N28.1 Cyst of kidney, acquired; E87.8 Other disorders of electrolyte and fluid balance, not elsewhere classified; R09.02 Hypoxemia; J44.89 Other specified chronic obstructive pulmonary disease; D72.828 Other elevated white blood cell count; E86.1 Hypovolemia; Z68.33 Body mass index [BMI] 33.0-33.9, adult; Z88.1 Allergy status to other antibiotic agents; Z91.041 Radiographic dye allergy status; Z91.040 Latex allergy status; Z90.49 Acquired absence of other specified parts of digestive tract; Z82.49 Family history of ischemic heart disease and other diseases of the circulatory system; Z95.5 Presence of coronary angioplasty implant and graft; Z95.810 Presence of automatic (implantable) cardiac defibrillator; Z79.82 Long term (current) use of aspirin
CPT/HCPCS: 36415; 71045; 74176; 74177; 76700; 80053; 80061; 80074; 80307; 80320; 81001; 82140; 82607; 82746; 83010; 83690; 83735; 83880; 84100; 84443; 84484; 85025; 85045; 87040; 93005; 93306; 94640; 99291; G0378; J2405; J2470; J2543